=== PATIENT | female | born 1980 | race Hispanic/Latino ===

== ENCOUNTER 2017-02-12 17:12 | Inpatient (IN) | payer MEDICAID ==
[2017-02-12 17:40] LABS: BASO # 0.09 K/mm3 (0.0-2.0); BASO % 2.2 % (0.0-3.0); EOS % 0.5 % (1.5-5.0); GRAN # 2.22 (1.4-6.5); GRAN % 55.4 % (50.0-68.0); HEMATOCRIT 39.6 % (36.0-48.0); LYMPH # 1.2 (1.2-3.4); LYMPH % 30.9 % (22.0-35.0); MEAN CELL VOLUME 105.6 fl (80.0-105.0); MEAN CORPUSCULAR HEMOGLOBIN 36.5 pg (25.0-35.0); MEAN CORPUSCULAR HGB CONC 34.6 g/dl (31.0-37.0); MONO # 0.4 (0.1-0.6); RED CELL DISTRIBUTION WIDTH 15.4 % (11.5-14.5)
[2017-02-12 17:49] LABS: ALB/GLOB RATIO 1.5 (1.1-1.8); ALKALINE PHOSPHATASE 115 U/L (38-126); ALT/SGPT 26 U/L (7-56); AST/SGOT 31 U/L (14-36); BILIRUBIN,TOTAL 0.2 mg/dL (0.2-1.3); BLOOD UREA NITROGEN 4 mg/dL (7-21); CALCIUM 9.9 mg/dL (8.4-10.5); CARBON DIOXIDE 20 mmol/L (21-33); CHLORIDE 103 mmol/L (98-107); GFR AFRICAN-AMERICAN > 60; GLUCOSE,RANDOM 215 mg/dL (70-110); LIPASE 59 U/L (23-300); MAGNESIUM 1.8 mg/dL (1.7-2.2); POTASSIUM 3.7 mmol/L (3.6-5.0); SODIUM 146 mmol/L (132-148); TOTAL PROTEIN 8.4 g/dL (5.8-8.3)
[2017-02-12 17:52] LABS: VALPROIC ACID 68 ug/mL (50.0-100.0)
[2017-02-12 18:02] LABS: TROPONIN I < 0.01 ng/mL
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
[2017-02-12 18:20] LABS: PH,URINE 8.5 (4.7-8.0); URINE BILIRUBIN NEGATIVE (NEGATIVE); URINE BLOOD NEGATIVE (NEGATIVE); URINE GLUCOSE (UA) NEGATIVE (NEGATIVE); URINE KETONE TRACE mg/dL (NEGATIVE); URINE LEUKOCYTE ESTERASE NEGATIVE Leu/uL (NEGATIVE); URINE PROTEIN 30 mg/dL (<30 mg/dL); URINE UROBILINOGEN 0.2 E.U./dL (<1 E.U./dL)
[2017-02-12 18:29] LABS: URINE APPEARANCE SL CLOUDY (CLEAR); URINE COLOR YELLOW (YELLOW)
[2017-02-12] MEDS ORDERED: Sodium Chloride 0.9% 1,000 ML IV STA (18:29)
[2017-02-12 18:30] LABS: URINE RBC NEGATIVE /hpf (0-2); URINE WBC 0 - 2 /hpf (0-6)
[2017-02-12] MEDS ORDERED: Fosphenytoin 1,000 MG in Sodium Chloride 0.9% 50 ML IV STA (18:45)
[2017-02-12] MEDS ORDERED: Thiamine 100 mg/ml Inj IV STA ×2 (20:49→22:53)
--- NOTE | 2017-02-12 20:54 | CT ---
EXAM: CT Head Without Intravenous Contrast CLINICAL HISTORY: 36 years old, female; Signs and symptoms; Altered mental status/memory loss; Additional info: Alt ms TECHNIQUE: Axial computed tomography images of the head/brain without intravenous contrast. All CT scans at this facility use one or more dose reduction techniques, viz.: automated exposure control; ma/kV adjustment per patient size (including targeted exams where dose is matched to indication; i.e. head); or iterative reconstruction technique. COMPARISON: No relevant prior studies available. FINDINGS: Brain: No intracranial hemorrhage. No mass. No definite edema. Ventricles: No hydrocephalus. Bones/joints: No acute fracture. Soft tissues: Mild RIGHT parietal soft tissue swelling. Sinuses: Probable RIGHT maxillary retention cyst, incompletely imaged. Mastoid air cells: No mastoid effusion. Orbits: Unremarkable as visualized. IMPRESSION: 1. No acute intracranial abnormality. 2. Incidental/non-acute findings are described above.
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
[2017-02-12 22:15] LABS: VENOUS BLOOD GAS BASE EXCESS 3.3 mmol/L (0.0-2.0); VENOUS BLOOD PH 7.44 (7.32-7.43)
[2017-02-12] MEDS: Sodium Chloride 0.9% 1,000 ML IV SCH (22:39)
[2017-02-13] MEDS: Sodium Chloride 0.9% 1,000 ML IV SCH ×4 (05:30→21:04)
[2017-02-13 07:02] LABS: ALB/GLOB RATIO 1.4 (1.1-1.8); ALKALINE PHOSPHATASE 81 U/L (38-126); ALT/SGPT 27 U/L (7-56); AST/SGOT 25 U/L (14-36); BILIRUBIN,TOTAL 0.2 mg/dL (0.2-1.3); BLOOD UREA NITROGEN 5 mg/dL (7-21); CALCIUM 9.2 mg/dL (8.4-10.5); CARBON DIOXIDE 25 mmol/L (21-33); CHLORIDE 111 mmol/L (98-107); GFR AFRICAN-AMERICAN > 60; GLUCOSE,RANDOM 74 mg/dL (70-110); MAGNESIUM 1.5 mg/dL (1.7-2.2); PHOSPHOROUS 3.9 mg/dL (2.5-4.5); SODIUM 149 mmol/L (132-148); TOTAL PROTEIN 6.1 g/dL (5.8-8.3)
[2017-02-13 07:21] LABS: BASO # 0.05 K/mm3 (0.0-2.0); BASO % 0.7 % (0.0-3.0); EOS # 0.1 (0.0-0.7); EOS % 1.5 % (1.5-5.0); GRAN # 3.82 (1.4-6.5); GRAN % 55.5 % (50.0-68.0); HEMATOCRIT 36.3 % (36.0-48.0); LYMPH # 2.1 (1.2-3.4); LYMPH % 30.8 % (22.0-35.0); MEAN CELL VOLUME 107.4 fl (80.0-105.0); MEAN CORPUSCULAR HEMOGLOBIN 35.2 pg (25.0-35.0); MEAN CORPUSCULAR HGB CONC 32.8 g/dl (31.0-37.0); MEAN PLATELET VOLUME 9.3 fl (7.0-11.0); MONO # 0.8 (0.1-0.6); MONO % 11.5 % (1.0-6.0); RED CELL DISTRIBUTION WIDTH 15.6 % (11.5-14.5); WHITE BLOOD COUNT 6.9 10^3/ul (4.5-11.0)
[2017-02-13] MEDS ORDERED: Potassium Chloride 20 mEq ER Tab PO STA (07:26)
--- NOTE | 2017-02-13 07:29 | RAD ---
HISTORY: alt ms COMPARISON: No prior. FINDINGS: LUNGS: No active pulmonary disease. PLEURA: No significant pleural effusion identified, no pneumothorax apparent. CARDIOVASCULAR: Normal. OSSEOUS STRUCTURES: No significant abnormalities. VISUALIZED UPPER ABDOMEN: Gas seen distending the region of the gastric viscus incidentally. OTHER FINDINGS: None. IMPRESSION: No acute cardiopulmonary disease appreciated.
[2017-02-13] MEDS: Multi Vitamins 15 mL UD Oral Solution PO SCH (08:04)
--- NOTE | 2017-02-13 08:44 | CARD ---
APPROVED REPORT EKG Measurement Heart [id number] <Conclusion> Sinus tachycardia Possible Left atrial enlargement
[2017-02-13] MEDS: Pantoprazole 40 mg EC Tab PO SCH (09:20)
[2017-02-13] MEDS ORDERED: Divalproex 500 mg ER (ONCE DAILY formulation) PO SCH (10:00)
[2017-02-13] MEDS ORDERED: Phenytoin 100 mg/4 ml Oral Susp UD PO SCH (10:00)
[2017-02-13] MEDS: Divalproex 500 mg DR(BID formulation) PO SCH ×2 (13:09→21:03)
[2017-02-13 13:22] LABS: FOLATE 3.1 ng/mL
--- NOTE | 2017-02-13 13:24 | CP.PCM.PN ---
<TIFFANIE WELSH - Last Filed: 02/13/17 13:20> Subjective - Date & Time of Evaluation Date of Evaluation: 02/13/17 Time of Evaluation: 10:00 - Subjective Subjective: patient was seen and examined bedside. she states that she doesn't recall much of the events from yesterday except waking up and taking a shower like she normally does, and then only remembers waking up in the ICU bed. She states that the night before, she had a glass of wine and two cups of vodka (socially) with her friends but denies being intoxicated or withdrawing. She denies street drugs. States her PMD is Dr. Cooper and he's the one that prescribes her seizure meds. She states that she is only on Dilantin and Depakote for Bipolar dz. She states that her seizures usually present as vigorous shaking, bleeding in ears and foaming at mouth. She states that she lives w/ brother and dad, and states that they admitted she had a seizure last night. Today, she denied any cp , palpitations, sob, fever, n/v, confusion, or weakness. denies falls/head trauma, preceding symptoms/events, recent illness or sick contacts. Objective - Vital Signs/Intake and Output Vital Signs (last 24 hours): Temp Pulse Resp BP Pulse Ox 98.4 F 93 H 17 121/73 100 02/13/17 04:00 02/13/17 12:10 02/13/17 12:10 02/13/17 11:00 02/13/17 12:10 Intake and Output: 02/13/17 02/13/17 06:59 18:59 Intake Total 900 Balance 900 - Medications Medications: Current Medications Chlordiazepoxide (Librium) 10 mg PO Q8 PRN; Protocol PRN Reason: Symptoms of alcohol withdrawl Clonazepam (Klonopin) 0.5 mg PO BID [facility] PRN Reason: Protocol Last Admin: 02/13/17 09:26 Dose: 0.5 mg Divalproex Sodium (Depakote Dr(*Bid*)) 500 mg PO BID [facility] PRN Reason: Protocol Last Admin: 02/13/17 13:09 Dose: 500 mg Escitalopram Oxalate (Lexapro) 10 mg PO DAILY [facility] Last Admin: 02/13/17 09:20 Dose: 10 mg Folic Acid (Folic Acid) 1 mg PO DAILY [facility] Last Admin: 02/13/17 09:20 Dose: 1 mg Heparin Sodium (Porcine) (Heparin) 5,000 units SC Q12 [facility] PRN Reason: Protocol Last Admin: 02/13/17 09:20 Dose: 5,000 units Sodium Chloride (Sodium Chloride 0.9%) 1,000 mls @ 150 mls/hr IV .Q6H40M [facility] Last Admin: 02/13/17 05:30 Dose: 150 mls/hr Lorazepam (Ativan) 2 mg IVP Q4H PRN; Protocol PRN Reason: Seizure activity Magnesium Oxide (Mag-Ox) 400 mg PO BID [facility] Multivitamins/Vitamin C (Multi-Delyn Liquid) 15 ml PO 0800 [facility] Last Admin: 02/13/17 08:04 Dose: 15 ml Pantoprazole Sodium (Protonix Ec Tab) 40 mg PO DAILY [facility] Last Admin: 02/13/17 09:20 Dose: 40 mg Phenytoin (Dilantin) 100 mg PO TID [facility] Last Admin: 02/13/17 09:28 Dose: 100 mg Quetiapine Fumarate (Seroquel) 100 mg PO HS [facility] PRN Reason: Protocol Thiamine HCl (Vitamin B1 Tab) 100 mg PO DAILY [facility] Last Admin: 02/13/17 09:20 Dose: 100 mg - Labs Labs: 02/13/17 06:15 02/13/17 06:15 - Constitutional Appears: Well, No Acute Distress - Head Exam Head Exam: ATRAUMATIC, NORMAL INSPECTION, NORMOCEPHALIC - Eye Exam Eye Exam: EOMI, Normal appearance, PERRL Pupil Exam: NORMAL ACCOMODATION - ENT Exam ENT Exam: Mucous Membranes Moist, Normal Exam, Normal External Ear Exam - Neck Exam Neck Exam: Full ROM, Normal Inspection. absent: Meningismus - Respiratory Exam Respiratory Exam: Clear to Ausculation Bilateral, NORMAL BREATHING PATTERN. absent: Accessory Muscle Use, Rales, Rhonchi, Wheezes, Respiratory Distress - Cardiovascular Exam Cardiovascular Exam: RRR, +S1, +S2. absent: Gallop, JVD, Rubs - GI/Abdominal Exam GI & Abdominal Exam: Soft, Normal Bowel Sounds. absent: Distended, Tenderness - Extremities Exam Extremities Exam: Normal Inspection. absent: Calf Tenderness, Pedal Edema - Back Exam Back Exam: NORMAL INSPECTION - Neurological Exam Neurological Exam: Alert, Awake, CN II-XII Intact, Oriented x3. absent: Motor Sensory Deficit Neuro motor strength exam: Left Upper Extremity: 5, Right Upper Extremity: 5, Left Lower Extremity: 5, Right Lower Extremity: 5 Additional comments: pt oriented but cannot recall events of yesterday not confused, and carries coherent conversation well no facial asymmetry, focal weakness, facial droop, tremors - Psychiatric Exam Psychiatric exam: Normal Affect, Normal Mood - Skin Skin Exam: Normal Color, Warm Assessment and Plan - Assessment and Plan (Free Text) Assessment: 36 yo F PMH seizure disorder, bipolar dz, recent medical overdose (klonopin), ETOH abuse, asthma and uterine and breast CA 9in remission) presented to ED w/ AMS. Now alert and responsive on HD2; pt downgraded to remote tele. AMS likely 2 /2 seizure vs CVA vs infectious vs alcohol/substance/med overdose vs psych causes. Plan: 1. AMS, of un-identified etiology, likely psychosis - CT head showed no acute intracranial abnormality, but +mild R parietal soft tissue swelling - CXR unremarkable - Troponin I negative x1 - EKG done and was sinus tachy w/ possible LA enlargement - Thyroid panel ordered to r/o endocrine causes - EEG ordered to r/o seizure activity w/ postictal state - CT findings may suggest some head trauma, r/o TBI? - Neurology consulted, recs appreciated - B12 level normal - afebrile, clean UA and no leukocytosis, unlikely infectious cause - UDS+ benzos - ETOH level 35 - psych consulted for possible psychosis - cont thiamine, MV, folic acid 2. Hx seizures - Phenytoin level trended - cont Dilantin - Ativan and Librium PRN for seizure activity/ETOH withdrawal 3. Hypokalemia - repleted - f/u BMP 4. Hyperglycemia, no prior hx - resolved w/ no intervention 5. Hypomagnesemia - repleting - f/u level 6. Increased lactate - improving on IVF - Lactate initially 7.1, then 2.8 7. Hx Bipolar dz - cont Seroquel, Lexapro, Klonopin Regular diet Heparin/PTX NS 150 Patient was seen, evaluated and discussed w/ attending, Dr. Haroon Welsh PGY1 <Sade Patiño - Last Filed: 02/14/17 15:14> Objective - Vital Signs/Intake and Output Vital Signs (last 24 hours): Temp Pulse Resp BP Pulse Ox 98.4 F 80 16 116/65 99 02/14/17 12:00 02/14/17 13:00 02/14/17 13:00 02/14/17 13:00 02/14/17 13:00 Intake and Output: 02/14/17 02/14/17 06:59 18:59 Intake Total 1200 Balance 1200 - Labs Labs: 02/14/17 06:30 02/14/17 06:30 Attending/Attestation - Attestation I have personally seen and examined this patient.: Yes I have fully participated in the care of the patient.: Yes I have reviewed all pertinent clinical information, including history, physical exam and plan: Yes Notes (Text): I have seen and examined the patient at bedside. Agree with the above note with the following additions/ exceptions: Briefly this is 36 year old female with history of seizure disorder, bipolar disorder, recent klonopin overdose, alcohol abuse, asthma, uterine and breast cancer in remission who was admitted for AMS. She was pacing into the shower with her clothes on. As per patient, her family noticed a tonic clonic seizure followed by post ictal episode when she became unresponsive. Patient cannot recall these events. Neuro and psych consult pending. Patient denies use of street drugs. EEG pending. Follow up phenytoin and depakote level. Start MVI, thiamine and folic acid given history of alcohol abuse. Potassium was repleted. Mag level pending. She has increase lactate level upon admission which can be due to seizure and its trending down. Continue IVF. There is no indication to start antibiotics at this time. Upon discharge patient will follow up with Dr Cooper. Dr Sade Patiño
[2017-02-13 14:05] LABS: FREE T4 0.93 ng/dL (0.78-2.19)
[2017-02-13 14:19] LABS: THYROID STIMULATING HORMONE 1.92 mIU/mL (0.46-4.68)
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
--- NOTE | 2017-02-13 16:08 | EEG ---
DATE: 02/13/2017 CONDITION OF THE RECORDING: Drowsy. DIAGNOSIS: Seizure. MEDICATIONS: Reviewed by nurse per reconciliation sheet. INTERPRETATION: This is a 16-channel international recording. Background activity was composed of 7 to 8 cycles per second. There was a small amount of beta activity of 16 to 20 cycles per second seen in this recording. There was increased amount of theta activity of 5 to 7 cycles per second seen in this tracing. Drowsiness was characterized by mixed theta and beta activities. Sleep was characterized by vertex transient waves, sleep spindles, and bilateral slowing. Photic stimulation showed no change in the tracing. No paroxysmal activity noted in this recording. There was some mild intermittent episodes of slowing throughout the EEG. CONCLUSION: This is an abnormal EEG due to presence of mild diffuse slowing consistent with mild bilateral cerebral dysfunction. No evidence of any epileptiform activity. Please clinically correlate. Brody Massey MD
[2017-02-13 17:20] VITALS: O2SAT 99
[2017-02-13] MEDS: Magnesium Oxide 400 mg Tab UD PO SCH (17:30)
--- NOTE | 2017-02-13 22:02 | CON ---
HISTORY OF PRESENT ILLNESS: The patient is a 36-year-old female with a reported history of bipolar disorder. The patient has history of alcohol use disorder, seizure disorder and multiple psychiatric admissions in the past, most recent was about 5 days ago, on 07 of February. The patient was admitted on the CCU unit for erratic behavior and disorganized behavior and possible seizures. The patient was seen and examined today. Medications reviewed. Previous discharge notes reviewed. Most recently, the patient was discharged from the [facility] on 07 of February. Discharge medications were Depakote 500 mg twice a day, Lexapro 10 mg daily, ReVia 50 mg daily and Seroquel 100 mg at the nighttime. The patient reports that after she was discharged from the hospital she was doing well. The patient denied being depressed; denied thoughts of harming herself or others, denied intents or plan. The patient reports that the main reason why she came to the hospital, it was the seizures and the patient said that she does not remember episode what happened prior to coming to the hospital, but the patient adamantly denied that she wanted to end up her life and that she wanted to overdose on medication. The patient said that at present moment she feels fine. The patient reported that she is not depressed. Denied hearing voices. Denied seeing things. The patient reported to feel irritable. Denied mind racing. The patient reported as being compliant with the medication and as per lab report, the patient's Depakote level was 68 and phenytoin level was 5. Besides that, the patient denied history of suicidal attempts in the past. The patient denied family history of suicidal attempt. PHYSICAL EXAMINATION: This food writer reviewed vital signs, vital signs seem to be stable; pulse is 88, respirations 22, oxygen saturation is 99%. MEDICATIONS: Reviewed. The patient is on Librium 10 mg q. 8 hours as needed, Klonopin 0.5 mg twice a day, Depakote 500 mg twice a day, Lexapro 10 mg daily, folic acid 1 mg daily, heparin and she also is on Keppra 500 mg twice a day, Ativan 2 mg IV push every 4 hours for seizure activities as needed, magnesium oxide, Protonix, Seroquel 100 mg at the nighttime, sodium chloride, vitamin B1. LABORATORY DATA: Reviewed. MENTAL STATUS EXAMINATION: The patient appears to be alert, oriented, pleasant, cooperative, mildly irritable. Intermittent eye contact. Speech was normal rate on quality and quantity. Mood described "I'm feeling fine, I'm not depressed." Affect was constricted, but reactive. Mood congruent. Thought process was coherent and goal directed. Thought content: The patient denied visual, auditory or tactile hallucinations. Denied paranoid ideation. The patient denied thoughts of harming herself or others, denied intents or plan. Insight and judgement are fair. Impulses are well controlled. IMPRESSION: As per history, a history of bipolar disorder, seizure disorder and alcohol use disorder. The patient's alcohol level at the time of admission was 35 and phenytoin level was 5. PLAN: The patient denied being depressed, denied thoughts of harming herself or others, denied prior episode of overdosing on medication. The patient's medications resumed. This food writer will follow up on this patient to just to make sure that this food writer is not missing anything, but the patient adamantly denied that she wanted to end up her life prior to coming to the hospital. Her bizarre and disorganized behavior could be related to the fact that she has seizure disorder. Should you have any questions give me a call back. Thank you very much. Esperanza Weaver MD
[2017-02-14 07:35] LABS: BASO # 0.06 K/mm3 (0.0-2.0); BASO % 1.2 % (0.0-3.0); EOS # 0.1 (0.0-0.7); EOS % 2.5 % (1.5-5.0); GRAN # 1.59 (1.4-6.5); GRAN % 32.8 % (50.0-68.0); HEMATOCRIT 34.5 % (36.0-48.0); LYMPH # 2.6 (1.2-3.4); LYMPH % 53.4 % (22.0-35.0); MEAN CELL VOLUME 106.8 fl (80.0-105.0); MEAN CORPUSCULAR HEMOGLOBIN 35.3 pg (25.0-35.0); MEAN PLATELET VOLUME 9.4 fl (7.0-11.0); MONO # 0.5 (0.1-0.6); MONO % 10.1 % (1.0-6.0); RED CELL DISTRIBUTION WIDTH 15.3 % (11.5-14.5); WHITE BLOOD COUNT 4.9 10^3/ul (4.5-11.0)
[2017-02-14 07:58] LABS: ALB/GLOB RATIO 1.1 (1.1-1.8); ALKALINE PHOSPHATASE 77 U/L (38-126); ALT/SGPT 19 U/L (7-56); AST/SGOT 20 U/L (14-36); BILIRUBIN,TOTAL 0.4 mg/dL (0.2-1.3); BLOOD UREA NITROGEN 4 mg/dL (7-21); CALCIUM 8.8 mg/dL (8.4-10.5); CARBON DIOXIDE 25 mmol/L (21-33); CHLORIDE 106 mmol/L (95-110); GFR AFRICAN-AMERICAN > 60; GLUCOSE,RANDOM 76 mg/dL (70-110); POTASSIUM 3.5 mmol/L (3.6-5.0); SODIUM 140 mmol/L (132-148); TOTAL PROTEIN 5.9 g/dL (5.8-8.3)
[2017-02-14] MEDS: Multi Vitamins 15 mL UD Oral Solution PO SCH (08:45)
[2017-02-14] MEDS: Pantoprazole 40 mg EC Tab PO SCH ×2 (08:46→09:04)
[2017-02-14] MEDS: Magnesium Oxide 400 mg Tab UD PO SCH ×2 (08:47→09:04)
[2017-02-14] MEDS: Divalproex 500 mg DR(BID formulation) PO SCH (08:48)
[2017-02-14] MEDS ORDERED: Potassium Chloride 20 mEq ER Tab PO ONE (09:33)
[2017-02-14] MEDS: Sodium Chloride 0.9% 1,000 ML IV SCH (12:09)
[2017-02-14 14:17] VITALS: TEMP 98.4
[2017-02-14 14:18] VITALS: BP 116/65; PULSE 80; RESP 16
--- NOTE | 2017-02-14 16:18 | PN ---
SUBJECTIVE: The patient was followed up. This medical underwriter asked the patient about presentation prior to coming to the hospital because based on emergency room documentation the patient was confused, disorganized and was taking shower with the clothes on. The patient thought that whenever she has seizure she would act bizarre and irrational and the patient said that she does not remember doing that. The patient also said that she is not depressed. She denied any thoughts of harming herself or others. She denied any thoughts of harming others or self prior to coming to the hospital. The patient reported that she feels better, expressed no concerns. The patient still wants to follow up with outpatient psychiatrist. The patient has appointment. Please see previous notes. PHYSICAL EXAMINATION: VITAL SIGNS: Stable. MEDICATIONS: Reviewed. LABORATORY DATA: Reviewed. Discussed with Dr. Tunde Patiño. MENTAL STATUS EXAMINATION: The patient presented to be alert and oriented, pleasant, cooperative, intermittent eye contact. Speech was normal rate on quality and quantity. Mood described "I feel fine, I feel okay." Affect was reactive. Mood congruent. Thought process was coherent and goal directed. Thought content, the patient denied visual, auditory, or tactile hallucinations. Denied paranoid ideation. The patient denied thoughts of harming herself or others, denied intents or plan. Insight and judgment are fair. Impulses are well controlled. IMPRESSION: As per history, the patient has bipolar disorder and alcohol addiction. The patient also admitted on the medical site for confusion and seizure episode. PLAN: Continue current management. The patient was advised to take medication as it was prescribed. The patient also was advised to stay away from the alcohol and was educated about naltrexone as well as Vivitrol. Meanwhile, the patient poses no imminent danger to self or others. This medical underwriter will sign off. Should you have any questions, give me a call back. Esperanza Weaver MD
--- NOTE | 2017-02-14 18:15 | CP.PCM.DIS ---
<TIFFANIE MCDERMOTT - Last Filed: 02/14/17 18:34> Provider - Provider Date of Admission: 02/12/17 20:34 Attending physician: Sade Patiño MD Time Spent in preparation of Discharge (in minutes): 50 Hospital Course - Lab Results Lab Results: Most Recent Lab Values WBC 4.9 10^3/ul (4.5-11.0) D 02/14/17 06:30 RBC 3.23 10^6/uL (3.5-6.1) L 02/14/17 06:30 Hgb 11.4 g/dL (12.0-16.0) L 02/14/17 06:30 Hct 34.5 % (36.0-48.0) L 02/14/17 06:30 MCV 106.8 fl (80.0-105.0) H 02/14/17 06:30 MCH 35.3 pg (25.0-35.0) H 02/14/17 06:30 MCHC 33.0 g/dl (31.0-37.0) 02/14/17 06:30 RDW 15.3 % (11.5-14.5) H 02/14/17 06:30 Plt Count 271 10^3/uL (120.0-450.0) 02/14/17 06:30 MPV 9.4 fl (7.0-11.0) 02/14/17 06:30 Gran % 32.8 % (50.0-68.0) L 02/14/17 06:30 Lymph % (Auto) 53.4 % (22.0-35.0) H 02/14/17 06:30 [place] % (Auto) 10.1 % (1.0-6.0) H 02/14/17 06:30 Eos % (Auto) 2.5 % (1.5-5.0) 02/14/17 06:30 Baso % (Auto) 1.2 % (0.0-3.0) 02/14/17 06:30 Gran # 1.59 (1.4-6.5) 02/14/17 06:30 Lymph # 2.6 (1.2-3.4) 02/14/17 06:30 Motley # 0.5 (0.1-0.6) 02/14/17 06:30 Eos # 0.1 (0.0-0.7) 02/14/17 06:30 Baso # 0.06 K/mm3 (0.0-2.0) 02/14/17 06:30 pO2 37 mm/Hg (30-55) 02/12/17 22:10 VBG pH 7.44 (7.32-7.43) H 02/12/17 22:10 VBG pCO2 41.0 (40-60) 02/12/17 22:10 VBG HCO3 27.8 mmol/l (21-28) 02/12/17 22:10 VBG Total CO2 29.1 mmol.L (22-28) H 02/12/17 22:10 VBG O2 Sat (Calc) 75.7 % (40-65) H 02/12/17 22:10 VBG Base Excess 3.3 mmol/L (0.0-2.0) H 02/12/17 22:10 VBG Potassium 3.7 mmol/L (3.6-5.2) 02/12/17 22:10 Sodium 143.0 mmol/L (132-148) 02/12/17 22:10 Chloride 109.0 mmol/L (98-107) H 02/12/17 22:10 Glucose 97 mg/dl (65-105) 02/12/17 22:10 Lactate 2.8 mmol/L (0.7-2.1) H 02/12/17 22:10 FiO2 21.0 % 02/12/17 22:10 Sodium 140 mmol/L (132-148) 02/14/17 06:30 Potassium 3.5 mmol/L (3.6-5.0) L 02/14/17 06:30 Chloride 106 mmol/L (95-110) 02/14/17 06:30 Carbon Dioxide 25 mmol/L (21-33) 02/14/17 06:30 Anion Gap 13 (10-20) 02/14/17 06:30 BUN 4 mg/dL (7-21) L 02/14/17 06:30 Creatinine 0.4 mg/dL (0.5-1.4) L 02/14/17 06:30 Est GFR ( Amer) > 60 02/14/17 06:30 Est GFR (Non-Af Amer) > 60 02/14/17 06:30 POC Glucose (mg/dL) 87 mg/dL (65-110) 02/14/17 11:15 Random Glucose 76 mg/dL (70-110) 02/14/17 06:30 Lactic Acid 1.7 mmol/L (0.7-2.1) 02/13/17 06:15 Calcium 8.8 mg/dL (8.4-10.5) 02/14/17 06:30 Phosphorus 3.9 mg/dL (2.5-4.5) 02/13/17 06:15 Magnesium 1.5 mg/dL (1.7-2.2) L 02/13/17 06:15 Total Bilirubin 0.4 mg/dL (0.2-1.3) 02/14/17 06:30 AST 20 U/L (14-36) 02/14/17 06:30 ALT 19 U/L (7-56) 02/14/17 06:30 Alkaline Phosphatase 77 U/L (38-126) 02/14/17 06:30 Lactate Dehydrogenase 477 U/L (333-699) 02/12/17 17:17 Total Creatine Kinase 55 U/L (35-230) 02/12/17 17:17 Troponin I < 0.01 ng/mL 02/12/17 17:17 Total Protein 5.9 g/dL (5.8-8.3) 02/14/17 06:30 Albumin 3.1 g/dL (3.0-4.8) 02/14/17 06:30 Globulin 2.8 gm/dL 02/14/17 06:30 Albumin/Globulin Ratio 1.1 (1.1-1.8) 02/14/17 06:30 Lipase 59 U/L (23-300) 02/12/17 17:17 Vitamin B12 248 pg/mL (239-931) 02/13/17 06:15 25-OH Vitamin D Total 28.0 NG/ML (30.0-100.0) L 02/13/17 06:15 Folate 3.1 ng/mL 02/13/17 06:15 Free T4 0.93 ng/dL (0.78-2.19) 02/13/17 13:20 TSH 3rd Generation 1.92 mIU/mL (0.46-4.68) 02/13/17 13:20 Beta HCG, Quant < 2.39 mIU/mL (0-6.15) 02/12/17 17:49 Venous Blood Potassium 3.7 mmol/L (3.6-5.2) 02/12/17 22:10 Urine Color Yellow (YELLOW) 02/12/17 17:49 Urine Appearance Sl cloudy (CLEAR) 02/12/17 17:49 Urine pH 8.5 (4.7-8.0) 02/12/17 17:49 Ur Specific [place] 1.015 (1.005-1.035) 02/12/17 17:49 Urine Protein 30 mg/dL (<30 mg/dL) H 02/12/17 17:49 Urine Glucose (UA) Negative mg/dL (NEGATIVE) 02/12/17 17:49 Urine Ketones Trace mg/dL (NEGATIVE) H 02/12/17 17:49 Urine Blood Negative (NEGATIVE) 02/12/17 17:49 Urine Nitrate Negative (NEGATIVE) 02/12/17 17:49 Urine Bilirubin Negative (NEGATIVE) 02/12/17 17:49 Urine Urobilinogen 0.2 E.U./dL (<1 E.U./dL) 02/12/17 17:49 Ur Leukocyte Esterase Negative An/uL (NEGATIVE) 02/12/17 17:49 Urine RBC Negative /hpf (0-2) 02/12/17 17:49 Urine WBC 0 - 2 /hpf (0-6) 02/12/17 17:49 Salicylates < 1 mg/dL (2.0-20.0) L 02/12/17 17:17 Urine Opiates Screen Negative (NEGATIVE) 02/12/17 17:49 Urine Methadone Screen Negative (NEGATIVE) 02/12/17 17:49 Acetaminophen < 10.0 ug/ml (10.0-20.0) L 02/12/17 17:17 Ur Barbiturates Screen Negative (NEGATIVE) 02/12/17 17:49 Phenytoin 11 ug/mL (10-20) 02/13/17 06:15 Valproic Acid 68 ug/mL (50.0-100.0) 02/12/17 17:17 Ur Phencyclidine Scrn Negative (NEGATIVE) 02/12/17 17:49 Ur Amphetamines Screen Negative (NEGATIVE) 02/12/17 17:49 U Benzodiazepines Scrn Positive (NEGATIVE) H 02/12/17 17:49 U Oth Cocaine Metabols Negative (NEGATIVE) 02/12/17 17:49 U Cannabinoids Screen Negative (NEGATIVE) 02/12/17 17:49 Alcohol, Quantitative 35 mg/dL (0-10) H 02/12/17 17:17 - Hospital Course Hospital Course: Ms Marrero is a 36 year old female PMHx Bipolar disorder, overdose, EtOH abuse, seizure disorder, hypokalemia, seizure, asthma, breast and uterine cancer ( remission 7+ years) BIBA for AMS. Patient was recently discharged from psychiatry at [facility] 5 days ago where she was admitted for bipolar disorder, alc withdrawal, and severe alc use disorder. Prior to psych admission , patient was admitted in the ICU at [facility] in late November for overdosing on 10 pills of 0.5mg klonopin. patient was found by family pacing back and forth in the shower with her clothes on. Upon EMS arrival, patient closed her eyes and starting shouting random words and sounds. She refused to answer any questions for ER attending. No seizures were witnessed by family, EMS , and ED staff. pt initially unresponsive. CT head shwoed no acute intracranial abnormality, +mild R parietal lobe soft tissue swelling. Troponin negative. EKG was sinus tachy. UDS +benzos and ETOH level 35; lactate level initially 7.1 but after fluids came back down. pt was transferred to ICU for closer monitoring. Next morning, pt was awake and couldn't remember how she got there, and denied any ETOH oor substance abuse. Pt was downgraded to tele. Neurology was consulted. EEG was done and neurology suggested AMS due to psychosis due to negative EEG; psychosis likely due to med non-compliance or substance abuse. Pt switched from dilantin to Keppra. Psych was also consulted and recommended no inpatient intervention. On morning of d/c, pt was alert and oriented, with no complaints of fever, chills, n/v, cp, palpitations or dizziness. Pt was walked around the unit w/ resident monitoring; pt was stable and balanced. Pt being discharged on Keppra 500mg BID and told to continue meds. pt will f/u Dr. Cooper next week. - Date & Time of H&P Date of H&P: 02/12/17 Time of H&P: 22:00 Discharge Exam - Additional Findings Additional findings: - Constitutional Appears: Well, No Acute Distress - Head Exam Head Exam: ATRAUMATIC, NORMAL INSPECTION, NORMOCEPHALIC - Eye Exam Eye Exam: EOMI, Normal appearance, PERRL Pupil Exam: NORMAL ACCOMODATION - ENT Exam ENT Exam: Mucous Membranes Moist, Normal Exam, Normal External Ear Exam - Neck Exam Neck Exam: Full ROM, Normal Inspection. absent: Meningismus - Respiratory Exam Respiratory Exam: Clear to Ausculation Bilateral, NORMAL BREATHING PATTERN. absent: Accessory Muscle Use, Rales, Rhonchi, Wheezes, Respiratory Distress - Cardiovascular Exam Cardiovascular Exam: RRR, +S1, +S2. absent: Gallop, JVD, Rubs - GI/Abdominal Exam GI & Abdominal Exam: Soft, Normal Bowel Sounds. absent: Distended, Tenderness - Extremities Exam Extremities Exam: Normal Inspection. absent: Calf Tenderness, Pedal Edema - Back Exam Back Exam: NORMAL INSPECTION - Neurological Exam Neurological Exam: Alert, Awake, CN II-XII Intact, Oriented x3. absent: Motor Sensory Deficit Neuro motor strength exam: Left Upper Extremity: 5, Right Upper Extremity: 5, Left Lower Extremity: 5, Right Lower Extremity: 5 Additional comments: no facial asymmetry, focal weakness, facial droop, tremors - Psychiatric Exam Psychiatric exam: Normal Affect, Normal Mood - Skin Skin Exam: Normal Color, Warm Discharge Plan - Discharge Medications Prescriptions: RX: levETIRAcetam [Keppra] 500 mg PO BID #30 tab - Follow Up Plan Condition: CRITICAL Disposition: HOME/ ROUTINE Instructions: Abuse of Alcohol (DC), Women and Epilepsy (DC) Additional Instructions: d/c after pt able to walk - Keppra as prescribed, sent to preferred pharm - cont home meds - f/u Dr. Cooper <Sade Patiño - Last Filed: 02/14/17 18:50> Provider - Provider Date of Admission: 02/12/17 20:34 Attending physician: Sade Patiño MD Hospital Course - Lab Results Lab Results: Most Recent Lab Values WBC 4.9 10^3/ul (4.5-11.0) D 02/14/17 06:30 RBC 3.23 10^6/uL (3.5-6.1) L 02/14/17 06:30 Hgb 11.4 g/dL (12.0-16.0) L 02/14/17 06:30 Hct 34.5 % (36.0-48.0) L 02/14/17 06:30 MCV 106.8 fl (80.0-105.0) H 02/14/17 06:30 MCH 35.3 pg (25.0-35.0) H 02/14/17 06:30 MCHC 33.0 g/dl (31.0-37.0) 02/14/17 06:30 RDW 15.3 % (11.5-14.5) H 02/14/17 06:30 Plt Count 271 10^3/uL (120.0-450.0) 02/14/17 06:30 MPV 9.4 fl (7.0-11.0) 02/14/17 06:30 Gran % 32.8 % (50.0-68.0) L 02/14/17 06:30 Lymph % (Auto) 53.4 % (22.0-35.0) H 02/14/17 06:30 [place]ley % (Auto) 10.1 % (1.0-6.0) H 02/14/17 06:30 Eos % (Auto) 2.5 % (1.5-5.0) 02/14/17 06:30 Baso % (Auto) 1.2 % (0.0-3.0) 02/14/17 06:30 Gran # 1.59 (1.4-6.5) 02/14/17 06:30 Lymph # 2.6 (1.2-3.4) 02/14/17 06:30 Motley # 0.5 (0.1-0.6) 02/14/17 06:30 Eos # 0.1 (0.0-0.7) 02/14/17 06:30 Baso # 0.06 K/mm3 (0.0-2.0) 02/14/17 06:30 pO2 37 mm/Hg (30-55) 02/12/17 22:10 VBG pH 7.44 (7.32-7.43) H 02/12/17 22:10 VBG pCO2 41.0 (40-60) 02/12/17 22:10 VBG HCO3 27.8 mmol/l (21-28) 02/12/17 22:10 VBG Total CO2 29.1 mmol.L (22-28) H 02/12/17 22:10 VBG O2 Sat (Calc) 75.7 % (40-65) H 02/12/17 22:10 VBG Base Excess 3.3 mmol/L (0.0-2.0) H 02/12/17 22:10 VBG Potassium 3.7 mmol/L (3.6-5.2) 02/12/17 22:10 Sodium 143.0 mmol/L (132-148) 02/12/17 22:10 Chloride 109.0 mmol/L (98-107) H 02/12/17 22:10 Glucose 97 mg/dl (65-105) 02/12/17 22:10 Lactate 2.8 mmol/L (0.7-2.1) H 02/12/17 22:10 FiO2 21.0 % 02/12/17 22:10 Sodium 140 mmol/L (132-148) 02/14/17 06:30 Potassium 3.5 mmol/L (3.6-5.0) L 02/14/17 06:30 Chloride 106 mmol/L (95-110) 02/14/17 06:30 Carbon Dioxide 25 mmol/L (21-33) 02/14/17 06:30 Anion Gap 13 (10-20) 02/14/17 06:30 BUN 4 mg/dL (7-21) L 02/14/17 06:30 Creatinine 0.4 mg/dL (0.5-1.4) L 02/14/17 06:30 Est GFR ( Amer) > 60 02/14/17 06:30 Est GFR (Non-Af Amer) > 60 02/14/17 06:30 POC Glucose (mg/dL) 87 mg/dL (65-110) 02/14/17 11:15 Random Glucose 76 mg/dL (70-110) 02/14/17 06:30 Lactic Acid 1.7 mmol/L (0.7-2.1) 02/13/17 06:15 Calcium 8.8 mg/dL (8.4-10.5) 02/14/17 06:30 Phosphorus 3.9 mg/dL (2.5-4.5) 02/13/17 06:15 Magnesium 1.5 mg/dL (1.7-2.2) L 02/13/17 06:15 Total Bilirubin 0.4 mg/dL (0.2-1.3) 02/14/17 06:30 AST 20 U/L (14-36) 02/14/17 06:30 ALT 19 U/L (7-56) 02/14/17 06:30 Alkaline Phosphatase 77 U/L (38-126) 02/14/17 06:30 Lactate Dehydrogenase 477 U/L (333-699) 02/12/17 17:17 Total Creatine Kinase 55 U/L (35-230) 02/12/17 17:17 Troponin I < 0.01 ng/mL 02/12/17 17:17 Total Protein 5.9 g/dL (5.8-8.3) 02/14/17 06:30 Albumin 3.1 g/dL (3.0-4.8) 02/14/17 06:30 Globulin 2.8 gm/dL 02/14/17 06:30 Albumin/Globulin Ratio 1.1 (1.1-1.8) 02/14/17 06:30 Lipase 59 U/L (23-300) 02/12/17 17:17 Vitamin B12 248 pg/mL (239-931) 02/13/17 06:15 25-OH Vitamin D Total 28.0 NG/ML (30.0-100.0) L 02/13/17 06:15 Folate 3.1 ng/mL 02/13/17 06:15 Free T4 0.93 ng/dL (0.78-2.19) 02/13/17 13:20 TSH 3rd Generation 1.92 mIU/mL (0.46-4.68) 02/13/17 13:20 Beta HCG, Quant < 2.39 mIU/mL (0-6.15) 02/12/17 17:49 Venous Blood Potassium 3.7 mmol/L (3.6-5.2) 02/12/17 22:10 Urine Color Yellow (YELLOW) 02/12/17 17:49 Urine Appearance Sl cloudy (CLEAR) 02/12/17 17:49 Urine pH 8.5 (4.7-8.0) 02/12/17 17:49 Ur Specific [place] 1.015 (1.005-1.035) 02/12/17 17:49 Urine Protein 30 mg/dL (<30 mg/dL) H 02/12/17 17:49 Urine Glucose (UA) Negative mg/dL (NEGATIVE) 02/12/17 17:49 Urine Ketones Trace mg/dL (NEGATIVE) H 02/12/17 17:49 Urine Blood Negative (NEGATIVE) 02/12/17 17:49 Urine Nitrate Negative (NEGATIVE) 02/12/17 17:49 Urine Bilirubin Negative (NEGATIVE) 02/12/17 17:49 Urine Urobilinogen 0.2 E.U./dL (<1 E.U./dL) 02/12/17 17:49 Ur Leukocyte Esterase Negative An/uL (NEGATIVE) 02/12/17 17:49 Urine RBC Negative /hpf (0-2) 02/12/17 17:49 Urine WBC 0 - 2 /hpf (0-6) 02/12/17 17:49 Salicylates < 1 mg/dL (2.0-20.0) L 02/12/17 17:17 Urine Opiates Screen Negative (NEGATIVE) 02/12/17 17:49 Urine Methadone Screen Negative (NEGATIVE) 02/12/17 17:49 Acetaminophen < 10.0 ug/ml (10.0-20.0) L 02/12/17 17:17 Ur Barbiturates Screen Negative (NEGATIVE) 02/12/17 17:49 Phenytoin 11 ug/mL (10-20) 02/13/17 06:15 Valproic Acid 68 ug/mL (50.0-100.0) 02/12/17 17:17 Ur Phencyclidine Scrn Negative (NEGATIVE) 02/12/17 17:49 Ur Amphetamines Screen Negative (NEGATIVE) 02/12/17 17:49 U Benzodiazepines Scrn Positive (NEGATIVE) H 02/12/17 17:49 U Oth Cocaine Metabols Negative (NEGATIVE) 02/12/17 17:49 U Cannabinoids Screen Negative (NEGATIVE) 02/12/17 17:49 Alcohol, Quantitative 35 mg/dL (0-10) H 02/12/17 17:17 Attending/Attestation - Attestation I have personally seen and examined this patient.: Yes I have fully participated in the care of the patient.: Yes I have reviewed all pertinent clinical information, including history, physical exam and plan: Yes Notes (Text): I have seen and examined the patient at bedside. Agree with the above note with the following additions/ exceptions: Briefly this is 36 year old female with history of seizure disorder, bipolar disorder, recent klonopin overdose, alcohol abuse, asthma, uterine and breast cancer in remission who was admitted for AMS. She was pacing into the shower with her clothes on. As per patient, her family noticed a tonic clonic seizure followed by post ictal episode when she became unresponsive. Patient cannot recall these events. Neuro and psych consult appreciated. Patient denies use of street drugs. EEG showed generalized slowing. Dilantin was stopped and keppra was added by neuro. Continue depakote. Continue MVI, thiamine and folic acid given history of alcohol abuse. Psych has cleared the patient as well. Alcohol cessation counselling was provided. Upon discharge patient will follow up with Dr Cooper. Dr Sade Patiño
== END 2017-02-14 14:29 | disposition home or self-care (01) | DRG 889 ==
LOC: ED 17:12 → ERH 20:34 → CCU 21:08
PROVIDERS: ADMIT Internal Medicine; ATTEND Hospitalist
DX: G40.909 Epilepsy, unspecified, not intractable, without status epilepticus (principal); E87.2 Acidosis; E87.6 Hypokalemia; F31.9 Bipolar disorder, unspecified; F10.20 Alcohol dependence, uncomplicated; F17.210 Nicotine dependence, cigarettes, uncomplicated; J45.909 Unspecified asthma, uncomplicated; Y90.1 Blood alcohol level of 20-39 mg/100 ml; E83.42 Hypomagnesemia; R73.9 Hyperglycemia, unspecified; Z85.42 Personal history of malignant neoplasm of other parts of uterus; Z85.3 Personal history of malignant neoplasm of breast; Z98.82 Breast implant status

== ENCOUNTER 2017-02-15 03:22 | Emergency (ER) | payer MEDICAID ==
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
[2017-02-15 03:44] VITALS: BMI 26.6
[2017-02-15 04:58] LABS: VENOUS BLOOD GAS BASE EXCESS 1.1 mmol/L (0.0-2.0); VENOUS BLOOD PH 7.44 (7.32-7.43)
[2017-02-15 05:08] VITALS: TEMP 99.5
[2017-02-15 05:11] LABS: HEMATOCRIT 38.6 % (36.0-48.0); MEAN CELL VOLUME 105.5 fl (80.0-105.0); MEAN CORPUSCULAR HEMOGLOBIN 35.8 pg (25.0-35.0); MEAN CORPUSCULAR HGB CONC 33.9 g/dl (31.0-37.0); MEAN PLATELET VOLUME 9.7 fl (7.0-11.0); RED CELL DISTRIBUTION WIDTH 15.4 % (11.5-14.5); WHITE BLOOD COUNT 14.5 10^3/ul (4.5-11.0)
[2017-02-15 05:12] LABS: ALB/GLOB RATIO 1.4 (1.1-1.8); ALKALINE PHOSPHATASE 104 U/L (38-126); ALT/SGPT 20 U/L (7-56); AST/SGOT 26 U/L (14-36); BILIRUBIN,TOTAL 0.2 mg/dL (0.2-1.3); BLOOD UREA NITROGEN 5 mg/dL (7-21); CALCIUM 9.9 mg/dL (8.4-10.5); CARBON DIOXIDE 23 mmol/L (21-33); CHLORIDE 104 mmol/L (98-107); GFR AFRICAN-AMERICAN > 60; GLUCOSE,RANDOM 86 mg/dL (70-110); POTASSIUM 4.6 mmol/L (3.6-5.0); SODIUM 145 mmol/L (132-148); TOTAL PROTEIN 7.8 g/dL (5.8-8.3)
[2017-02-15] MEDS ORDERED: Sodium Chloride 0.9% 1,000 ML IV STA (05:28)
[2017-02-15 05:33] LABS: INR 0.98 (0.93-1.08); PARTIAL THROMBOPLASTIN TIME 26.5 Seconds (23.7-30.8)
--- NOTE | 2017-02-15 07:11 | ED PDOC ---
Physical Exam Vital Signs Temp Pulse Resp BP Pulse Ox 02/15/17 16:58 70 18 148/94 H 98 02/15/17 15:01 88 18 128/87 100 02/15/17 13:12 77 12 133/90 98 02/15/17 11:03 63 12 125/83 99 02/15/17 09:51 73 12 123/80 97 02/15/17 08:04 85 18 137/82 98 02/15/17 07:00 88 17 98 02/15/17 05:10 129 H 22 136/85 97 02/15/17 05:07 99.5 F 02/15/17 03:41 99 H 18 145/99 H 98 Finger Stick Blood Glucose: 77 Medical Decision Making ED Course and Treatment: 02/15/17 07:00 Patient signed out to me by Dr. Hairston. 02/15/17 10:04 CT HEAD WITHOUT CONTRAST: Dictator : Sterling Carrera MD FINDINGS: HEMORRHAGE: No intracranial hemorrhage. BRAIN: No evidence of large acute infarct. No obvious parenchymal mass or collection. There appears to be some prominence of the frontal cortical sulci at the vertex. VENTRICLES: Unremarkable. No hydrocephalus. CALVARIUM: No acute calvarial fracture seen. Previously noted mild right posterior superior parietal scalp swelling improved slightly. PARANASAL SINUSES: Mucous retention cyst right maxillary antrum again noted. Bilateral arlette bullosa. MASTOID AIR CELLS: Unremarkable as visualized. No inflammatory changes. OTHER FINDINGS:None. IMPRESSION: No acute intracranial hemorrhage. Slightly improved previously noted right posterior superior parietal scalp swelling 02/15/17 14:26 On reassessment, patient is now awake, alert, and eating. Patient is in no respiratory distress and denies any pain or discomfort. A lactate was repeated and has improved at 0.8 No signs of sepsis are currently noted. There has been no seizure activity noted or reported. Plan to consult PES. 02/15/17 15:32 Patient on re-evaluation is smiling, pleasant, conversive. She states that she does not remember how she got here although she also states that she was told that she had a seizure prior to arrival. No family members or friends have been available to interview since 7 am. She denies suicidal or homicidal ideation. Denies overdose or ingestion. States that she was recently admitted to the hospital 2 days ago and was started on new antiseizure medication Keppra, which she states she "just started to take". Initial labs from previous shift reviewed. I feel elevated WBC and lactate from initial evaluation possibly secondary to postictal period, as she is without any complaints, no fever, no cough, no shortness of breath, no rash, no abodminal pain, no urinary symptoms. No trauma reported or noted. Repeat lactate is unremarkable. Will have PES evaluated as patient reportedly with severe agitation during previous shift, although at this time she is pleasant and cooperative. No hallucinations noted. I discussed case with her neurologist, Dr. Lamin Massey, will give IV keppra loading dose. As she has prior history of known seizure, currently stable after 12 hour period of monitoring in ED, plan to discharge with instructions to continue seizure medication, follow-up with neurologist. Normal speech, steady gait. No headache, no fever, no facial droop noted. 02/15/17 17:37 Ambulatory, calm, and cooperative. Evaluated by PES and cleared from mental health standpoint. IV keppra administered. Patient with follow-up with neurologist. Stressed need for medication compliance, risks of noncompliance discussed. Patient alert and oriented. Risks of alcohol use with medication reviewed. 02/15/17 17:43 Patient denies dysuria or frequency or hematuria or any lower abdominal discomfort. Afebrile. - Lab Interpretations Lab Results: 02/15/17 04:25 02/15/17 04:25 Lab Results 02/15/17 17:11: Urine Color Yellow, Urine Appearance Clear, Urine pH 7.5, Ur Specific [place] 1.015, Urine Protein Negative, Urine Glucose (UA) Negative, Urine Ketones Negative, Urine Blood Negative, Urine Nitrate Negative, Urine Bilirubin Negative, Urine Urobilinogen 0.2, Ur Leukocyte Esterase Trace H, Urine RBC Pending, Urine WBC Pending 02/15/17 14:29: Valproic Acid 35 L 02/15/17 09:27: pO2 139 H, VBG pH 7.42, VBG pCO2 44.0, VBG HCO3 28.5 H, VBG Total CO2 29.9 H, VBG O2 Sat (Calc) 99.1 H, VBG Base Excess 3.4 H, VBG Potassium 3.9, Sodium 138.0, Chloride 106.0, Glucose 94, Lactate 0.8, FiO2 21.0 , Venous Blood Potassium 3.9 02/15/17 07:13: Urine Opiates Screen Negative, Urine Methadone Screen Negative, Ur Barbiturates Screen Negative, Ur Phencyclidine Scrn Negative, Ur Amphetamines Screen Negative, U Benzodiazepines Scrn Positive H, U Oth Cocaine Metabols Negative, U Cannabinoids Screen Negative 02/15/17 04:25: pO2 134 H, VBG pH 7.44 H, VBG pCO2 37.0 L, VBG HCO3 25.1, VBG Total CO2 26.2, VBG O2 Sat (Calc) 99.7 H, VBG Base Excess 1.1, VBG Potassium 4.7 , Sodium 141.0, Chloride 106.0, Glucose 88, Lactate 4.6 H*, FiO2 21.0, Venous Blood Potassium 4.7 02/15/17 04:25: WBC 14.5 H D, RBC 3.66, Hgb 13.1, Hct 38.6, MCV 105.5 H, MCH 35.8 H, MCHC 33.9, RDW 15.4 H, Plt Count 364, MPV 9.7 02/15/17 04:25: Alcohol, Quantitative 14 H 02/15/17 04:25: Sodium 145, Chloride 104, Potassium 4.6, Carbon Dioxide 23, Anion Gap 23 H, BUN 5 L, Creatinine 0.5, Est GFR ( Amer) > 60, Est GFR ( Non-Af Amer) > 60, Random Glucose 86, Calcium 9.9, Total Bilirubin 0.2, AST 26, ALT 20, Alkaline Phosphatase 104, Total Protein 7.8, Albumin 4.5, Globulin 3.3, Albumin/Globulin Ratio 1.4 02/15/17 04:25: PT 10.6, INR 0.98, APTT 26.5 - RAD Interpretation Radiology Orders: 02/15/17 03:47 CHEST PORTABLE [RAD] Stat 02/15/17 06:47 HEAD W/O CONTRAST [CT] Stat - Medication Orders Current Medication Orders: Discontinued Medications Sodium Chloride (Sodium Chloride 0.9%) 1,000 mls @ 999 mls/hr IV .Q1H1M STA Stop: 02/15/17 06:28 Last Admin: 02/15/17 05:30 Dose: 999 mls/hr Levetiracetam 1,000 mg/ Sodium (Chloride) 110 mls @ 440 mls/hr IV ONCE ONE Stop: 02/15/17 15:45 Last Admin: 02/15/17 17:06 Dose: 440 mls/hr Lorazepam (Ativan) Confirm Administered Dose 2 mg .ROUTE .STK-MED ONE Stop: 02/15/17 04:14 Last Admin: 02/15/17 04:39 Dose: Lorazepam (Ativan) 2 mg IM ONCE ONE Stop: 02/15/17 04:30 Last Admin: 02/15/17 04:30 Dose: 2 mg Lorazepam (Ativan) 2 mg IV ONCE ONE Stop: 02/15/17 06:51 Last Admin: 02/15/17 06:50 Dose: 2 mg - Scribe Statement The provider has reviewed the documentation as recorded by the Mac Perez Provider Scribe Attestation: All medical record entries made by the Scribe were at my direction and personally dictated by me. I have reviewed the chart and agree that the record accurately reflects my personal performance of the history, physical exam, medical decision making, and the department course for this patient. I have also personally directed, reviewed, and agree with the discharge instructions and disposition. Disposition/Present on Arrival - Present on Arrival Any Indicators Present on Arrival: No History of DVT/PE: No History of Uncontrolled Diabetes: No Urinary Catheter: No History of Decub. Ulcer: No History Surgical Site Infection Following: None - Disposition Have Diagnosis and Disposition been Completed?: Yes Diagnosis: Bipolar disorder, Seizure disorder Disposition: HOME/ ROUTINE Disposition Time: 17:40 Patient Plan: Discharge Patient Problems: Current Active Problems Problem Status Onset Altered mental status Acute Bipolar disorder Chronic Seizure disorder Chronic Condition: GOOD Discharge Instructions (ExitCare): Epilepsy (ED) Additional Instructions: Please take your seizure medication as directed. You were given dose of seizure medication while in the ED. You may not drive or operate heavy machinery unless cleared by a neurologist. Do not drink alcohol with your medications. For any headaches, any chest pain or shortness of breath, any abdominal pain, any nausea or vomiting, any unsteadiness, any shaking, any return of ANY symptoms, get re-evaluated immediately. Your case was discussed with your neurologist, Dr. Massey, please call for follow-up appointment within 1-2 days. Referrals: James Yoo MD [Primary Care Provider] - Follow up with primary Brody Massey MD [Staff Provider] - Follow up with primary
[2017-02-15 09:31] LABS: VENOUS BLOOD GAS BASE EXCESS 3.4 mmol/L (0.0-2.0); VENOUS BLOOD PH 7.42 (7.32-7.43)
--- NOTE | 2017-02-15 10:00 | CT ---
PROCEDURE: CT HEAD WITHOUT CONTRAST. HISTORY: ams COMPARISON: Comparison made with CT scan of the brain 02/12/2017. TECHNIQUE: Axial computed tomography images were obtained through the head/brain without intravenous contrast. Radiation dose: Total exam DLP = 725.84 mGy-cm. This CT exam was performed using one or more of the following dose reduction techniques: Automated exposure control, adjustment of the mA and/or kV according to patient size, and/or use of iterative reconstruction technique. FINDINGS: HEMORRHAGE: No intracranial hemorrhage. BRAIN: No evidence of large acute infarct. No obvious parenchymal mass or collection. There appears to be some prominence of the frontal cortical sulci at the vertex. VENTRICLES: Unremarkable. No hydrocephalus. CALVARIUM: No acute calvarial fracture seen. Previously noted mild right posterior superior parietal scalp swelling improved slightly. PARANASAL SINUSES: Mucous retention cyst right maxillary antrum again noted. Bilateral arlette bullosa. MASTOID AIR CELLS: Unremarkable as visualized. No inflammatory changes. OTHER FINDINGS: None. IMPRESSION: No acute intracranial hemorrhage. Slightly improved previously noted right posterior superior parietal scalp swelling
--- NOTE | 2017-02-15 12:39 | RAD ---
HISTORY: ams COMPARISON: Comparison made with prior chest radiograph 02/12/2017 Study is limited by motion artifact. FINDINGS: LUNGS: No active pulmonary disease. PLEURA: No significant pleural effusion identified, no pneumothorax apparent. CARDIOVASCULAR: Normal. OSSEOUS STRUCTURES: No significant abnormalities. VISUALIZED UPPER ABDOMEN: Normal. OTHER FINDINGS: None. IMPRESSION: No focal consolidation so far as can be seen within limitation of the study as above.
--- NOTE | 2017-02-15 13:18 | CARD ---
APPROVED REPORT EKG Measurement Heart [id number] <Conclusion> Normal sinus rhythm Possible Left atrial enlargement Cannot rule out Anterior infarct, age undetermined Abnormal ECG
[2017-02-15] MEDS ORDERED: levETIRAcetam 1,000 MG in Sodium Chloride 0.9% 100 ML IV ONE (15:31)
[2017-02-15 16:59] VITALS: O2SAT 98
[2017-02-15 17:32] LABS: PH,URINE 7.5 (4.7-8.0); URINE BILIRUBIN NEGATIVE (NEGATIVE); URINE BLOOD NEGATIVE (NEGATIVE); URINE GLUCOSE (UA) NEGATIVE (NEGATIVE); URINE KETONE NEGATIVE (NEGATIVE); URINE LEUKOCYTE ESTERASE TRACE Leu/uL (NEGATIVE); URINE PROTEIN NEGATIVE mg/dL (<30 mg/dL); URINE UROBILINOGEN 0.2 E.U./dL (<1 E.U./dL)
[2017-02-15 17:33] LABS: URINE APPEARANCE CLEAR (CLEAR); URINE COLOR YELLOW (YELLOW)
[2017-02-15 17:52] LABS: URINE BACTERIA MANY (NEG); URINE RBC NEGATIVE /hpf (0-2)
[2017-02-15 18:10] VITALS: BP 138/84; PULSE 88; RESP 12
== END 2017-02-15 18:24 | disposition home or self-care (01) ==
LOC: ED 03:22
DX: G40.909 Epilepsy, unspecified, not intractable, without status epilepticus (principal); F31.9 Bipolar disorder, unspecified
CPT/HCPCS: 70450; 71010; 80053; 80164; 80320; 80324; 80345; 80346; 80349; 80353; 80358; 80361; 81001; 82803; 83992; 85027; 85610; 85730; 87086; 90791; 93005; 96360; 96372; 99285; J1953; J2060; J7040

== ENCOUNTER 2017-02-17 11:34 | Emergency (ER) | payer MEDICAID ==
[2017-02-17 11:45] VITALS: BMI 19.9
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
[2017-02-17] MEDS ORDERED: Sodium Chloride 0.9% 1,000 ML IV SCH (12:00)
[2017-02-17 12:19] LABS: BASO # 0.04 K/mm3 (0.0-2.0); EOS # 0.1 (0.0-0.7); EOS % 3.1 % (1.5-5.0); GRAN # 1.98 (1.4-6.5); GRAN % 47.5 % (50.0-68.0); HEMATOCRIT 37.9 % (36.0-48.0); LYMPH # 1.5 (1.2-3.4); LYMPH % 34.9 % (22.0-35.0); MEAN CELL VOLUME 105.6 fl (80.0-105.0); MEAN CORPUSCULAR HEMOGLOBIN 35.4 pg (25.0-35.0); MEAN CORPUSCULAR HGB CONC 33.5 g/dl (31.0-37.0); MEAN PLATELET VOLUME 9.2 fl (7.0-11.0); MONO # 0.6 (0.1-0.6); MONO % 13.5 % (1.0-6.0); RED CELL DISTRIBUTION WIDTH 15.6 % (11.5-14.5); WHITE BLOOD COUNT 4.2 10^3/ul (4.5-11.0)
[2017-02-17 12:20] LABS: PH,URINE 7.5 (4.7-8.0); URINE BILIRUBIN NEGATIVE (NEGATIVE); URINE BLOOD NEGATIVE (NEGATIVE); URINE GLUCOSE (UA) NEGATIVE (NEGATIVE); URINE KETONE NEGATIVE (NEGATIVE); URINE LEUKOCYTE ESTERASE NEGATIVE Leu/uL (NEGATIVE); URINE PROTEIN TRACE mg/dL (<30 mg/dL); URINE UROBILINOGEN 0.2 E.U./dL (<1 E.U./dL)
[2017-02-17 12:24] LABS: ALB/GLOB RATIO 1.4 (1.1-1.8); ALKALINE PHOSPHATASE 85 U/L (38-126); ALT/SGPT 24 U/L (7-56); AST/SGOT 26 U/L (14-36); BILIRUBIN,TOTAL 0.2 mg/dL (0.2-1.3); BLOOD UREA NITROGEN 5 mg/dL (7-21); CALCIUM 9.1 mg/dL (8.4-10.5); CARBON DIOXIDE 24 mmol/L (21-33); CHLORIDE 106 mmol/L (98-107); GFR AFRICAN-AMERICAN > 60; GLUCOSE,RANDOM 93 mg/dL (70-110); POTASSIUM 3.9 mmol/L (3.6-5.0); SODIUM 144 mmol/L (132-148); TOTAL PROTEIN 6.9 g/dL (5.8-8.3)
[2017-02-17 12:28] LABS: URINE APPEARANCE CLEAR (CLEAR); URINE COLOR YELLOW (YELLOW)
[2017-02-17 12:47] LABS: URINE BACTERIA FEW (NEG); URINE EPITHELIAL CELLS 0 - 2 /hpf (0-5); URINE RBC NEGATIVE /hpf (0-2); URINE WBC 0 - 2 /hpf (0-6)
[2017-02-17 13:05] VITALS: TEMP 97.8; O2SAT 100
--- NOTE | 2017-02-17 14:01 | CT ---
PROCEDURE: CT HEAD WITHOUT CONTRAST. HISTORY: seizure COMPARISON: 02/15/2017. TECHNIQUE: Axial computed tomography images were obtained through the head/brain without intravenous contrast. Radiation dose: Total exam DLP = 757.42 mGy-cm. This CT exam was performed using one or more of the following dose reduction techniques: Automated exposure control, adjustment of the mA and/or kV according to patient size, and/or use of iterative reconstruction technique. FINDINGS: HEMORRHAGE: No intracranial hemorrhage. BRAIN: Santos-white matter differentiation is preserved. There is no mass, mass effect or abnormal extra-axial fluid collection. There is no territorial infarction. VENTRICLES: The ventricles are normal in size, shape and configuration. There is a prominent cisterna magna. CALVARIUM: The skull base and calvarium are normal. There is a small right parietal scalp hematoma. PARANASAL SINUSES: There is a retention cyst/ polyp in the right maxillary sinus. The remaining included paranasal sinuses are clear. MASTOID AIR CELLS: Predominantly clear. OTHER FINDINGS: None. IMPRESSION: No acute intracranial abnormality. There is a persistent clinical concern, an MRI of the brain without and with intravenous contrast is recommended for further evaluation.
[2017-02-17 19:44] VITALS: PULSE 85
--- NOTE | 2017-02-17 20:51 | CARD ---
APPROVED REPORT EKG Measurement Heart [id number] <Conclusion> Sinus tachycardia Possible Left atrial enlargement Borderline ECG
--- NOTE | 2017-02-17 20:52 | ED PDOC ---
Physical Exam Vital Signs Temp Pulse Resp BP Pulse Ox 02/17/17 19:38 85 20 122/86 100 02/17/17 16:29 77 16 137/88 100 02/17/17 15:29 79 21 128/86 100 02/17/17 13:03 97.8 F 110 H 20 128/84 100 02/17/17 12:04 117 H 154/102 H Finger Stick Blood Glucose: 91 Medical Decision Making Re-evaluation Time: 20:51 Reassessment Condition: Re-examined, Improved - Lab Interpretations Lab Results: 02/17/17 12:00 02/17/17 12:00 Lab Results 02/17/17 13:09: POC Glucose (mg/dL) 91 02/17/17 12:00: Salicylates < 1 L, Acetaminophen < 10.0 L 02/17/17 12:00: Beta HCG, Quant < 2.39 02/17/17 12:00: Alcohol, Quantitative 14 H 02/17/17 12:00: Urine Color Yellow, Urine Appearance Clear, Urine pH 7.5, Ur Specific [place] 1.010, Urine Protein Trace H, Urine Glucose (UA) Negative, Urine Ketones Negative, Urine Blood Negative, Urine Nitrate Negative, Urine Bilirubin Negative, Urine Urobilinogen 0.2, Ur Leukocyte Esterase Negative, Urine RBC Negative, Urine WBC 0 - 2, Ur Epithelial Cells 0 - 2, Urine Bacteria Few 02/17/17 12:00: Urine Opiates Screen Negative, Urine Methadone Screen Negative, Ur Barbiturates Screen Negative, Ur Phencyclidine Scrn Negative, Ur Amphetamines Screen Negative, U Benzodiazepines Scrn Positive H, U Oth Cocaine Metabols Negative, U Cannabinoids Screen Negative 02/17/17 12:00: Sodium 144, Potassium 3.9, Chloride 106, Carbon Dioxide 24, Anion Gap 18, BUN 5 L, Creatinine 0.5, Est GFR ( Amer) > 60, Est GFR (Non -Af Amer) > 60, Random Glucose 93, Calcium 9.1, Total Bilirubin 0.2, AST 26, ALT 24, Alkaline Phosphatase 85, Total Protein 6.9, Albumin 4.0, Globulin 2.9, Albumin/Globulin Ratio 1.4 02/17/17 12:00: WBC 4.2 L D, RBC 3.59, Hgb 12.7, Hct 37.9, MCV 105.6 H, MCH 35.4 H, MCHC 33.5, RDW 15.6 H, Plt Count 306, MPV 9.2, Gran % 47.5 L, Lymph % ( Auto) 34.9, [place] % (Auto) 13.5 H, Eos % (Auto) 3.1, Baso % (Auto) 1.0, Gran # 1.98, Lymph # 1.5, [place] # 0.6, Eos # 0.1, Baso # 0.04 - RAD Interpretation Radiology Orders: 02/17/17 11:45 HEAD W/O CONTRAST [CT] Stat - Medication Orders Current Medication Orders: Sodium Chloride (Sodium Chloride 0.9%) 1,000 mls @ 100 mls/hr IV .Q10H LISA Last Admin: 02/17/17 12:04 Dose: 100 mls/hr Discontinued Medications Lorazepam (Ativan) Confirm Administered Dose 2 mg .ROUTE .STK-MED ONE Stop: 02/17/17 11:47 Last Admin: 02/17/17 12:04 Dose: Lorazepam (Ativan) 2 mg IVP STAT STA Stop: 02/17/17 11:46 Last Admin: 02/17/17 12:04 Dose: 2 mg Disposition/Present on Arrival - Present on Arrival Any Indicators Present on Arrival: No History of DVT/PE: No History of Uncontrolled Diabetes: No Urinary Catheter: No History of Decub. Ulcer: No History Surgical Site Infection Following: None - Disposition Have Diagnosis and Disposition been Completed?: Yes Diagnosis: Seizure Disposition: HOME/ ROUTINE Disposition Time: 20:51 Patient Problems: Current Active Problems Problem Status Onset Seizure Acute Condition: FAIR Discharge Instructions (ExitCare): Recurrent Seizures in Adults (ED) Forms: [employer] (Yi)
[2017-02-17 21:41] VITALS: BP 143/90; RESP 18
== END 2017-02-17 21:30 | disposition home or self-care (01) ==
LOC: ED 11:34
DX: R56.9 Unspecified convulsions (principal)
CPT/HCPCS: 70450; 80053; 80320; 80324; 80329; 80345; 80346; 80349; 80353; 80358; 80361; 81001; 82948; 83992; 84702; 85025; 93005; 96374; 99291; J2060; J7040

== ENCOUNTER 2017-02-20 15:06 | Inpatient (IN) | payer MEDICAID ==
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
[2017-02-20 15:20] VITALS: BMI 22.6
[2017-02-20] MEDS ORDERED: levETIRAcetam 1,000 MG in Sodium Chloride 0.9% 100 ML IV ONE (15:23)
[2017-02-20 15:46] LABS: BASO # 0.04 K/mm3 (0.0-2.0); BASO % 0.2 % (0.0-3.0); EOS % 0.1 % (1.5-5.0); GRAN # 15.83 (1.4-6.5); GRAN % 90.2 % (50.0-68.0); HEMATOCRIT 39.5 % (36.0-48.0); LYMPH # 0.8 (1.2-3.4); LYMPH % 4.4 % (22.0-35.0); MEAN CELL VOLUME 105.9 fl (80.0-105.0); MEAN CORPUSCULAR HEMOGLOBIN 36.2 pg (25.0-35.0); MEAN CORPUSCULAR HGB CONC 34.2 g/dl (31.0-37.0); MEAN PLATELET VOLUME 9.5 fl (7.0-11.0); MONO # 0.9 (0.1-0.6); MONO % 5.1 % (1.0-6.0); PLATELET COUNT 373 10^3/uL (120.0-450.0); RED CELL DISTRIBUTION WIDTH 15.7 % (11.5-14.5); WHITE BLOOD COUNT 17.6 10^3/ul (4.5-11.0)
[2017-02-20 15:56] LABS: ALCOHOL SERUM < 10 mg/dL (0-10)
[2017-02-20 16:01] LABS: BAND 3 % (0-2); NEUTROPHIL 89 % (50.0-70.0); PLATELET ESTIMATE NORMAL (NORMAL)
[2017-02-20 16:09] LABS: VENOUS BLOOD GAS BASE EXCESS -0.4 mmol/L (0.0-2.0); VENOUS BLOOD PH 7.31 (7.32-7.43)
[2017-02-20 17:11] LABS: ALB/GLOB RATIO 1.6 (1.1-1.8); ALKALINE PHOSPHATASE 88 U/L (38-126); ALT/SGPT 22 U/L (7-56); AST/SGOT 20 U/L (14-36); BILIRUBIN,TOTAL 0.3 mg/dL (0.2-1.3); BLOOD UREA NITROGEN 9 mg/dL (7-21); CALCIUM 9.3 mg/dL (8.4-10.5); CARBON DIOXIDE 24 mmol/L (21-33); CHLORIDE 106 mmol/L (98-107); GFR AFRICAN-AMERICAN > 60; GLUCOSE,RANDOM 92 mg/dL (70-110); POTASSIUM 3.8 mmol/L (3.6-5.0); SODIUM 142 mmol/L (132-148); TOTAL PROTEIN 6.9 g/dL (5.8-8.3)
[2017-02-20] MEDS ORDERED: Vancomycin 1gm in NS 250ml 1 GM/250 ML BAG IVPB STA (17:20)
--- NOTE | 2017-02-20 17:36 | CT ---
PROCEDURE: CT HEAD WITHOUT CONTRAST. HISTORY: seizure COMPARISON: Contrast head CT performed 02/17/17 TECHNIQUE: Axial computed tomography images were obtained through the head/brain without intravenous contrast. Radiation dose: Total exam DLP = 774.23 MGy-cm. This CT exam was performed using one or more of the following dose reduction techniques: Automated exposure control, adjustment of the mA and/or kV according to patient size, and/or use of iterative reconstruction technique. FINDINGS: HEMORRHAGE: No intracranial hemorrhage. BRAIN: No mass effect or edema. The hook-white matter differentiation appears intact.Please note that MRI with diffusion imaging is more sensitive in the detection of acute ischemic event. VENTRICLES: No hydrocephalus. Prominent cisterna magna. CALVARIUM: Unremarkable. PARANASAL SINUSES: 2.1 x 1.6 cm mucosal polyp/ cyst within the right maxillary sinus. MASTOID AIR CELLS: Unremarkable as visualized. No inflammatory changes. OTHER FINDINGS: Small right posterior scalp hematoma. IMPRESSION: Small right posterior scalp hematoma. No acute intracranial pathology identified. 2.1 x 1.6 cm mucosal polyp/ cyst within the right maxillary sinus.
[2017-02-20 18:29] LABS: PH,URINE 7.5 (4.7-8.0); URINE BILIRUBIN NEGATIVE (NEGATIVE); URINE BLOOD NEGATIVE (NEGATIVE); URINE GLUCOSE (UA) NEGATIVE (NEGATIVE); URINE KETONE NEGATIVE (NEGATIVE); URINE LEUKOCYTE ESTERASE NEGATIVE Leu/uL (NEGATIVE); URINE PROTEIN NEGATIVE mg/dL (<30 mg/dL); URINE UROBILINOGEN 0.2 E.U./dL (<1 E.U./dL)
--- NOTE | 2017-02-20 18:32 | RAD ---
HISTORY: r/o PNA COMPARISON: Chest x-ray performed 02/15/17 TECHNIQUE: Chest, one view. FINDINGS: Examination limited by patient obliquity. LUNGS: Mild left basilar atelectasis. No focal consolidation. Please note that chest x-ray has limited sensitivity for the detection of pulmonary masses. PLEURA: No significant pleural effusion identified. No definite pneumothorax . CARDIOVASCULAR: Heart size appears within normal limits. OSSEOUS STRUCTURES: No acute osseous abnormality identified. VISUALIZED UPPER ABDOMEN: Unremarkable. OTHER FINDINGS: None. IMPRESSION: Mild left basilar atelectasis.
--- NOTE | 2017-02-20 18:33 | CARD ---
APPROVED REPORT EKG Measurement Heart [id number] <Conclusion> Sinus tachycardia Possible Left atrial enlargement Cannot rule out Anterior infarct, age undetermined Abnormal ECG
[2017-02-20 18:43] LABS: URINE APPEARANCE CLEAR (CLEAR); URINE COLOR YELLOW (YELLOW)
--- NOTE | 2017-02-20 18:53 | CP.PCM.PCO ---
<TIMOTHY ARANGO - Last Filed: 02/20/17 18:43> Physician Communication Note - Physician Communication Note Physician Communication Note: Patient evaluation in ED by ICU team Addendum Addendum: 02/20/17 18:44 This patient was seen and assessed at bedside in ED bed #2. Patient was unarousable on exam and unresponsive to verbal, tactile and noxious stimuli and hemodynamically stable. The freight inspector will monitor and reevaluate the patient to determine if she requires ICU monitoring in post-ictal state. <Haroon CONRAD,Josey Trinidad - Last Filed: 02/21/17 14:34> Attending/Attestation - Attestation I have personally seen and examined this patient.: Yes I have fully participated in the care of the patient.: Yes I have reviewed all pertinent clinical information: Yes Notes (Text): 02/21/17 14:31 36 y/o F w/ seizure disorder . On keppra and Depakote. Seizures x 2 yesterday and prolonged post ictal state. Currently aao x 3. cc time 35 min
--- NOTE | 2017-02-20 20:44 | ED PDOC ---
Physical Exam - Physical Exam Narrative Physical Exam (Text): 02/20/17 20:38 Patient with noted history as documented by Dr. Scott, endorsed to me, awaiting ICU re-evaluation for admission to the ICU. Patient with alt ms, possible seizure prior to arrival and witnessed seizure here in the ED; patient has received a total of 4mg of ativan and loaded with keppra; she is still altered at this time. Patient with tachycardia but hemodynamically stable. Awaiting ICU re-evaluation. Vital Signs Temp Pulse Resp BP Pulse Ox 02/20/17 18:54 105 H 18 137/89 98 02/20/17 18:07 97.5 F L 110 H 18 150/89 98 02/20/17 17:02 114 H 18 135/73 97 02/20/17 16:18 116 H 18 150/101 H 100 02/20/17 15:15 97.4 F L 80 20 123/98 H 100 Temperature: Afebrile Blood Pressure: Normal Pulse: Tachycardic Respiratory Rate: Normal Appearance: Positive for: Well-Appearing, Non-Toxic, Comfortable Pain Distress: None Mental Status: Positive for: Lethargic (but arousable to voice ) Finger Stick Blood Glucose: 108 - Systems Exam Head: Present: Atraumatic, Normocephalic Pupils: Present: PERRL Mouth: Present: Dry Respiratory/Chest: Present: Clear to Auscultation, Good Air Exchange. No: Respiratory Distress, Accessory Muscle Use Cardiovascular: Present: Regular Rate and Rhythm Abdomen: Present: Normal Bowel Sounds. No: Tenderness, Distention, Peritoneal Signs Neurological: Present: Other (lethargic but arousable to voice; no focalities) Medical Decision Making ED Course and Treatment: 02/20/17 20:47 Patient seen by ICU attending, Dr. Patiño - will be admitted to the ICU. She received vancomycin earlier, given WBC of 17K with recent positive urine culture. - Lab Interpretations Lab Results: 02/20/17 15:20 02/20/17 16:50 Lab Results 02/20/17 18:15: Urine Opiates Screen Negative, Urine Methadone Screen Negative, Ur Barbiturates Screen Negative, Ur Phencyclidine Scrn Negative, Ur Amphetamines Screen Negative, U Benzodiazepines Scrn Negative, U Oth Cocaine Metabols Negative, U Cannabinoids Screen Negative 02/20/17 18:15: Urine Color Yellow, Urine Appearance Clear, Urine pH 7.5, Ur Specific [place] 1.015, Urine Protein Negative, Urine Glucose (UA) Negative, Urine Ketones Negative, Urine Blood Negative, Urine Nitrate Negative, Urine Bilirubin Negative, Urine Urobilinogen 0.2, Ur Leukocyte Esterase Negative 02/20/17 16:50: Sodium 142, Chloride 106, Potassium 3.8, Carbon Dioxide 24, Anion Gap 16, BUN 9, Creatinine 0.4 L, Est GFR ( Amer) > 60, Est GFR (Non -Af Amer) > 60, Random Glucose 92, Calcium 9.3, Total Bilirubin 0.3, AST 20, ALT 22, Alkaline Phosphatase 88, Total Creatine Kinase 127, Total Protein 6.9, Albumin 4.2, Globulin 2.7, Albumin/Globulin Ratio 1.6 02/20/17 16:05: pO2 71 H, VBG pH 7.31 L, VBG pCO2 53.0, VBG HCO3 26.7, VBG Total CO2 28.3 H, VBG O2 Sat (Calc) 94.7 H, VBG Base Excess -0.4 L, VBG Potassium 8.4 H*, Sodium 134.0, Chloride 106.0, Glucose 100, Lactate 1.7, FiO2 21.0, Venous Blood Potassium 8.4 H* 02/20/17 15:20: Salicylates < 1 L, Acetaminophen < 10.0 L 02/20/17 15:20: Beta HCG, Quant < 2.39, Alcohol, Quantitative < 10 02/20/17 15:20: WBC 17.6 H D, RBC 3.73, Hgb 13.5, Hct 39.5, MCV 105.9 H, MCH 36.2 H, MCHC 34.2, RDW 15.7 H, Plt Count 373, MPV 9.5, Gran % 90.2 H, Lymph % ( Auto) 4.4 L, Mathews % (Auto) 5.1, Eos % (Auto) 0.1 L, Baso % (Auto) 0.2, Gran # 15.83 H, Lymph # 0.8 L, Mathews # 0.9 H, Eos # 0.0, Baso # 0.04, Neutrophils % ( Manual) 89 H, Band Neutrophils % 3 H, Lymphocytes % (Manual) 5 L, Monocytes % ( Manual) 3, Platelet Evaluation Normal 02/20/17 15:14: POC Glucose (mg/dL) 108 - RAD Interpretation Radiology Orders: 02/20/17 15:12 HEAD W/O CONTRAST [CT] Stat 02/20/17 16:08 CHEST PORTABLE [RAD] Stat - Medication Orders Current Medication Orders: Discontinued Medications Levetiracetam 1,000 mg/ Sodium (Chloride) 110 mls @ 440 mls/hr IV ONCE ONE Stop: 02/20/17 15:37 Last Admin: 02/20/17 16:04 Dose: 440 mls/hr eMAR Start Stop Document 02/20/17 16:04 IT (Rec: 02/20/17 16:04 IT [id number]) Intravenous Solution Start Date 02/20/17 Start Time 16:04 End Date 02/20/17 End time 16:20 Total Infusion Time 16 Vancomycin HCl (Vancomycin 1gm) 1 gm in 250 mls @ 167 mls/hr IVPB STAT STA PRN Reason: Protocol Stop: 02/20/17 18:49 Last Admin: 02/20/17 17:59 Dose: 167 mls/hr eMAR Start Stop Document 02/20/17 17:59 IT (Rec: 02/20/17 18:00 IT [id number]) Intravenous Solution Start Date 02/20/17 Start Time 17:59 End Date 02/20/17 End time 19:30 Total Infusion Time 91 Lorazepam (Ativan) Confirm Administered Dose 2 mg .ROUTE .STK-MED ONE Stop: 02/20/17 15:11 Lorazepam (Ativan) 2 mg IVP STAT STA Stop: 02/20/17 15:13 Lorazepam (Ativan) 2 mg IVP ONCE ONE PRN Reason: Protocol Stop: 02/20/17 15:34 Last Admin: 02/20/17 15:40 Dose: 2 mg IVP Administration Document 02/20/17 15:40 IT (Rec: 02/20/17 15:40 IT [id number]) Charges for Administration # of IVP Administrations 1 - 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 / has examined the patient and agrees with the treatment plan. Disposition/Present on Arrival - Present on Arrival Any Indicators Present on Arrival: No History of DVT/PE: No History of Uncontrolled Diabetes: No Urinary Catheter: No History of Decub. Ulcer: No History Surgical Site Infection Following: None - Disposition Have Diagnosis and Disposition been Completed?: Yes Diagnosis: Seizure Disposition: HOSPITALIZED Disposition Time: 19:40 Patient Plan: Admission, ICU Patient Problems: Current Active Problems Problem Status Onset Seizure Acute Condition: CRITICAL
[2017-02-20] MEDS ORDERED: Multivitamin (MVI) 10 ML, Thiamine 100 MG, Folic Acid 1 MG in Sodium Chloride 0.9% 1,00... IV ONE (20:52)
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
[2017-02-21] MEDS ORDERED: cefTRIAXone 1 gm 1 GM/100 ML BAG IVPB STA (01:38)
[2017-02-21] MEDS: Folic Acid 1 MG, Thiamine 100 MG, Multivitamin (MVI) 10 ML in Dextrose 5% In Water 1,00... IV SCH ×3 (01:52→23:00)
--- NOTE | 2017-02-21 07:46 | CP.CCUPN ---
CCU Subjective - Physician Review Events Since Last Encounter (Free Text): 02/21/17 07:46 Pt admitted to unit due to prolonged postical Subjective (Free Text): 02/21/17 07:53 Critical care progress note for Dr. Delroy Hale, PGY-1 Pt S & E at bedside. Pt is AOx3, no complaints, last thing pt remembers is someone placing SCDs on her leg, does not remember how she got to the hospital. States she is compliant with medications at home, denies current EToH use. Denies N/V/F/C, SOB , CP, ab pain, other complaints. Critical Care Time Spent (in minutes): 35 CCU Objective - Vital Signs / Intake & Output Vital Signs (Last 4 hours): Vital Signs Temp Pulse Resp BP Pulse Ox 02/21/17 04:20 105 H 48 H 95 02/21/17 04:10 105 H 14 95 02/21/17 04:00 98.9 F 102 H 16 134/78 95 02/21/17 03:50 107 H 21 95 Intake and Output (Last 8hrs): Intake & Output 02/20/17 02/21/17 02/21/17 22:59 06:59 14:59 Intake Total 1160 Balance 1160 Weight 63.503 kg Intake: IV 1160 Bilateral Antecubital 1160 Other: Voiding Method Toilet - Physical Exam Head: Positive for: Atraumatic, Normocephalic Extroacular Muscles: Positive for: EOMI Conjunctiva: Positive for: Normal Ears: Positive for: Normal Mouth: Positive for: Moist Mucous Membranes Nose (External): Positive for: Atraumatic Neck: Positive for: Normal Range of Motion Respiratory/Chest: Positive for: Clear to Auscultation, Good Air Exchange. Negative for: Respiratory Distress, Accessory Muscle Use Cardiovascular: Positive for: Regular Rate and Rhythm, Normal S1, S2. Negative for: Murmurs Abdomen: Positive for: Normal Bowel Sounds. Negative for: Tenderness, Distention, Peritoneal Signs Back: Positive for: Normal Inspection Upper Extremity: Positive for: Normal Inspection. Negative for: Cyanosis, Edema Lower Extremity: Positive for: Normal Inspection. Negative for: Edema Neurological: Positive for: GCS=15, CN II-XII Intact, Speech Normal Skin: Positive for: Warm, Dry, Normal Color. Negative for: Rashes Psychiatric: Positive for: Alert, Oriented x 3, Normal Insight, Normal Concentration - Medications Active Medications: Active Medications Generic Name Dose Route Start Last Admin Trade Name Freq PRN Reason Stop Dose Admin Divalproex Sodium 500 mg 02/21/17 10:00 Ines Wharton(*Bid*) PO BID LISA Protocol Folic Acid 1 mg/ Thiamine HCl 1,011.2 mls @ 100 mls/hr 02/21/17 01:15 01:52 100 mg/ Multivitamins/Vitamin IV 100 mls/hr C 10 ml/ Dextrose .Q10H7M LISA Administration Levetiracetam 500 mg 02/21/17 10:00 Keppra PO BID LISA Lorazepam 2 mg 02/21/17 06:48 Ativan IVP Q4 PRN Seizure activity Protocol - Patient Studies Lab Studies: Lab Studies 02/20/17 Range/Units 20:36 Phenytoin < 3 L (10-20) ug/mL Laboratory Results - last 24 hr 02/20/17 20:36 Phenytoin < 3 L Fingerstick Blood Sugar Results: 108 Review of Systems - Review of Systems All systems: reviewed and no additional remarkable complaints except - Constitutional Constitutional: absent: Fever, Chills - EENT Eyes: UNREMARKABLE - Cardiovascular Cardiovascular: UNREMARKABLE - Respiratory Respiratory: UNREMARKABLE - Gastrointestinal Gastrointestinal: UNREMARKABLE - Genitourinary Genitourinary: UNREMARKABLE - Integumentary Integumentary: UNREMARKABLE - Neurological Neurological: UNREMARKABLE - Psychiatric Psychiatric: UNREMARKABLE Critical Care Progress Note - Extremities/Vascular Does the Patient have a Central Venous Catheter?: No Does the Patient need a Central Venous Catheter?: No Does the Patient have a Reilly Catheter?: No Does the Patient need a Reilly Catheter?: No - Prophylaxis GI Prophylaxis GI: PPI - Prophylaxis DVT Prophylaxis DVT: SCDs - Nutrition Nutrition: Nutrition Category Date Time Status Heart Healthy Diet [DIET] Diets 02/21/17 Breakfast Ordered Assessment/Plan - Assessment and Plan (Free Text) Assessment: 36F w/PMH sig for bipolar d/o, seizure d/o, hx ETOH abuse, hx OD, hx Breast & uterine CA admitted to ICU s/p seizures x 3 with prolonged post-ictal state- resolved, AOx3, doing well. Plan: Neuro Seizure d/o AOx3 Depakote Keppra Ativan PRN FU Keppra level FU B1 level Neuro checks Q1H Seizure precautions Neuro following CVS Tachycardia Normotensive Monitor Pulm Stable on RA Nephro D5W@100 Hypokalemia 3.1 Replaced Monitor Other electrolytes WNL Monitor GI HHD Stable Voids freely MSk OOBTC ID Afebrile Leukocytosis of 12.3 from 17.6 FU Blood cx FU Urine Cx FU procalcitonin level U/A neg UDS neg Monitor Psych Hx Bipolar d/o consider re-starting Seroquel GI/DVT ppx SCDs Pepcid Dispo Stable Transfer to remote tele DW attending Alexia, PGY-1 - Date & Time Date: 02/21/17 Time: 06:45
[2017-02-21 07:48] LABS: BASO # 0.03 K/mm3 (0.0-2.0); BASO % 0.2 % (0.0-3.0); EOS # 0.1 (0.0-0.7); EOS % 1.1 % (1.5-5.0); GRAN # 9.41 (1.4-6.5); GRAN % 76.7 % (50.0-68.0); HEMATOCRIT 37.9 % (36.0-48.0); LYMPH # 1.7 (1.2-3.4); LYMPH % 13.5 % (22.0-35.0); MEAN CELL VOLUME 104.7 fl (80.0-105.0); MEAN CORPUSCULAR HEMOGLOBIN 35.1 pg (25.0-35.0); MEAN CORPUSCULAR HGB CONC 33.5 g/dl (31.0-37.0); MEAN PLATELET VOLUME 9.2 fl (7.0-11.0); MONO % 8.5 % (1.0-6.0); RED CELL DISTRIBUTION WIDTH 15.6 % (11.5-14.5); WHITE BLOOD COUNT 12.3 10^3/ul (4.5-11.0)
[2017-02-21 08:25] LABS: BLOOD UREA NITROGEN 10 mg/dL (7-21); CALCIUM 9.4 mg/dL (8.4-10.5); CARBON DIOXIDE 24 mmol/L (21-33); CHLORIDE 105 mmol/L (98-107); GFR AFRICAN-AMERICAN > 60; GLUCOSE,RANDOM 88 mg/dL (70-110); MAGNESIUM 1.7 mg/dL (1.7-2.2); PHOSPHOROUS 4.5 mg/dL (2.5-4.5); POTASSIUM 3.1 mmol/L (3.6-5.0); SODIUM 141 mmol/L (132-148)
[2017-02-21] MEDS: Divalproex 500 mg DR(BID formulation) PO SCH ×2 (09:18→17:07)
--- NOTE | 2017-02-21 09:37 | CP.PCM.PN ---
<TIFFANIE WELSH - Last Filed: 02/21/17 16:06> Subjective - Date & Time of Evaluation Date of Evaluation: 02/21/17 Time of Evaluation: 07:30 - Subjective Subjective: patient was seen and examined at bedside in the ICU. pt states that after her last d/c, the pt went home, felt fine the next day and then the next day had a seizure at night. 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 The patient cannot clearly state what her seizures are like since she doesn't remember them clearly. she denies having any auras pre-seizures and is usually very confused afterward and doesn't recall details. she only remembers being in the ICU this morning at 7am. she denies any ETOH or substance use within this time period and states that she is compliant with her meds. Objective - Vital Signs/Intake and Output Vital Signs (last 24 hours): Temp Pulse Resp BP Pulse Ox 98.9 F 111 H 48 H 134/78 95 02/21/17 04:00 02/21/17 08:27 02/21/17 04:20 02/21/17 04:00 02/21/17 04:20 Intake and Output: 02/21/17 02/21/17 06:59 18:59 Intake Total 1160 Balance 1160 - Medications Medications: Current Medications Divalproex Sodium (Depakote Dr(*Bid*)) 500 mg PO BID LISA PRN Reason: Protocol Last Admin: 02/21/17 09:18 Dose: 500 mg Folic Acid 1 mg/ Thiamine HCl 100 mg/ Multivitamins/Vitamin C 10 ml/ Dextrose 1 ,011.2 mls @ 100 mls/hr IV .Q10H7M [facility] Last Admin: 02/21/17 01:52 Dose: 100 mls/hr Levetiracetam (Keppra) 500 mg PO BID [facility] Last Admin: 02/21/17 09:18 Dose: 500 mg Lorazepam (Ativan) 2 mg IVP Q4 PRN; Protocol PRN Reason: Seizure activity - Labs Labs: 02/21/17 07:30 02/21/17 07:30 - Additional Findings Additional findings: - Constitutional Appears: Well, No Acute Distress - Head Exam Head Exam: ATRAUMATIC, NORMAL INSPECTION, NORMOCEPHALIC Additional comments: no tongue bites or signs of head trauma (bleeding/injury) - Eye Exam Eye Exam: EOMI, Normal appearance, PERRL Pupil Exam: NORMAL ACCOMODATION - ENT Exam ENT Exam: Mucous Membranes Moist, Normal Exam, Normal External Ear Exam - Neck Exam Neck Exam: Full ROM, Normal Inspection. absent: Meningismus - Respiratory Exam Respiratory Exam: Clear to Ausculation Bilateral, NORMAL BREATHING PATTERN. absent: Accessory Muscle Use, Rales, Rhonchi, Wheezes, Respiratory Distress - Cardiovascular Exam Cardiovascular Exam: RRR, +S1, +S2. absent: Gallop, JVD, Rubs - GI/Abdominal Exam GI & Abdominal Exam: Soft, Normal Bowel Sounds. absent: Distended, Tenderness - Extremities Exam Extremities Exam: Normal Inspection. absent: Calf Tenderness, Pedal Edema - Back Exam Back Exam: NORMAL INSPECTION - Neurological Exam Neurological Exam: Alert, Awake, CN II-XII Intact, Oriented x3. absent: Motor Sensory Deficit Neuro motor strength exam: Left Upper Extremity: 5, Right Upper Extremity: 5, Left Lower Extremity: 5, Right Lower Extremity: 5 Additional comments: no facial asymmetry, focal weakness, facial droop, tremors no slurring of speech - Psychiatric Exam Psychiatric exam: Normal Affect, Normal Mood - Skin Skin Exam: Normal Color, Warm Assessment and Plan - Assessment and Plan (Free Text) Assessment: 36 yo F PMH seizure disorder, bipolar dz, recent medical overdose (klonopin), ETOH abuse, asthma and uterine and breast CA (in remission) presented to ED w/ AMS likely 2/2 seizure vs CVA vs infectious vs alcohol/substance/med overdose vs psych causes. Pt is admitted to the ICU for closer monitoring. Plan: 1. AMS, likely 2/2 seizure vs psychosis - CT head showed small right posterior scalp hematoma, no acute intracranial pathology, 2.1x1.6 cm mucosal polyp w/i R maxillary sinus - CXR showed mild L basilar atelectasis - EKG NSR - EEG done last admission and showed no epileptic activity - Neurology consulted, recs appreciated - urine and blood cultures ordered, f/u results - UDS negative - ETOH level <10 - psych consulted for possible psychosis/anxiety - banana bag - seizure precautions 2. Hx seizures - on Keppra - Ativan PRN for seizure activity 3. Hypokalemia - repleted - f/u BMP 4. Hx Bipolar dz - cont Depakote, Seroquel, Lexapro, Klonopin and Seroquel HHD PTX/SCDs Patient was seen, evaluated and discussed with attending, Dr. Buffy Welsh PGY1 <Gabrielle Baer - Last Filed: 02/21/17 18:06> Objective - Vital Signs/Intake and Output Vital Signs (last 24 hours): Temp Pulse Resp BP Pulse Ox 98.6 F 96 H 18 132/85 98 02/21/17 08:00 02/21/17 15:50 02/21/17 15:40 02/21/17 15:00 02/21/17 15:50 Intake and Output: 02/21/17 02/21/17 06:59 18:59 Intake Total 1160 Balance 1160 - Medications Medications: Current Medications Clonazepam (Klonopin) 0.5 mg PO BID LISA PRN Reason: Protocol Last Admin: 02/21/17 15:08 Dose: 0.5 mg Divalproex Sodium (Ines Dr(*Bid*)) 500 mg PO BID LISA PRN Reason: Protocol Last Admin: 02/21/17 17:07 Dose: 500 mg Escitalopram Oxalate (Lexapro) 10 mg PO DAILY [facility] Last Admin: 02/21/17 17:07 Dose: 10 mg Famotidine (Pepcid) 20 mg PO 1000,2200 [facility] Folic Acid 1 mg/ Thiamine HCl 100 mg/ Multivitamins/Vitamin C 10 ml/ Dextrose 1 ,011.2 mls @ 100 mls/hr IV .Q10H7M [facility] Last Admin: 02/21/17 12:51 Dose: 100 mls/hr Ceftriaxone Sodium (Rocephin 1 Gram Ivpb) 1 gm in 100 mls @ 100 mls/hr IVPB DAILY LISA PRN Reason: Protocol Last Admin: 02/21/17 12:23 Dose: Not Given Levetiracetam (Keppra) 500 mg PO BID [facility] Last Admin: 02/21/17 17:07 Dose: 500 mg Lorazepam (Ativan) 2 mg IVP Q4 PRN; Protocol PRN Reason: Seizure activity Quetiapine Fumarate (Seroquel) 50 mg PO HS LISA PRN Reason: Protocol - Labs Labs: 02/21/17 07:30 02/21/17 07:30 Attending/Attestation - Attestation I have personally seen and examined this patient.: Yes I have fully participated in the care of the patient.: Yes I have reviewed all pertinent clinical information, including history, physical exam and plan: Yes Notes (Text): 02/21/17 18:04 attending note; Patient seen and examined with the resident. Patient is a 36-year-old female with a history of seizure disorder,alcohol abuse , bipolar disorder, noncompliance with medication is admitted with generalized tonic-clonic seizure. Patient is currently alert, awake and oriented. No tongue bite/no urinary or bowel incontinence. Continue Keppra and Depakote. Neurology evaluation requested. patient denies alcohol use. continue Ativan when necessary, multivitamin, thiamine, folic acid. Depression; continue Seroquel and Lexapro. Psychiatric evaluation requested. Upon discharge the patient will follow-up with PMD .
[2017-02-21] MEDS ORDERED: Potassium Chloride 40 mEq/30 ml LIQ UD PO ONE (09:46)
[2017-02-21] MEDS ORDERED: Potassium Chloride 20 mEq ER Tab PO STA (12:08)
[2017-02-21] MEDS ORDERED: Magnesium Sulfate 1 gm in D5W 1 GM/100 ML BAG IVPB ONE (12:12)
[2017-02-21] MEDS: cefTRIAXone 1 gm 1 GM/100 ML BAG IVPB SCH (12:23)
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
--- NOTE | 2017-02-22 00:08 | CARD ---
APPROVED REPORT EKG Measurement Heart [id number] <Conclusion> Normal sinus rhythm Normal ECG
[2017-02-22 04:08] VITALS: TEMP 98.1
[2017-02-22 06:06] LABS: BASO # 0.03 K/mm3 (0.0-2.0); BASO % 0.4 % (0.0-3.0); EOS # 0.3 (0.0-0.7); EOS % 3.3 % (1.5-5.0); GRAN # 5.74 (1.4-6.5); GRAN % 69.2 % (50.0-68.0); HEMATOCRIT 36.8 % (36.0-48.0); LYMPH # 1.5 (1.2-3.4); LYMPH % 17.6 % (22.0-35.0); MEAN CELL VOLUME 105.4 fl (80.0-105.0); MEAN CORPUSCULAR HEMOGLOBIN 35.5 pg (25.0-35.0); MEAN CORPUSCULAR HGB CONC 33.7 g/dl (31.0-37.0); MONO # 0.8 (0.1-0.6); MONO % 9.5 % (1.0-6.0); RED CELL DISTRIBUTION WIDTH 15.3 % (11.5-14.5); WHITE BLOOD COUNT 8.3 10^3/ul (4.5-11.0)
[2017-02-22 06:21] LABS: ALB/GLOB RATIO 1.3 (1.1-1.8); ALKALINE PHOSPHATASE 75 U/L (38-126); ALT/SGPT 19 U/L (7-56); AST/SGOT 28 U/L (14-36); BILIRUBIN,TOTAL 0.2 mg/dL (0.2-1.3); BLOOD UREA NITROGEN 6 mg/dL (7-21); CALCIUM 9.4 mg/dL (8.4-10.5); CARBON DIOXIDE 28 mmol/L (21-33); CHLORIDE 102 mmol/L (98-107); GFR AFRICAN-AMERICAN > 60; GLUCOSE,RANDOM 102 mg/dL (70-110); MAGNESIUM 1.8 mg/dL (1.7-2.2); POTASSIUM 4.5 mmol/L (3.6-5.0); SODIUM 138 mmol/L (132-148); TOTAL PROTEIN 6.8 g/dL (5.8-8.3)
[2017-02-22] MEDS: cefTRIAXone 1 gm 1 GM/100 ML BAG IVPB SCH (09:39)
[2017-02-22] MEDS: Divalproex 500 mg DR(BID formulation) PO SCH (09:39)
[2017-02-22 10:22] VITALS: BP 124/73; PULSE 94; RESP 19; O2SAT 99
--- NOTE | 2017-02-22 18:52 | CP.PCM.DIS ---
<Barbara Edwards - Last Filed: 02/22/17 19:47> Provider - Provider Date of Admission: 02/20/17 19:41 Attending physician: Gabrielle Baer MD Primary care physician: James Yoo MD Consults: Dr. Brody larson Time Spent in preparation of Discharge (in minutes): 33 Hospital Course - Lab Results Lab Results: Micro Results 02/21/17 04:00 Naris MRSA Culture (Admit) - Final MRSA NOT DETECTED 02/21/17 01:35 Blood Blood Culture - Preliminary NO GROWTH AFTER 24 HOURS 02/21/17 01:15 Blood Blood Culture - Preliminary NO GROWTH AFTER 24 HOURS Most Recent Lab Values WBC 8.3 10^3/ul (4.5-11.0) D 02/22/17 05:00 RBC 3.49 10^6/uL (3.5-6.1) L 02/22/17 05:00 Hgb 12.4 g/dL (12.0-16.0) 02/22/17 05:00 Hct 36.8 % (36.0-48.0) 02/22/17 05:00 MCV 105.4 fl (80.0-105.0) H 02/22/17 05:00 MCH 35.5 pg (25.0-35.0) H 02/22/17 05:00 MCHC 33.7 g/dl (31.0-37.0) 02/22/17 05:00 RDW 15.3 % (11.5-14.5) H 02/22/17 05:00 Plt Count 343 10^3/uL (120.0-450.0) 02/22/17 05:00 MPV 9.0 fl (7.0-11.0) 02/22/17 05:00 Gran % 69.2 % (50.0-68.0) H 02/22/17 05:00 Lymph % (Auto) 17.6 % (22.0-35.0) L 02/22/17 05:00 [place] % (Auto) 9.5 % (1.0-6.0) H 02/22/17 05:00 Eos % (Auto) 3.3 % (1.5-5.0) 02/22/17 05:00 Baso % (Auto) 0.4 % (0.0-3.0) 02/22/17 05:00 Gran # 5.74 (1.4-6.5) 02/22/17 05:00 Lymph # 1.5 (1.2-3.4) 02/22/17 05:00 [place] # 0.8 (0.1-0.6) H 02/22/17 05:00 Eos # 0.3 (0.0-0.7) 02/22/17 05:00 Baso # 0.03 K/mm3 (0.0-2.0) 02/22/17 05:00 Neutrophils % (Manual) 89 % (50.0-70.0) H 02/20/17 15:20 Band Neutrophils % 3 % (0-2) H 02/20/17 15:20 Lymphocytes % (Manual) 5 % (22.0-35.0) L 02/20/17 15:20 Monocytes % (Manual) 3 % (1.0-6.0) 02/20/17 15:20 Platelet Evaluation Normal (NORMAL) 02/20/17 15:20 pO2 71 mm/Hg (30-55) H 02/20/17 16:05 VBG pH 7.31 (7.32-7.43) L 02/20/17 16:05 VBG pCO2 53.0 (40-60) 02/20/17 16:05 VBG HCO3 26.7 mmol/l (21-28) 02/20/17 16:05 VBG Total CO2 28.3 mmol.L (22-28) H 02/20/17 16:05 VBG O2 Sat (Calc) 94.7 % (40-65) H 02/20/17 16:05 VBG Base Excess -0.4 mmol/L (0.0-2.0) L 02/20/17 16:05 VBG Potassium 8.4 mmol/L (3.6-5.2) H* 02/20/17 16:05 Sodium 134.0 mmol/L (132-148) 02/20/17 16:05 Chloride 106.0 mmol/L (98-107) 02/20/17 16:05 Glucose 100 mg/dl (65-105) 02/20/17 16:05 Lactate 1.7 mmol/L (0.7-2.1) 02/20/17 16:05 FiO2 21.0 % 02/20/17 16:05 Sodium 138 mmol/L (132-148) 02/22/17 05:00 Potassium 4.5 mmol/L (3.6-5.0) 02/22/17 05:00 Chloride 102 mmol/L (98-107) 02/22/17 05:00 Carbon Dioxide 28 mmol/L (21-33) 02/22/17 05:00 Anion Gap 13 (10-20) 02/22/17 05:00 BUN 6 mg/dL (7-21) L 02/22/17 05:00 Creatinine 0.4 mg/dL (0.5-1.4) L 02/22/17 05:00 Est GFR ( Amer) > 60 02/22/17 05:00 Est GFR (Non-Af Amer) > 60 02/22/17 05:00 POC Glucose (mg/dL) 108 mg/dL (65-110) 02/20/17 15:14 Random Glucose 102 mg/dL (70-110) 02/22/17 05:00 Calcium 9.4 mg/dL (8.4-10.5) 02/22/17 05:00 Phosphorus 4.0 mg/dL (2.5-4.5) 02/22/17 05:00 Magnesium 1.8 mg/dL (1.7-2.2) 02/22/17 05:00 Total Bilirubin 0.2 mg/dL (0.2-1.3) 02/22/17 05:00 AST 28 U/L (14-36) 02/22/17 05:00 ALT 19 U/L (7-56) 02/22/17 05:00 Alkaline Phosphatase 75 U/L (38-126) 02/22/17 05:00 Total Creatine Kinase 127 U/L (35-230) 02/20/17 16:50 Total Protein 6.8 g/dL (5.8-8.3) 02/22/17 05:00 Albumin 3.8 g/dL (3.0-4.8) 02/22/17 05:00 Globulin 3.0 gm/dL 02/22/17 05:00 Albumin/Globulin Ratio 1.3 (1.1-1.8) 02/22/17 05:00 Vitamin B12 273 pg/mL (239-931) 02/20/17 16:50 Procalcitonin 0.12 NG/ML (0.19-0.49) L 02/21/17 01:35 Beta HCG, Quant < 2.39 mIU/mL (0-6.15) 02/20/17 15:20 Venous Blood Potassium 8.4 mmol/L (3.6-5.2) H* 02/20/17 16:05 Urine Color Yellow (YELLOW) 02/20/17 18:15 Urine Appearance Clear (CLEAR) 02/20/17 18:15 Urine pH 7.5 (4.7-8.0) 02/20/17 18:15 Ur Specific [place] 1.015 (1.005-1.035) 02/20/17 18:15 Urine Protein Negative mg/dL (<30 mg/dL) 02/20/17 18:15 Urine Glucose (UA) Negative mg/dL (NEGATIVE) 02/20/17 18:15 Urine Ketones Negative mg/dL (NEGATIVE) 02/20/17 18:15 Urine Blood Negative (NEGATIVE) 02/20/17 18:15 Urine Nitrate Negative (NEGATIVE) 02/20/17 18:15 Urine Bilirubin Negative (NEGATIVE) 02/20/17 18:15 Urine Urobilinogen 0.2 E.U./dL (<1 E.U./dL) 02/20/17 18:15 Ur Leukocyte Esterase Negative An/uL (NEGATIVE) 02/20/17 18:15 Salicylates < 1 mg/dL (2.0-20.0) L 02/20/17 15:20 Urine Opiates Screen Negative (NEGATIVE) 02/20/17 18:15 Urine Methadone Screen Negative (NEGATIVE) 02/20/17 18:15 Acetaminophen < 10.0 ug/ml (10.0-20.0) L 02/20/17 15:20 Ur Barbiturates Screen Negative (NEGATIVE) 02/20/17 18:15 Phenytoin < 3 ug/mL (10-20) L 02/20/17 20:36 Ur Phencyclidine Scrn Negative (NEGATIVE) 02/20/17 18:15 Ur Amphetamines Screen Negative (NEGATIVE) 02/20/17 18:15 U Benzodiazepines Scrn Negative (NEGATIVE) 02/20/17 18:15 U Oth Cocaine Metabols Negative (NEGATIVE) 02/20/17 18:15 U Cannabinoids Screen Negative (NEGATIVE) 02/20/17 18:15 Alcohol, Quantitative < 10 mg/dL (0-10) 02/20/17 15:20 - Hospital Course Hospital Course: Patient is a 36-year-old female with a history of seizure disorder,alcohol abuse , bipolar disorder, noncompliance withmedication is admitted with generalized tonic-clonic seizure. Patient is currently alert, awake and oriented. No tongue bite/no urinary or bowel incontinence. Neurology evaluation requested. EEG negative for epileptiform pattern. CT head showed a posterior scalp hematoma, otherwise no acute findings. Psychiatric evaluation requested. Patient was discharged with the below written instructions and prescriptions - Date & Time of H&P Date of H&P: 02/22/17 Time of H&P: 13:00 Discharge Exam - Head Exam Head Exam: ATRAUMATIC, NORMAL INSPECTION, NORMOCEPHALIC - Eye Exam Eye Exam: EOMI, Normal appearance - ENT Exam ENT Exam: Mucous Membranes Moist, Normal Oropharynx - Neck Exam Neck exam: Normal Inspection - Respiratory Exam Respiratory Exam: Clear to PA & Lateral, NORMAL BREATHING PATTERN - Cardiovascular Exam Cardiovascular Exam: RRR, +S1, +S2 - Back Exam Back exam: NORMAL INSPECTION. absent: CVA tenderness (L), CVA tenderness (R) - Neurological Exam Neurological exam: Alert, CN II-XII Intact, Oriented x3 - Psychiatric Exam Psychiatric exam: Normal Affect, Normal Mood - Skin Skin Exam: Dry, Intact, Normal Color, Warm Discharge Plan - Discharge Medications Prescriptions: Escitalopram [Lexapro] 10 mg PO DAILY #10 tab Folic Acid 1 mg PO DAILY #10 tab Multimineral/Multivitamin [Therapeutic-M Tab] 1 tab PO 0800 #10 tab QUEtiapine [Seroquel] 50 mg PO HS #10 tab Thiamine [Vitamin B1 Tab] 100 mg PO DAILY #10 tab - Follow Up Plan Condition: CRITICAL Disposition: HOME/ ROUTINE Instructions: Generalized Anxiety Disorder (GEN), Epilepsy (GEN) Additional Instructions: 1. Follow up with PMD Dr. Cooper in 3 days. 2. Follow up with Dr. Lei murguia in 1 week. 3. Stop alcohol abuse. 4. Follow up with Psychiatrist closely. Referrals: Oliver Cooper MD [Staff Provider] - James Yoo MD [Primary Care Provider] - Brody Murguia MD [Staff Provider] - <Gabrielle Baer - Last Filed: 02/23/17 10:29> Provider - Provider Date of Admission: 02/20/17 19:41 Attending physician: Gabrielle Baer MD Primary care physician: James Yoo MD Hospital Course - Lab Results Lab Results: Micro Results 02/21/17 01:35 Blood Blood Culture - Preliminary NO GROWTH AFTER 48 HOURS 02/21/17 01:15 Blood Blood Culture - Preliminary NO GROWTH AFTER 48 HOURS 02/21/17 04:00 Naris MRSA Culture (Admit) - Final MRSA NOT DETECTED Most Recent Lab Values WBC 8.3 10^3/ul (4.5-11.0) D 02/22/17 05:00 RBC 3.49 10^6/uL (3.5-6.1) L 02/22/17 05:00 Hgb 12.4 g/dL (12.0-16.0) 02/22/17 05:00 Hct 36.8 % (36.0-48.0) 02/22/17 05:00 MCV 105.4 fl (80.0-105.0) H 02/22/17 05:00 MCH 35.5 pg (25.0-35.0) H 02/22/17 05:00 MCHC 33.7 g/dl (31.0-37.0) 02/22/17 05:00 RDW 15.3 % (11.5-14.5) H 02/22/17 05:00 Plt Count 343 10^3/uL (120.0-450.0) 02/22/17 05:00 MPV 9.0 fl (7.0-11.0) 02/22/17 05:00 Gran % 69.2 % (50.0-68.0) H 02/22/17 05:00 Lymph % (Auto) 17.6 % (22.0-35.0) L 02/22/17 05:00 [place] % (Auto) 9.5 % (1.0-6.0) H 02/22/17 05:00 Eos % (Auto) 3.3 % (1.5-5.0) 02/22/17 05:00 Baso % (Auto) 0.4 % (0.0-3.0) 02/22/17 05:00 Gran # 5.74 (1.4-6.5) 02/22/17 05:00 Lymph # 1.5 (1.2-3.4) 02/22/17 05:00 [place] # 0.8 (0.1-0.6) H 02/22/17 05:00 Eos # 0.3 (0.0-0.7) 02/22/17 05:00 Baso # 0.03 K/mm3 (0.0-2.0) 02/22/17 05:00 Neutrophils % (Manual) 89 % (50.0-70.0) H 02/20/17 15:20 Band Neutrophils % 3 % (0-2) H 02/20/17 15:20 Lymphocytes % (Manual) 5 % (22.0-35.0) L 02/20/17 15:20 Monocytes % (Manual) 3 % (1.0-6.0) 02/20/17 15:20 Platelet Evaluation Normal (NORMAL) 02/20/17 15:20 pO2 71 mm/Hg (30-55) H 02/20/17 16:05 VBG pH 7.31 (7.32-7.43) L 02/20/17 16:05 VBG pCO2 53.0 (40-60) 02/20/17 16:05 VBG HCO3 26.7 mmol/l (21-28) 02/20/17 16:05 VBG Total CO2 28.3 mmol.L (22-28) H 02/20/17 16:05 VBG O2 Sat (Calc) 94.7 % (40-65) H 02/20/17 16:05 VBG Base Excess -0.4 mmol/L (0.0-2.0) L 02/20/17 16:05 VBG Potassium 8.4 mmol/L (3.6-5.2) H* 02/20/17 16:05 Sodium 134.0 mmol/L (132-148) 02/20/17 16:05 Chloride 106.0 mmol/L (98-107) 02/20/17 16:05 Glucose 100 mg/dl (65-105) 02/20/17 16:05 Lactate 1.7 mmol/L (0.7-2.1) 02/20/17 16:05 FiO2 21.0 % 02/20/17 16:05 Sodium 138 mmol/L (132-148) 02/22/17 05:00 Potassium 4.5 mmol/L (3.6-5.0) 02/22/17 05:00 Chloride 102 mmol/L (98-107) 02/22/17 05:00 Carbon Dioxide 28 mmol/L (21-33) 02/22/17 05:00 Anion Gap 13 (10-20) 02/22/17 05:00 BUN 6 mg/dL (7-21) L 02/22/17 05:00 Creatinine 0.4 mg/dL (0.5-1.4) L 02/22/17 05:00 Est GFR ( Amer) > 60 02/22/17 05:00 Est GFR (Non-Af Amer) > 60 02/22/17 05:00 POC Glucose (mg/dL) 108 mg/dL (65-110) 02/20/17 15:14 Random Glucose 102 mg/dL (70-110) 02/22/17 05:00 Calcium 9.4 mg/dL (8.4-10.5) 02/22/17 05:00 Phosphorus 4.0 mg/dL (2.5-4.5) 02/22/17 05:00 Magnesium 1.8 mg/dL (1.7-2.2) 02/22/17 05:00 Total Bilirubin 0.2 mg/dL (0.2-1.3) 02/22/17 05:00 AST 28 U/L (14-36) 02/22/17 05:00 ALT 19 U/L (7-56) 02/22/17 05:00 Alkaline Phosphatase 75 U/L (38-126) 02/22/17 05:00 Total Creatine Kinase 127 U/L (35-230) 02/20/17 16:50 Total Protein 6.8 g/dL (5.8-8.3) 02/22/17 05:00 Albumin 3.8 g/dL (3.0-4.8) 02/22/17 05:00 Globulin 3.0 gm/dL 02/22/17 05:00 Albumin/Globulin Ratio 1.3 (1.1-1.8) 02/22/17 05:00 Vitamin B12 273 pg/mL (239-931) 02/20/17 16:50 Procalcitonin 0.12 NG/ML (0.19-0.49) L 02/21/17 01:35 Beta HCG, Quant < 2.39 mIU/mL (0-6.15) 02/20/17 15:20 Venous Blood Potassium 8.4 mmol/L (3.6-5.2) H* 02/20/17 16:05 Urine Color Yellow (YELLOW) 02/20/17 18:15 Urine Appearance Clear (CLEAR) 02/20/17 18:15 Urine pH 7.5 (4.7-8.0) 02/20/17 18:15 Ur Specific [place] 1.015 (1.005-1.035) 02/20/17 18:15 Urine Protein Negative mg/dL (<30 mg/dL) 02/20/17 18:15 Urine Glucose (UA) Negative mg/dL (NEGATIVE) 02/20/17 18:15 Urine Ketones Negative mg/dL (NEGATIVE) 02/20/17 18:15 Urine Blood Negative (NEGATIVE) 02/20/17 18:15 Urine Nitrate Negative (NEGATIVE) 02/20/17 18:15 Urine Bilirubin Negative (NEGATIVE) 02/20/17 18:15 Urine Urobilinogen 0.2 E.U./dL (<1 E.U./dL) 02/20/17 18:15 Ur Leukocyte Esterase Negative An/uL (NEGATIVE) 02/20/17 18:15 Salicylates < 1 mg/dL (2.0-20.0) L 02/20/17 15:20 Urine Opiates Screen Negative (NEGATIVE) 02/20/17 18:15 Urine Methadone Screen Negative (NEGATIVE) 02/20/17 18:15 Acetaminophen < 10.0 ug/ml (10.0-20.0) L 02/20/17 15:20 Ur Barbiturates Screen Negative (NEGATIVE) 02/20/17 18:15 Phenytoin < 3 ug/mL (10-20) L 02/20/17 20:36 Ur Phencyclidine Scrn Negative (NEGATIVE) 02/20/17 18:15 Ur Amphetamines Screen Negative (NEGATIVE) 02/20/17 18:15 U Benzodiazepines Scrn Negative (NEGATIVE) 02/20/17 18:15 U Oth Cocaine Metabols Negative (NEGATIVE) 02/20/17 18:15 U Cannabinoids Screen Negative (NEGATIVE) 02/20/17 18:15 Alcohol, Quantitative < 10 mg/dL (0-10) 02/20/17 15:20 Attending/Attestation - Attestation I have personally seen and examined this patient.: Yes I have fully participated in the care of the patient.: Yes I have reviewed all pertinent clinical information, including history, physical exam and plan: Yes Notes (Text): 02/23/17 10:27 attending note; Patient seen and examined with the resident. Patient is a 36-year-old female with a history of seizure disorder,alcohol abuse , bipolar disorder, noncompliance with medication is admitted with generalized tonic-clonic seizure. Patient is currently alert, awake and oriented. No tongue bite/no urinary or bowel incontinence. Continue Keppra and Depakote. Neurology evaluation appreciated. Case discussed with neurologist in detail. Patient can be discharged home by mouth Keppra and Depakote. Needs outpatient follow-up in 1 week. The patient does not drive. complete alcohol cessation is strongly advised. continue multivitamin, thiamine , folic acid. Depression; continue Seroquel and Lexapro. patient follows up with . Upon discharge the patient will follow-up with PMD . diagnosis; Seizure disorder Alcohol abuse Bipolar disorder Medication noncompliance
[2017-02-23] MEDS ORDERED: Multivitamin With Minerals Tab PO SCH (08:00)
--- NOTE | 2017-02-24 08:14 | EEG ---
DATE: 02/21/2017 CONDITION OF THE RECORDING: Drowsy EEG. DIAGNOSIS: Seizure. MEDICATIONS: Keppra and Depakote. INTERPRETATION: This is a 16-channel international recording. Background activity was composed of 6 to 7 cycles per second. There was a small amount of beta activity of 16 to 20 cycles per second seen in this recording. There was increased amount of theta activity of 5 to 7 cycles per second seen in this tracing. Drowsiness was characterized by mixed beta and theta activities. Sleep was characterized by vertex transient waves, sleep spindles, and bilateral slowing. Photic stimulation showed no change in the tracing. Paroxysmal activity was noted in the bilateral frontal and temporal regions, mostly in the frontal area with diffuse frontal slowing. CONCLUSION: Abnormal EEG due to presence of isolated sharp waves followed by slowing waves in the bilateral frontal areas consistent with possibly underlying seizure history. At this time, there is also evidence of mild bilateral cerebral dysfunction. Please clinically correlate. Brody Massey MD
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
== END 2017-02-22 16:50 | disposition home or self-care (01) | DRG 889 ==
LOC: ED 15:06 → ERH 19:41 → CCU 23:51
PROVIDERS: ADMIT Internal Medicine; ATTEND Internal Medicine
DX: G40.409 Other generalized epilepsy and epileptic syndromes, not intractable, without status epilepticus (principal); J98.11 Atelectasis; F22 Delusional disorders; E87.6 Hypokalemia; E03.9 Hypothyroidism, unspecified; F10.10 Alcohol abuse, uncomplicated; S00.03XA Contusion of scalp, initial encounter; F17.200 Nicotine dependence, unspecified, uncomplicated; F31.9 Bipolar disorder, unspecified; F41.9 Anxiety disorder, unspecified; F60.3 Borderline personality disorder; J45.909 Unspecified asthma, uncomplicated; Z85.3 Personal history of malignant neoplasm of breast; Z85.42 Personal history of malignant neoplasm of other parts of uterus; Z90.49 Acquired absence of other specified parts of digestive tract; Z91.14 Patient's other noncompliance with medication regimen; Z79.899 Other long term (current) drug therapy; Z80.9 Family history of malignant neoplasm, unspecified; R00.0 Tachycardia, unspecified; R40.2412 Glasgow coma scale score 13-15, at arrival to emergency department

== ENCOUNTER 2017-02-25 20:51 | Emergency (ER) | payer MEDICAID ==
[2017-02-25 20:52] VITALS: BMI 19.9
[2017-02-25 21:23] VITALS: TEMP 99; O2SAT 100
[2017-02-25 23:23] LABS: ALB/GLOB RATIO 1.4 (1.1-1.8); ALKALINE PHOSPHATASE 99 U/L (38-126); ALT/SGPT 20 U/L (7-56); AST/SGOT 34 U/L (14-36); BILIRUBIN,TOTAL 0.3 mg/dL (0.2-1.3); BLOOD UREA NITROGEN 21 mg/dL (7-21); CALCIUM 9.4 mg/dL (8.4-10.5); CARBON DIOXIDE 27 mmol/L (21-33); CHLORIDE 95 mmol/L (98-107); GFR AFRICAN-AMERICAN > 60; GLUCOSE,RANDOM 93 mg/dL (70-110); SODIUM 136 mmol/L (132-148); TOTAL PROTEIN 7.6 g/dL (5.8-8.3)
[2017-02-25 23:37] LABS: BASO # 0.09 K/mm3 (0.0-2.0); BASO % 0.9 % (0.0-3.0); EOS # 0.2 (0.0-0.7); EOS % 1.6 % (1.5-5.0); GRAN # 6.66 (1.4-6.5); GRAN % 64.2 % (50.0-68.0); HEMATOCRIT 35.8 % (36.0-48.0); LYMPH # 2.5 (1.2-3.4); LYMPH % 23.8 % (22.0-35.0); MEAN CELL VOLUME 104.1 fl (80.0-105.0); MEAN CORPUSCULAR HGB CONC 34.6 g/dl (31.0-37.0); MEAN PLATELET VOLUME 9.2 fl (7.0-11.0); MONO % 9.5 % (1.0-6.0); RED CELL DISTRIBUTION WIDTH 15.6 % (11.5-14.5); WHITE BLOOD COUNT 10.4 10^3/ul (4.5-11.0)
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
[2017-02-25 23:38] LABS: INR 1.03 (0.93-1.08); PARTIAL THROMBOPLASTIN TIME 30.8 Seconds (23.7-30.8)
[2017-02-25] MEDS ORDERED: Potassium Chloride 20 mEq/15 ml LIQ UD PO STA (23:43)
[2017-02-25 23:56] LABS: URINE BILIRUBIN NEGATIVE (NEGATIVE); URINE BLOOD NEGATIVE (NEGATIVE); URINE GLUCOSE (UA) NEGATIVE (NEGATIVE); URINE KETONE NEGATIVE (NEGATIVE); URINE LEUKOCYTE ESTERASE NEGATIVE Leu/uL (NEGATIVE); URINE PROTEIN NEGATIVE mg/dL (<30 mg/dL); URINE UROBILINOGEN 0.2 E.U./dL (<1 E.U./dL)
[2017-02-25 23:57] VITALS: RESP 18
[2017-02-25 23:58] LABS: URINE APPEARANCE CLEAR (CLEAR); URINE COLOR STRAW (YELLOW)
[2017-02-26 01:20] VITALS: BP 124/78; PULSE 87
== END 2017-02-26 01:28 | disposition home or self-care (01) ==
LOC: ED 20:51
DX: R23.3 Spontaneous ecchymoses (principal)

== ENCOUNTER 2017-11-14 18:55 | Inpatient (IN) | payer MEDICAID ==
[2017-11-14 18:55] VITALS: BMI 18.3
[2017-11-14] MEDS ORDERED: Sodium Chloride 0.9% 1,000 ML IV STA ×3 (20:02→22:49)
--- NOTE | 2017-11-14 20:10 | ED PDOC ---
Arrival/HPI - General Chief Complaint: GI Problem Time Seen by Provider: 11/14/17 19:56 - History of Present Illness Narrative History of Present Illness (Text): Patient is a 36 year old female with a past medical history of seizure disorders, major depression, schizophrenia, alcohol abuse, cervical, uterine, breast cancer s/p surgery, gallstones, gallstone induced pancreatitis who presents to the emergency room for evaluation and treatment of abdominal pain, nausea, vomiting which began 1 week ago with no specific provoking event. States the pain originates in the RUQ and radiates to the RLQ. It is characterized as being sharp in nature and is rated a 10/10. No association with PO intake. Also states she experience 20-30 bouts of nonbloody, nonbilious emesis daily. Denies fever, chills, chest pain, SOB, diarrhea, constipation, and urinary symptoms. Past Medical History - Provider Review Nursing Documentation Reviewed: Yes - Infectious Disease Hx of Infectious Diseases: None - Tetanus Immunization Tetanus Immunization: Unknown - Cardiac Hx Cardiac Disorders: No Hx Hypertension: No - Pulmonary Hx Asthma: Yes - Neurological Hx Seizures: Yes (last seizure was 2013-jun) Other/Comment: pt stated she had last seizure 01/2017 was in [facility] - HEENT Hx HEENT Disorder: No - Renal Hx Renal Disorder: No - Endocrine/Metabolic Hx Systemic Lupus Erythematosus: Yes - Hematological/Oncological Hx Blood Transfusions: No Hx Blood Transfusion Reaction: No - Integumentary Hx Dermatological Disorder: No - Musculoskeletal/Rheumatological Hx Musculoskeletal Disorders: Yes Hx Falls: Yes (seizure) - Gastrointestinal Hx Gastritis: Yes - Genitourinary/Gynecological Hx Genitourinary Disorders: Yes Hx Cervical Cancer: Yes Hx Uterine Cancer: Yes Other/Comment: double mastecomy - Psychiatric Hx Psychophysiologic Disorder: Yes Hx Bipolar Disorder: Yes Hx Depression: Yes (major depression recurrent) Hx Substance Use: Yes - Surgical History Other/Comment: double mastectomy. tumor from uterus & ovaries - Anesthesia Hx Anesthesia: Yes Hx Anesthesia Reactions: No Hx Malignant Hyperthermia: No Family/Social History - Physician Review Nursing Documentation Reviewed: Yes Family/Social History: Other (cancer) Smoking Status: Light Smoker < 10 Cigarettes Daily Hx Alcohol Use: Yes Hx Substance Use: Yes Allergies/Home Meds Allergies/Adverse Reactions: Allergies No Known Allergies Allergy (Verified 04/05/17 19:06) Review of Systems - Physician Review All systems were reviewed & negative as marked: Yes - Review of Systems Constitutional: Normal Eyes: Normal ENT: Normal Respiratory: Normal Cardiovascular: Normal Gastrointestinal: Abdominal Pain, Nausea, Vomiting Musculoskeletal: Normal Skin: Normal Neurological: Normal, Dizziness Endocrine: Normal Hemo/Lymphatic: Normal Psychiatric: Normal Physical Exam Vital Signs Temp Pulse Resp BP Pulse Ox 11/14/17 19:35 97.9 F 123 H 18 110/85 96 Temperature: Afebrile Blood Pressure: Normal Pulse: Tachycardic Respiratory Rate: Normal Appearance: Positive for: Well-Appearing, Non-Toxic, Comfortable Pain Distress: None Mental Status: Positive for: Alert and Oriented X 3 - Systems Exam Head: Present: Atraumatic, Normocephalic Pupils: Present: PERRL Extroacular Muscles: Present: EOMI Conjunctiva: Present: Normal Mouth: Present: Dry Nose (External): Present: Atraumatic Respiratory/Chest: Present: Clear to Auscultation, Good Air Exchange. No: Respiratory Distress, Accessory Muscle Use Cardiovascular: Present: Normal S1, S2, Tachycardic Abdomen: Present: Tenderness, Guarding, Other. No: McBurney's Point Tender ( positive felix's sign) Upper Extremity: Present: Normal Inspection Lower Extremity: Present: Normal Inspection Neurological: Present: GCS=15, CN II-XII Intact, Speech Normal Skin: Present: Warm, Dry Psychiatric: Present: Alert, Oriented x 3, Normal Insight, Normal Concentration Medical Decision Making ED Course and Treatment: Assessment and Plan: Patient is a 36 year old female with a past medical history of seizure disorders, major depression, schizophrenia, alcohol abuse, cervical, uterine, breast cancer s/p surgery, gallstones, gallstone induced pancreatitis who presents to the emergency room for evaluation and treatment of abdominal pain, nausea, vomiting. Abdominal Pain Nausea, Vomiting 11/14/17 20:31 - CBC, CMP, Mag, Phos - IVF NS 1 liter bolus - zofran - toradol - gallbladder us - CT of abdomen pelvis with IV contrast 11/14/17 22:55 - informed potassium is 1.8 - KCl 40 PO - KCl 20 IV x 2 riders - EKG reviewed- ST T waves changes appreciated- calcium gluconate ordered - spoke with ICU attending regarding patient case- informed to give 2 additional 1 liter boluses of normal saline- will come to evaluate patient - patient case endorsed to medicine resident 11/14/17 23:16 - ICU attending accepted patient- dispo to telemetry 11/14/17 23:25 - admit order placed - Lab Interpretations Lab Results: 11/14/17 21:18 11/14/17 21:18 Lab Results 11/14/17 22:11: Lactate Dehydrogenase 603, Total Creatine Kinase 48, Troponin I 0.03 D 11/14/17 21:50: Lipase 171 11/14/17 21:18: Sodium 130 L, Potassium 1.8 L* D, Chloride 81 L D, Carbon Dioxide 36 H, Anion Gap 15, BUN 10, Creatinine 0.5 L, Est GFR ( Amer) > 60, Est GFR (Non-Af Amer) > 60, Random Glucose 112 H, Calcium 9.3, Phosphorus 2.9, Magnesium 1.6 L, Total Bilirubin 1.1, AST 68 H D, ALT 42, Alkaline Phosphatase 137 H D, Total Protein 7.4, Albumin 4.1, Globulin 3.3, Albumin/ Globulin Ratio 1.2 11/14/17 21:18: WBC 11.4 H D, RBC 4.54, Hgb 16.4 H D, Hct 44.3, MCV 97.6 D, MCH 36.1 H, MCHC 37.0, RDW 14.8 H, Plt Count 378, MPV 9.3, Gran % 81.2 H, Lymph % (Auto) 8.7 L, White % (Auto) 9.6 H, Eos % (Auto) 0.2 L, Baso % (Auto) 0.3, Gran # 9.29 H, Lymph # (Auto) 1.0 L, White # (Auto) 1.1 H, Eos # (Auto) 0.0, Baso # (Auto) 0.03 I have reviewed the lab results: Yes - RAD Interpretation Narrative RAD Interpretations (Text): 11/14/17 22:19 US Abdomen Limited, Right Upper Quadrant CLINICAL HISTORY: 36 years old, female; Pain; Abdominal pain; Other: Right upper quadrant; Additional info: Right upper quadrant abdominal pain TECHNIQUE: Real-time ultrasound of the right upper quadrant with image documentation. COMPARISON: US - ABDOMEN COMPLETE 2017-04-07 08:46 FINDINGS: Liver: Hepatomegaly the liver span is 17 cm. Diffuse increased echogenicity is seen consistent with steatosis. No mass. No intrahepatic bile duct dilation. Gallbladder: A large collection of sludge is seen within the gallbladder. Common bile duct: Unremarkable as visualized. No stones. 4.8 mm Pancreas: Unremarkable as visualized. Right kidney: Unremarkable. No stones. No solid mass. No hydronephrosis. RIGHT kidney measures some flow 12.5 cm x 4.7 cm x 6.2 cm. Other findings: IMPRESSION: 1. Hepatomegaly and hepatic steatosis. 2. A large collection of sludge in the gallbladder. 3. Otherwise negative examination Radiology Orders: 11/14/17 20:07 GALLBLADDER & COMMON DUCT [US] Stat 11/14/17 20:11 ABD & PELVIS IV CONTRAST ONLY [CT] Stat - EKG Interpretation EKG Interpretation (Text): NSR HR 84bpm Qtc 465 ST T wave abnormalities in II, V4-V6, u waves present 11/14/17 22:53 11/14/17 22:59 Interpreted by ED Physician: Yes Type: 12 lead EKG Comparison: Different from prev. EKG - Medication Orders Current Medication Orders: Potassium Chloride (Potassium Chloride 20 Meq/100 Ml) 20 meq in 100 mls @ 50 mls/hr IVPB Q2H LISA Stop: 11/15/17 02:14 Last Admin: 11/14/17 22:25 Dose: 50 mls/hr eMAR Start Stop Document 11/14/17 22:25 MS (Rec: 11/14/17 22:25 [place] [email or web address] Intravenous Solution Start Date 11/14/17 Start Time 22:25 End Date 11/15/17 End time 00:25 Total Infusion Time 120 Sodium Chloride (Sodium Chloride 0.9%) 1,000 mls @ 999 mls/hr IV .Q1H1M STA Stop: 11/14/17 23:48 Sodium Chloride (Sodium Chloride 0.9%) 1,000 mls @ 999 mls/hr IV .Q1H1M STA Stop: 11/14/17 23:49 Levetiracetam 500 mg/ Sodium (Chloride) 105 mls @ 460 mls/hr IV STAT STA Stop: 11/14/17 23:27 Discontinued Medications Calcium Gluconate (Calcium Gluconate Iv) 1,000 mg IVP ONCE ONE Stop: 11/14/17 22:33 Sodium Chloride (Sodium Chloride 0.9%) 1,000 mls @ 999 mls/hr IV .Q1H1M STA Stop: 11/14/17 21:02 Last Admin: 11/14/17 21:26 Dose: 999 mls/hr eMAR Start Stop Document 11/14/17 21:26 MS (Rec: 11/14/17 21:[address] [email or web address] Intravenous Solution Start Date 11/14/17 Start Time 21:27 End Date 11/14/17 End time 22:27 Total Infusion Time 60 Magnesium Sulfate (Magnesium Sulfate 2 Gm/50 Ml Water) 2 gm in 50 mls @ 102 mls /hr IVPB ONCE ONE Stop: 11/14/17 23:11 Ketorolac Tromethamine (Toradol) 15 mg IVP STAT STA Stop: 11/14/17 20:19 Last Admin: 11/14/17 21:26 Dose: 15 mg MAR Pain Assessment Document 11/14/17 21:26 MS (Rec: 11/14/17 21:[address] [email or web address] Pain Reassessment Is this a pain reassessment? No Sleep Is patient sleeping during reassessment? No Presence of Pain Presence of Pain Yes Pain Scale Used Pain Scale Used Numeric Location Pain Location Body Site Abdomen Description Description Constant Intensity of Pain at present 9 Pain Behavior Irritability IVP Administration Document 11/14/17 21:26 MS (Rec: 11/14/17 21:[address] [email or web address] Charges for Administration # of IVP Administrations 1 Ondansetron HCl (Zofran Inj) 4 mg IVP ONCE ONE Stop: 11/14/17 20:03 Last Admin: 11/14/17 21:26 Dose: 4 mg IVP Administration Document 11/14/17 21:26 MS (Rec: 11/14/17 21:[address] [email or web address] Charges for Administration # of IVP Administrations 1 Potassium Chloride (Potassium Chloride Oral Soln) 40 meq PO ONCE ONE Stop: 11/14/17 22:11 Last Admin: 11/14/17 22:25 Dose: 40 meq Disposition/Present on Arrival - Present on Arrival Any Indicators Present on Arrival: No History of DVT/PE: No History of Uncontrolled Diabetes: No Urinary Catheter: No History of Decub. Ulcer: No History Surgical Site Infection Following: None - Disposition Have Diagnosis and Disposition been Completed?: Yes Diagnosis: Hypokalemia Disposition: HOSPITALIZED Disposition Time: 23:26 Condition: FAIR Referrals: Oliver Cooper MD [Primary Care Provider] - Follow up with primary Forms: [employer] (Turkish)
[2017-11-14 21:47] LABS: BASO # 0.03 K/mm3 (0.0-2.0); BASO % 0.3 % (0.0-3.0); EOS % 0.2 % (1.5-5.0); GRAN # 9.29 (1.4-6.5); GRAN % 81.2 % (50.0-68.0); HEMOGLOBIN 16.4 g/dL (12.0-16.0); LYMPH % 8.7 % (22.0-35.0); MEAN CELL VOLUME 97.6 fl (80.0-105.0); MEAN CORPUSCULAR HEMOGLOBIN 36.1 pg (25.0-35.0); MEAN PLATELET VOLUME 9.3 fl (7.0-11.0); MONO # 1.1 (0.1-0.6); MONO % 9.6 % (1.0-6.0); RBC 4.54 10^6/uL (3.5-6.1); RED CELL DISTRIBUTION WIDTH 14.8 % (11.5-14.5); WHITE BLOOD COUNT 11.4 10^3/ul (4.5-11.0)
[2017-11-14 22:06] LABS: ALB/GLOB RATIO 1.2 (1.1-1.8); ALBUMIN 4.1 g/dL (3.0-4.8); ALT/SGPT 42 U/L (7-56); AST/SGOT 68 U/L (14-36); BLOOD UREA NITROGEN 10 mg/dL (7-21); CALCIUM 9.3 mg/dL (8.4-10.5); GFR AFRICAN-AMERICAN > 60; GFR NON-AFRICAN AMERICAN > 60
[2017-11-14] MEDS ORDERED: Potassium Chloride 40 mEq/30 ml LIQ UD PO ONE (22:10)
[2017-11-14] MEDS ORDERED: Iohexol 350 MG/100 ML VIAL ONE (22:16)
[2017-11-14] MEDS ORDERED: Magnesium Sulfate 2 gm/50 ml 2 GM/50 ML BAG IVPB ONE (22:42)
[2017-11-14 23:00] LABS: TROPONIN I 0.03 ng/mL
[2017-11-14] MEDS ORDERED: levETIRAcetam 500mg IVPB 500 MG/100 ML BAG IV STA (23:14)
--- NOTE | 2017-11-14 23:35 | CP.PCM.HP ---
<Kalia Burks - Last Filed: 11/15/17 00:50> History of Present Illness - History of Present Illness History of Present Illness: PGY-1 H&P for Dr. Moncada This is a 36 year old female with PMHx gallstone pancreatitis, seizure disorder , breast cancer s/p mastectomy, ovarian cancer s/p tumor resection x2, uterine cancer who presents complaining of intractable nausea and vomiting as well as abdominal pain. Patient states that the nausea/vomiting began 6 days ago, and she is unable to keep down food or medication. She is able to hold down water if she takes very small sips. The vomitus is green-yellow in color without any blood. Patient states that the abdominal pain started about 2 days ago. It is a sharp 10/10 pain that begins in the periumbilical region and radiates to the right upper quadrant. Pain is intermittent without any exacerbating or relieving factors. Patient states that her last BM was 8 days ago as she has not eaten for about a week. PMHx: gallstone pancreatitis, seizure disorder, breast cancer s/p mastectomy, ovarian cancer s/p tumor resection x2, uterine cancer PSHx: Bilateral mastectomy, ovarian tumor resection x2 Allergies: NKDA Social: Current smoker half ppd since age 17 but has cut down to 1 cigarette per day after her nausea/vomiting started. Former social drinker per patient. Denies drug use. Not currently working Family Hx: Mother at age 63 and had lupus, CREST syndrome, and breast cancer PMD: Dr. Cooper Home meds: Takes Keppra 500 BID and Depakote 750 BID but does not remember the rest. Her primary pharmacy [facility] in [place], and she also goes to the [facility] pharmacy. Present on Admission - Present on Admission Any Indicators Present on Admission: No Review of Systems - Constitutional Constitutional: absent: Chills, Fever - EENT Eyes: absent: Change in Vision Ears: absent: Decreased Hearing Nose/Mouth/Throat: absent: Nasal Congestion - Cardiovascular Cardiovascular: absent: Chest Pain - Respiratory Respiratory: absent: Dyspnea - Gastrointestinal Gastrointestinal: Abdominal Pain, Nausea, Vomiting. absent: Diarrhea, Hematemesis - Genitourinary Genitourinary: absent: Dysuria - Musculoskeletal Musculoskeletal: absent: Back Pain - Integumentary Integumentary: absent: Rash - Psychiatric Psychiatric: Change in Appetite (decreased) - Endocrine Endocrine: absent: Palpitations Past Patient History - Infectious Disease Hx of Infectious Diseases: None - Tetanus Immunizations Tetanus Immunization: Unknown - Past Medical History & Family History Past Medical History?: Yes - Past Social History Smoking Status: Light Smoker < 10 Cigarettes Daily - CARDIAC Hx Cardiac Disorders: No Hx Hypertension: No - PULMONARY Hx Asthma: Yes - NEUROLOGICAL Hx Seizures: Yes (last seizure was 2013-jun) Other/Comment: pt stated she had last seizure 01/2017 was in [facility] - HEENT Hx HEENT Problems: No - RENAL Hx Chronic Kidney Disease: No - ENDOCRINE/METABOLIC Hx Systemic Lupus Erythematosus: Yes - HEMATOLOGICAL/ONCOLOGICAL Hx Blood Transfusions: No Hx Blood Transfusion Reaction: No - INTEGUMENTARY Hx Dermatological Problems: No - MUSCULOSKELETAL/RHEUMATOLOGICAL Hx Musculoskeletal Disorders: Yes Hx Falls: Yes (seizure) - GASTROINTESTINAL Hx Gastritis: Yes - GENITOURINARY/GYNECOLOGICAL Hx Genitourinary Disorders: Yes Hx Cervical Cancer: Yes Hx Uterine Cancer: Yes Other/Comment: double mastecomy - PSYCHIATRIC Hx Psychophysiologic Disorder: Yes Hx Bipolar Disorder: Yes Hx Depression: Yes (major depression recurrent) Hx Substance Use: Yes - SURGICAL HISTORY Other/Comment: double mastectomy. tumor from uterus & ovaries - ANESTHESIA Hx Anesthesia: Yes Hx Anesthesia Reactions: No Hx Malignant Hyperthermia: No Meds Allergies/Adverse Reactions: Allergies Allergy/AdvReac Type Severity Reaction Status Date / Time No Known Allergies Allergy Verified 04/05/17 19:06 Physical Exam - Constitutional Appears: No Acute Distress - Head Exam Head Exam: ATRAUMATIC, NORMOCEPHALIC - Eye Exam Eye Exam: EOMI, PERRL - ENT Exam ENT Exam: Mucous Membranes Dry - Respiratory Exam Respiratory Exam: Clear to Auscultation Bilateral, NORMAL BREATHING PATTERN. absent: Rales, Rhonchi, Wheezes - Cardiovascular Exam Cardiovascular Exam: REGULAR RHYTHM, +S1, +S2 - GI/Abdominal Exam GI & Abdominal Exam: Guarding, Hypoactive Bowel Sounds, Soft, Tenderness. absent: Distended - Extremities Exam Extremities exam: Negative for: pedal edema - Neurological Exam Neurological exam: Alert, CN II-XII Intact, Oriented x3 - Psychiatric Exam Psychiatric exam: Normal Affect, Normal Mood - Skin Skin Exam: Dry, Warm Results - Vital Signs Recent Vital Signs: Last Vital Signs Temp 97.9 F 11/14/17 19:35 Pulse 123 H 11/14/17 19:35 Resp 18 11/14/17 19:35 BP 110/85 11/14/17 19:35 Pulse Ox 96 11/14/17 19:35 - Labs Result Diagrams: 11/14/17 21:18 11/14/17 21:18 Labs: Laboratory Results - last 24 hr 11/14/17 11/14/17 11/14/17 21:18 21:18 21:50 WBC 11.4 H D RBC 4.54 Hgb 16.4 H D Hct 44.3 MCV 97.6 D MCH 36.1 H MCHC 37.0 RDW 14.8 H Plt Count 378 MPV 9.3 Gran % 81.2 H Lymph % (Auto) 8.7 L [place] % (Auto) 9.6 H Eos % (Auto) 0.2 L Baso % (Auto) 0.3 Gran # 9.29 H Lymph # (Auto) 1.0 L [place] # (Auto) 1.1 H Eos # (Auto) 0.0 Baso # (Auto) 0.03 Sodium 130 L Potassium 1.8 L* D Chloride 81 L D Carbon Dioxide 36 H Anion Gap 15 BUN 10 Creatinine 0.5 L Est GFR ( Amer) > 60 Est GFR (Non-Af Amer) > 60 Random Glucose 112 H Calcium 9.3 Phosphorus 2.9 Magnesium 1.6 L Total Bilirubin 1.1 AST 68 H D ALT 42 Alkaline Phosphatase 137 H D Lactate Dehydrogenase Total Creatine Kinase Troponin I Total Protein 7.4 Albumin 4.1 Globulin 3.3 Albumin/Globulin Ratio 1.2 Lipase 171 11/14/17 22:11 WBC RBC Hgb Hct MCV MCH MCHC RDW Plt Count MPV Gran % Lymph % (Auto) [place] % (Auto) Eos % (Auto) Baso % (Auto) Gran # Lymph # (Auto) [place] # (Auto) Eos # (Auto) Baso # (Auto) Sodium Potassium Chloride Carbon Dioxide Anion Gap BUN Creatinine Est GFR ( Amer) Est GFR (Non-Af Amer) Random Glucose Calcium Phosphorus Magnesium Total Bilirubin AST ALT Alkaline Phosphatase Lactate Dehydrogenase 603 Total Creatine Kinase 48 Troponin I 0.03 D Total Protein Albumin Globulin Albumin/Globulin Ratio Lipase Assessment & Plan - Assessment and Plan (Free Text) Assessment: This is a 36 year old female with PMHx gallstone pancreatitis, seizure disorder , breast cancer s/p mastectomy, ovarian cancer s/p tumor resection x2, uterine cancer s/p hysterectomy who presents complaining of intractable nausea and vomiting as well as abdominal pain. Patient found to have hypokalemia with evidence of EKG changes. Plan: 1. Hypokalemia -Given 1000 mg Calcium Gluconate in the ED -Given Kdurr 40 mEq PO and K-riders 20 mEq IV x2 in the ED along with magnesium sulfate -Given 3 L boluses of Normal saline -Ordered for 1 more 20 mEq K-rider -Ordered for NS 150 cc/hr after the boluses finish -Ordered a follow up EKG in the AM 2. Abdominal pain -Strict NPO -CT abdomen/pelvis with IV contrast demonstrates gallbladder distension with gallstone -f/u final read of gallbladder ultrasound -Gallbladder ultrasound -ordered HIDA scan -surgery consult 3. Seizure Disorder -Keppra 500 mg IV Q12 -Depakote 750 mg IV Q12 4. Tobacco Use Disorder -counselled on smoking cessation 5. Prophylaxis -SCDs -Protonix IV Discussed with Dr. Coral Burks PGY-1 <Coral CONRAD,Ramon - Last Filed: 11/15/17 01:31> Results - Vital Signs Recent Vital Signs: Last Vital Signs Temp 97.9 F 11/14/17 19:35 Pulse 85 11/15/17 00:40 Resp 16 11/15/17 00:40 BP 120/79 11/15/17 00:40 Pulse Ox 100 11/15/17 00:40 - Labs Result Diagrams: 11/14/17 21:18 11/14/17 21:18 Attending/Attestation - Attestation I have personally seen and examined this patient.: Yes I have fully participated in the care of the patient.: Yes I have reviewed all pertinent clinical information: Yes Notes (Text): -I agree with the above H&P completed by the resident physician with the following additions and/or changes: -The patient is a 36 year old woman with a history of gallstone pancreatitis ( 2016), seizure disorder, breast and uterine cancers (s/p mastectomy and hysterectomy, respectively)(7+ years in remission), depression and bipolar disorder, who presents with severe hypokalemia and dehydration due to 1 week of intractable N/V (non-bloody, non-bilious) and 2 days of waxing and waning RUQ abdominal pain. She denies fevers, chills, cough, jaundice, recent alcohol or drug use or dysuria. On ED labs, serum potassium was 1.8. Of note, in 2017, the [place] was [place] [facility] [place] for which an outpatient cholecystectomy was recommended but patient was reportedly lost to follow-up. Her lipase on current ED labs is normal and abdominal U/S and CT-A/P shows only a small gallstone and sludge. However, on exam, she is very tender to palpation in the RUQ region. As a result, given her history, she will be treated empirically with IV antibiotics and a HIDA scan has been ordered to better evaluate. Aggressive IV KCL and IVFs will be administered. General surgery has also been consulted to due to the patients history and equivocal presentation..
--- NOTE | 2017-11-15 00:32 | CT ---
EXAM: CT Abdomen and Pelvis With Intravenous Contrast EXAM DATE/TIME: 11/14/2017 8:11 PM CLINICAL HISTORY: 36 years old, female; Pain; Abdominal pain; Localized; Right; Prior surgery; Surgery date: 6+ months; Surgery type: HX appendectomy, HX bilateral masttectomy; Patient HX: HX cervical ca, HX uterine ca, HX ovarian ca TECHNIQUE: Axial computed tomography images of the abdomen and pelvis with intravenous contrast. All CT scans at this facility use one or more dose reduction techniques, viz.: automated exposure control; ma/kV adjustment per patient size (including targeted exams where dose is matched to indication; i.e. head); or iterative reconstruction technique. Coronal and sagittal reformatted images were created and reviewed. CONTRAST: 100 mL of omnipaque 350 administered intravenously. COMPARISON: CT abdomen and pelvis 04/06/17 FINDINGS: Lung bases: See below. Heart: Heart size is normal. Lung bases are clear ABDOMEN: Liver: There is fatty infiltration of the liver. Liver is mildly enlarged Gallbladder and bile ducts: Gallbladder is distended. There is a small gallstone.There is prominence of the common duct. Pancreas: Pancreas is mildly atrophic. Spleen: unremarkable Adrenals: unremarkable Kidneys and ureters: unremarkable Stomach and bowel: Stomach is partially distended. Rotation is normal. There is duodenal and jejunal wall and fold thickening. Fold thickening increases in the mid small bowel. There is distal and terminal ileal wall thickening. Cecum is low in the pelvis. There are surgical clips at the base of the cecum. There is diffuse colonic wall thickening. PELVIS: Appendix: Surgically absent Bladder: unremarkable Reproductive: Uterus and adnexal structures are unremarkable. ABDOMEN and PELVIS: Intraperitoneal space: There is no significant fluid.There is no free air. Bones/joints: unremarkable Soft tissues: There are bilateral breast implants. Vasculature: Vascular structures are unremarkable. Lymph nodes: There is no pathologic adenopathy. IMPRESSION: Mildly enlarged fatty liver; distended gallbladder with gallstone and mild common duct prominence; enterocolitis; bilateral breast implants Additional nonemergent findings as described above.
[2017-11-15] MEDS ORDERED: Valproate 500 MG in Sodium Chloride 0.9% 100 ML IVPB ONE (01:00)
[2017-11-15] MEDS: Morphine 2 mg/ml ISec IVP PRN ×3 (01:13→21:00)
[2017-11-15] MEDS: Valproate 750 MG in Sodium Chloride 0.9% 100 ML IVPB SCH ×2 (01:54→15:20)
[2017-11-15] MEDS ORDERED: Sodium Chloride 0.9% 1,000 ML IV SCH (02:30)
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
[2017-11-15 07:17] LABS: BASO # 0.06 K/mm3 (0.0-2.0); EOS # 0.1 (0.0-0.7); EOS % 1.3 % (1.5-5.0); GRAN # 3.74 (1.4-6.5); GRAN % 62.8 % (50.0-68.0); LYMPH # 1.5 (1.2-3.4); LYMPH % 25.3 % (22.0-35.0); MEAN CELL VOLUME 99.4 fl (80.0-105.0); MEAN CORPUSCULAR HEMOGLOBIN 35.5 pg (25.0-35.0); MEAN CORPUSCULAR HGB CONC 35.7 g/dl (31.0-37.0); MONO # 0.6 (0.1-0.6); MONO % 9.6 % (1.0-6.0); RBC 3.3 10^6/uL (3.5-6.1); RED CELL DISTRIBUTION WIDTH 14.9 % (11.5-14.5)
[2017-11-15 07:30] LABS: HEMOGLOBIN 11.7 g/dL (12.0-16.0)
[2017-11-15 07:31] LABS: INR 1.01 (0.93-1.08); PARTIAL THROMBOPLASTIN TIME 29.5 Seconds (25.1-36.5); PROTHROMBIN TIME 11.6 SECONDS (9.4-12.5)
[2017-11-15 07:42] LABS: ALBUMIN 2.4 g/dL (3.0-4.8); ALT/SGPT 28 U/L (7-56); AMYLASE 90 U/L (35-125); AST/SGOT 43 U/L (14-36); BLOOD UREA NITROGEN 5 mg/dL (7-21); CALCIUM 7.2 mg/dL (8.4-10.5); GFR AFRICAN-AMERICAN > 60; GFR NON-AFRICAN AMERICAN > 60; LIPASE 1067 U/L (23-300)
[2017-11-15] MEDS ORDERED: Magnesium 2 gm/50 ml NS 2 GM/50 ML BAG IVPB ONE (07:53)
[2017-11-15] MEDS: levETIRAcetam 500mg IVPB 500 MG/100 ML BAG IV SCH ×2 (09:20→21:00)
--- NOTE | 2017-11-15 11:00 | CP.PCM.PN ---
<Kaushal Araya - Last Filed: 11/15/17 14:16> Subjective - Date & Time of Evaluation Date of Evaluation: 11/15/17 Time of Evaluation: 06:00 - Subjective Subjective: Patient seen and examined at bedside in no acute distress. She states her left upper quadrant pain is currently 7/10 from previous 15/10 she experienced when she was first admitted. Patient endorses decreased bowel movements due to decreased oral intake, however has been producing urine despite inadequate oral intake. Is currently aware of plan for HIDA then making a further decision based on results. Admits to nausea, non-bilious vomiting, and decreased bowel movements. Denies chest pain, shortness of breath, dizziness, palpitations, headache, cough, diarrhea. Objective - Vital Signs/Intake and Output Vital Signs (last 24 hours): Temp Pulse Resp BP Pulse Ox 98.3 F 85 18 106/70 100 11/15/17 06:00 11/15/17 09:00 11/15/17 09:00 11/15/17 09:00 11/15/17 09:00 Intake and Output: 11/15/17 11/15/17 06:59 18:59 Intake Total 1700 Output Total 350 Balance 1350 - Medications Medications: Current Medications Levetiracetam (Keppra 500mg Ivpb) 500 mg in 100 mls @ 460 mls/hr IV Q12 [facility] Last Admin: 11/15/17 09:20 Dose: 460 mls/hr Ampicillin Sodium/Sulbactam (Sodium 3 gm/ Sodium Chloride) 100 mls @ 200 mls/ hr IVPB Q6H [facility] PRN Reason: Protocol Last Admin: 11/15/17 08:59 Dose: 200 mls/hr Valproate Sodium 750 mg/ (Sodium Chloride) 107.5 mls @ 100 mls/hr IVPB Q12H [facility] Last Admin: 11/15/17 01:54 Dose: 100 mls/hr Potassium Chloride 40 meq/ (Sodium Chloride) 1,020 mls @ 150 mls/hr IV .Q6H48M [facility] Last Admin: 11/15/17 09:22 Dose: 150 mls/hr Potassium Chloride (Potassium Chloride 20 Meq/100 Ml) 20 meq in 100 mls @ 50 mls/hr IVPB Q2H [facility] Stop: 11/15/17 13:59 Last Admin: 11/15/17 09:51 Dose: 50 mls/hr Lorazepam (Ativan) 2 mg IVP Q6H PRN; Protocol PRN Reason: Seizure activity Morphine Sulfate (Morphine) 2 mg IVP Q6H PRN PRN Reason: Pain, severe (8-10) Last Admin: 11/15/17 09:15 Dose: 2 mg Ondansetron HCl (Zofran Inj) 4 mg IVP Q6H PRN PRN Reason: Nausea/Vomiting Pantoprazole Sodium (Protonix Inj) 40 mg IVP DAILY [facility] Last Admin: 11/15/17 09:17 Dose: 40 mg - Labs Labs: 11/15/17 07:00 11/15/17 07:00 PT 11.6 SECONDS (9.4-12.5) 11/15/17 07:00 INR 1.01 (0.93-1.08) 11/15/17 07:00 APTT 29.5 Seconds (25.1-36.5) 11/15/17 07:00 - Head Exam Head Exam: ATRAUMATIC, NORMAL INSPECTION, NORMOCEPHALIC - Eye Exam Eye Exam: EOMI, Normal appearance - ENT Exam ENT Exam: Mucous Membranes Dry - Respiratory Exam Respiratory Exam: Clear to Ausculation Bilateral, NORMAL BREATHING PATTERN. absent: Rhonchi, Wheezes - Cardiovascular Exam Cardiovascular Exam: REGULAR RHYTHM, +S1, +S2 - GI/Abdominal Exam GI & Abdominal Exam: Soft, Tenderness (RUQ), Normal Bowel Sounds. absent: Distended - Extremities Exam Extremities Exam: Normal Inspection. absent: Pedal Edema, Tenderness - Back Exam Back Exam: NORMAL INSPECTION - Neurological Exam Neurological Exam: Alert, Awake, Oriented x3 - Psychiatric Exam Psychiatric exam: Normal Affect, Normal Mood - Skin Skin Exam: Normal Color, Warm Assessment and Plan - Assessment and Plan (Free Text) Assessment: This is a 36 year old female with PMHx gallstone pancreatitis, seizure disorder , breast cancer s/p mastectomy, ovarian cancer s/p tumor resection x2, uterine cancer s/p hysterectomy who presents complaining of intractable nausea and vomiting as well as abdominal pain. Patient found to have hypokalemia with evidence of EKG changes. Since repletion of potassium EKGs were demonstrating normal sinus rhythm overnight into the morning. Patient currently going for HIDA and vitals are stable. Plan: Pancreatitis -NPO -CT abdomen/Pelvis with IV contrast shows distended gallbladder with cholelithiasis -Gallbladder US ordered; results pending -HIDA scan ordered -Continue with IVF@125 -GI consulted: Dr. Conroy; recommendations appreciated -General surgery consulted; recommendations appreciated -Monitor lipase. Initial value upon being admitted 171 currently 1067 -Monitor calcium and replete as needed. Corrected calcium 8.6. -Continue with morphine for pain control Leukocytosis secondary to possible cholecystitis -Continue with Unasyn -WBC count currently downtrending, continue to monitor -Urinalysis ordered; results pending Hypokalemia -Most likely secondary to patient vomiting for a week as well as decreased PO intake -Continue to monitor and replete potassium as needed; initial value 1.8 current 2.9 -Patient currently receiving potassium in IVF and K riders -Continue to replete magnesium as needed -Monitor for EKG changes Seizure Disorder -Continue with Keppra 500 mg IV Q12 -Continue with Depakote 750 mg IV Q12 -Ativan PRN 4. Tobacco Use Disorder -counseled on smoking cessation 5. Prophylaxis -SCDs and Heparin -Protonix IV <Hermann Nina - Last Filed: 11/15/17 21:02> Objective - Vital Signs/Intake and Output Vital Signs (last 24 hours): Temp Pulse Resp BP Pulse Ox 97.6 F 103 H 20 112/75 97 11/15/17 16:57 11/15/17 18:00 11/15/17 16:57 11/15/17 16:57 11/15/17 16:57 Intake and Output: 11/15/17 11/16/17 18:59 06:59 Intake Total 0 Balance 0 - Medications Medications: Current Medications Heparin Sodium (Porcine) (Heparin) 5,000 units SC Q8 [facility] PRN Reason: Protocol Last Admin: 11/15/17 15:20 Dose: 5,000 units Levetiracetam (Keppra 500mg Ivpb) 500 mg in 100 mls @ 460 mls/hr IV Q12 [facility] Last Admin: 11/15/17 09:20 Dose: 460 mls/hr Ampicillin Sodium/Sulbactam (Sodium 3 gm/ Sodium Chloride) 100 mls @ 200 mls/ hr IVPB Q6H [facility] PRN Reason: Protocol Last Admin: 11/15/17 20:03 Dose: 200 mls/hr Valproate Sodium 750 mg/ (Sodium Chloride) 107.5 mls @ 100 mls/hr IVPB Q12H [facility] Last Admin: 11/15/17 15:20 Dose: 100 mls/hr Sodium Chloride (Sodium Chloride 0.9%) 1,000 mls @ 125 mls/hr IV .Q8H [facility] Last Admin: 11/15/17 18:39 Dose: 125 mls/hr Potassium Phosphate 30 mmole/ (Sodium Chloride) 260 mls @ 42.5 mls/hr IVPB ONCE ONE Stop: 11/16/17 02:47 Lorazepam (Ativan) 2 mg IVP Q6H PRN; Protocol PRN Reason: Seizure activity Morphine Sulfate (Morphine) 2 mg IVP Q6H PRN PRN Reason: Pain, severe (8-10) Last Admin: 11/15/17 09:15 Dose: 2 mg Ondansetron HCl (Zofran Inj) 4 mg IVP Q6H PRN PRN Reason: Nausea/Vomiting Pantoprazole Sodium (Protonix Inj) 40 mg IVP DAILY [facility] Last Admin: 11/15/17 09:17 Dose: 40 mg - Labs Labs: 11/15/17 11:00 11/15/17 17:16 PT 11.6 SECONDS (9.4-12.5) 11/15/17 07:00 INR 1.01 (0.93-1.08) 11/15/17 07:00 APTT 29.5 Seconds (25.1-36.5) 11/15/17 07:00 Attending/Attestation - Attestation I have personally seen and examined this patient.: Yes I have fully participated in the care of the patient.: Yes I have reviewed all pertinent clinical information, including history, physical exam and plan: Yes Notes (Text): 11/15/17 21:00 Patient seen and examined at bedside. Overnight events and today's labs, vitals and orders reviewed. She reports some improvement in her pain levels today AM as well as reduced nausea/vomiting. Electrolyte abnormalities noted and repletion regimen ordered. GI and surgery consultation noted, HIDA result reviewed and plan for MRCP and surgical intervention on Friday noted. Continue antibiotics. Agree with the plan as discussed and outlined with the resident.
[2017-11-15 11:08] LABS: BASO # 0.07 K/mm3 (0.0-2.0); BASO % 1.2 % (0.0-3.0); EOS # 0.1 (0.0-0.7); EOS % 1.9 % (1.5-5.0); GRAN # 3.61 (1.4-6.5); GRAN % 62.3 % (50.0-68.0); HEMOGLOBIN 11.4 g/dL (12.0-16.0); LYMPH # 1.4 (1.2-3.4); LYMPH % 24.9 % (22.0-35.0); MEAN CORPUSCULAR HEMOGLOBIN 35.1 pg (25.0-35.0); MEAN CORPUSCULAR HGB CONC 35.1 g/dl (31.0-37.0); MEAN PLATELET VOLUME 8.8 fl (7.0-11.0); MONO # 0.6 (0.1-0.6); MONO % 9.7 % (1.0-6.0); RBC 3.25 10^6/uL (3.5-6.1); RED CELL DISTRIBUTION WIDTH 14.9 % (11.5-14.5); WHITE BLOOD COUNT 5.8 10^3/ul (4.5-11.0)
[2017-11-15 11:42] LABS: ALB/GLOB RATIO 0.9 (1.1-1.8); ALBUMIN 2.3 g/dL (3.0-4.8); ALT/SGPT 28 U/L (7-56); AST/SGOT 43 U/L (14-36); BLOOD UREA NITROGEN 4 mg/dL (7-21); CALCIUM 7.2 mg/dL (8.4-10.5); GFR AFRICAN-AMERICAN > 60; GFR NON-AFRICAN AMERICAN > 60
[2017-11-15] MEDS ORDERED: Potassium Chloride 20 mEq ER Tab PO ONE ×3 (11:54→20:39)
--- NOTE | 2017-11-15 14:04 | CARD ---
APPROVED REPORT EKG Measurement Heart [id number] <Conclusion> Normal sinus rhythm Cannot rule out Anterior infarct, age undetermined Prolonged QT ST & T wave abnormality, consider lateral ischemia Abnormal ECG
--- NOTE | 2017-11-15 14:13 | CARD ---
APPROVED REPORT EKG Measurement Heart [id number] MD [id number] <Conclusion> Normal sinus rhythm Possible Left atrial enlargement RSR' or QR pattern in V1 suggests right ventricular conduction delay Anterior infarct, age undetermined ST & T wave abnormality, consider lateral ischemia Abnormal ECG
--- NOTE | 2017-11-15 17:20 | NM ---
EXAM: NM Hepatobiliary Imaging Incl Gallbladder When Present EXAM DATE/TIME: 11/15/2017 12:07 PM CLINICAL HISTORY: 36 years old, female; Pain; Other: Abd. Pain; Additional info: Check for obstruction, CT abd shows gallstones TECHNIQUE: Nuclear medicine hepatobiliary imaging incl gallbladder when present. Serial images were obtained for 60 minutes following intravenous administration of 5 L 90 9M technetium Choletec. Delayed 3 hour images were also obtained. COMPARISON: CT - ABD PELVIS IV CONTRAST ONLY 2017-11-14 22:49 FINDINGS: Liver: There is prompt extraction of isotope by the liver. Ducts and gallbladder: Ducts and gallbladder aren't visualized by 15 minutes. Imaging was continued for 60 minutes. There is large amount of activity in the gallbladder. There is residual intrahepatic ductal activity. Bowel: There is bowel activity by 45 minutes. Bowel activity increases at 60 minutes. Delayed images 3 hours following isotope administration shows large amount of activity in the distended gallbladder. There is large amount of activity in the bowel. There is minimal activity IMPRESSION: Normal hepatobiliary scan
[2017-11-15 17:37] LABS: BLOOD UREA NITROGEN 3 mg/dL (7-21); CALCIUM 8.3 mg/dL (8.4-10.5); GFR AFRICAN-AMERICAN > 60; GFR NON-AFRICAN AMERICAN > 60
--- NOTE | 2017-11-15 17:52 | US ---
HISTORY: Right upper quadrant abdominal pain COMPARISON: None. TECHNIQUE: Sonographic evaluation of the right upper quadrant of the abdomen. FINDINGS: LIVER: Measures 14.3 cm in length. Smooth contour however increased echotexture suggesting fatty infiltration however other infiltrative hepatic cellular disease process not excluded. Clinical correlation recommended. . No masses seen on images presented No intrahepatic bile duct dilatation. GALLBLADDER: Intraluminal gallbladder sludge with possible intraluminal gravel/ small calculi. . Positive Delgado sign. Rule out acute cholecystitis COMMON BILE DUCT: Measures 4.8 mm. No stones. No dilatation. PANCREAS: Unremarkable as visualized. No mass. No ductal dilatation. RIGHT KIDNEY: Measures 12.5 x 4.7 x 6.3 cm in length. Normal echogenicity. No calculus, mass, or hydronephrosis. AORTA: No aneurysmal dilatation. IVC: Unremarkable. OTHER FINDINGS: None . IMPRESSION: Intraluminal gallbladder sludge with possible intraluminal gravel/ small calculi. Positive sonographic Delgado sign. Findings could represent acute cholecystitis. Clinical correlation recommended
[2017-11-15] MEDS: Sodium Chloride 0.9% 1,000 ML IV SCH (18:39)
[2017-11-15] MEDS ORDERED: Potassium Phosphate 30 MMOLE in Sodium Chloride 0.9% 250 ML IVPB ONE (20:40)
[2017-11-15 21:28] LABS: TROPONIN I 0.02 ng/mL
[2017-11-16] MEDS: Valproate 750 MG in Sodium Chloride 0.9% 100 ML IVPB SCH ×2 (00:39→13:07)
[2017-11-16] MEDS ORDERED: Morphine 2 mg/ml ISec IVP ONE (00:49)
[2017-11-16] MEDS: Sodium Chloride 0.9% 1,000 ML IV SCH (01:52)
--- NOTE | 2017-11-16 02:29 | CON ---
DATE: 11/15/2017 REASON FOR CONSULTATION: Abdominal pain, elevated lipase level, gallstones, rule out pancreatitis, for evaluation of pancreatitis. HISTORY OF PRESENT ILLNESS: This is a 36-year-old patient with a history of breast cancer, status post chemoradiation, status post bilateral mastectomy and breast implant; history of cervical dysplasia, status post LEEP procedure. Patient is being followed by Dr. Desai, [facility]. Last time she saw Dr. Desai was more than a year ago. Admitted with abdominal pain, nausea, vomiting. Unable to keep food down. She had worsening of the symptoms for the past 6 days prior to the admission. Patient was admitted in [facility] again in April. Multiple admissions in the past. Had an endoscopy done in 08/2016, found to have only gastritis and esophagitis. Her main complaint now is discomfort, pain, nausea, and vomiting. Pain is mainly in the right side of the abdomen and right lower quadrant area presently. She did have also some mild epigastric discomfort. She points out the maximum intensity of the symptoms mainly on the right side of the abdomen. No fever. No diarrhea. No bleeding per rectum. No vomiting blood. PAST MEDICAL HISTORY: Her other past medical history is significant as above, history of bipolar disorder. Patient is known to have gallstones, status post appendicectomy. ALLERGIES: NO KNOWN DRUG ALLERGIES. SOCIAL HISTORY: Positive for smoking half a pack per day. History of alcohol use. FAMILY HISTORY: Mother had breast cancer. REVIEW OF SYSTEMS: Positive as above. Other systems reviewed. PHYSICAL EXAMINATION: GENERAL: Patient is lying on the bed, not in acute distress. VITAL SIGNS: Temperature is 97.6, pulse 86, blood pressure is 112/75, respirations 20, O2 saturation 97%. HEENT: Atraumatic, anicteric. NECK: Supple. HEART: S1 and S2 heard. LUNGS: Bilateral air entry present. ABDOMEN: Soft. There is mild tenderness present in the epigastrium, right upper quadrant. Maximum tenderness patient points out to the right lower quadrant area. Also lower abdomen, mainly in the periumbilical area. There is no rebound or guarding. EXTREMITIES: No cyanosis. No clubbing. NEUROLOGIC: Alert, oriented. Moves all the extremities. LABORATORY DATA: Hemoglobin 11.4, hematocrit 32.5, WBC 5.8, platelets 285. Chemistry showed potassium initially was 2.4, it is being supplemented, now it is 3.5. LFTs remain normal except AST of 43. The lipase is elevated to 1067. Patient did have an ultrasound scan of the abdomen, which was reviewed. It showed gallbladder sludge and a small gallstone. Common bile duct appeared normal, measured only 4.8. I did review the CAT scan. The significant finding is the significant thickening of the right colon and also the cecal area. Patient does have a loop of the bowel. It is very low in the pelvic area. Pancreatic contour appears essentially unremarkable. IMPRESSION: Episodes of abdominal pain, vomiting. The patient does have a thickening of the right colon. There is some prominence of the small bowel loops also noticed. There is a significant loop of the bowel in the pelvis seen. The etiology for this significant thickening of the cecal area and ascending colon is unclear, but patient does have tenderness in that area maximum. Patient does have gallstones and layering of the gallstones, but the common bile duct appeared normal, LFTs normal, pancreatic contour and CAT scan appeared normal. Patient does have elevated lipase level. Her other comorbidities include bipolar disorder, history of cervical cancer, status post loop electrosurgical excision procedure. Patient did not have any hysterectomy. Patient does have the uretus in place. Patient does have some loop electrosurgical excision procedure clips in the right lower quadrant that could be from the appendicectomy. RECOMMENDATIONS: I am not very clear that this is a pancreatitis. The clinical finding is more suggestive of enterocolitis. This is a significant finding. The reasonable thing is to do stool culture, and we will start the patient on Flagyl and cephalosporin antibiotics. We will start the patient on clear liquid diet. Request for an MRI of the abdomen with attention to pancreas with an MRCP to further evaluate. Patient also has a history of ETOH use, that also could be a contributory factor for mildly elevated pancreatitis. But, however, with the CBD normal with normal LFTs, it is less likely due to gallstone pancreatitis. We will continue to closely follow up her care and suggest further management based on the clinical course. I have discussed the case in detail with the medical records supervisor. Drew Conroy MD [facility] # [id number] MTDD
[2017-11-16 07:38] LABS: BASO # 0.15 K/mm3 (0.0-2.0); BASO % 2.8 % (0.0-3.0); EOS # 0.1 (0.0-0.7); EOS % 2.2 % (1.5-5.0); GRAN # 2.76 (1.4-6.5); GRAN % 51.5 % (50.0-68.0); HEMOGLOBIN 11.1 g/dL (12.0-16.0); LYMPH # 1.9 (1.2-3.4); LYMPH % 34.9 % (22.0-35.0); MEAN CELL VOLUME 101.9 fl (80.0-105.0); MEAN CORPUSCULAR HEMOGLOBIN 34.9 pg (25.0-35.0); MEAN CORPUSCULAR HGB CONC 34.3 g/dl (31.0-37.0); MEAN PLATELET VOLUME 9.3 fl (7.0-11.0); MONO # 0.5 (0.1-0.6); MONO % 8.6 % (1.0-6.0); RBC 3.18 10^6/uL (3.5-6.1); RED CELL DISTRIBUTION WIDTH 14.9 % (11.5-14.5); WHITE BLOOD COUNT 5.4 10^3/ul (4.5-11.0)
[2017-11-16 07:52] LABS: ALB/GLOB RATIO 0.9 (1.1-1.8); ALBUMIN 2.2 g/dL (3.0-4.8); ALT/SGPT 28 U/L (7-56); AST/SGOT 38 U/L (14-36); BLOOD UREA NITROGEN < 2 mg/dL (7-21); CALCIUM 7.2 mg/dL (8.4-10.5); GFR AFRICAN-AMERICAN > 60; GFR NON-AFRICAN AMERICAN > 60
[2017-11-16] MEDS: Morphine 2 mg/ml ISec IVP PRN ×2 (08:13→14:45)
--- NOTE | 2017-11-16 08:18 | CP.PCM.PN ---
Subjective - Date & Time of Evaluation Date of Evaluation: 11/16/17 Time of Evaluation: 08:00 - Subjective Subjective: General Surgery Pt Seen and examined. No acute events overnight. Pain slightly improved. Tolerated liquids. Possible MRCP today. No nausea or emesis. Objective - Vital Signs/Intake and Output Vital Signs (last 24 hours): Temp Pulse Resp BP Pulse Ox 97.6 F 82 20 103/72 96 11/16/17 06:00 11/16/17 06:00 11/16/17 06:00 11/16/17 06:00 11/16/17 06:00 Intake and Output: 11/16/17 11/16/17 06:59 18:59 Intake Total 2594 Output Total 1400 Balance 1194 - Medications Medications: Current Medications Heparin Sodium (Porcine) (Heparin) 5,000 units SC Q8 [facility] PRN Reason: Protocol Last Admin: 11/16/17 05:58 Dose: 5,000 units Levetiracetam (Keppra 500mg Ivpb) 500 mg in 100 mls @ 460 mls/hr IV Q12 [facility] Last Admin: 11/15/17 21:00 Dose: 460 mls/hr Ampicillin Sodium/Sulbactam (Sodium 3 gm/ Sodium Chloride) 100 mls @ 200 mls/ hr IVPB Q6H [facility] PRN Reason: Protocol Last Admin: 11/16/17 08:08 Dose: 200 mls/hr Valproate Sodium 750 mg/ (Sodium Chloride) 107.5 mls @ 100 mls/hr IVPB Q12H [facility] Last Admin: 11/16/17 00:39 Dose: 100 mls/hr Sodium Chloride (Sodium Chloride 0.9%) 1,000 mls @ 125 mls/hr IV .Q8H [facility] Last Admin: 11/16/17 01:52 Dose: 125 mls/hr Lorazepam (Ativan) 2 mg IVP Q6H PRN; Protocol PRN Reason: Seizure activity Morphine Sulfate (Morphine) 2 mg IVP Q6H PRN PRN Reason: Pain, severe (8-10) Last Admin: 11/15/17 21:00 Dose: 2 mg Ondansetron HCl (Zofran Inj) 4 mg IVP Q6H PRN PRN Reason: Nausea/Vomiting Last Admin: 11/15/17 21:00 Dose: 4 mg Pantoprazole Sodium (Protonix Inj) 40 mg IVP DAILY [facility] Last Admin: 11/15/17 09:17 Dose: 40 mg - Labs Labs: 11/16/17 07:00 11/16/17 07:00 PT 11.6 SECONDS (9.4-12.5) 11/15/17 07:00 INR 1.01 (0.93-1.08) 11/15/17 07:00 APTT 29.5 Seconds (25.1-36.5) 11/15/17 07:00 - Constitutional Appears: Non-toxic, No Acute Distress - Head Exam Head Exam: ATRAUMATIC, NORMOCEPHALIC - Eye Exam Eye Exam: EOMI, Scleral icterus - Respiratory Exam Respiratory Exam: NORMAL BREATHING PATTERN. absent: Respiratory Distress - GI/Abdominal Exam GI & Abdominal Exam: Guarding, Soft, Tenderness (periumbilical and RUQ). absent : Distended, Firm, Rigid - Neurological Exam Neurological Exam: Alert, Awake, Oriented x3 - Skin Skin Exam: Dry, Warm Assessment and Plan - Assessment and Plan (Free Text) Assessment: 36F with Symptomatic Cholelithiasis and hx of pancreatitis Plan: Planning for OR Tomorrow afternoon NPO p MN IVF Correct electrolytes PRN Will D/W Dr. Ludwin Cancino PGY4
[2017-11-16] MEDS ORDERED: Magnesium Sulfate 2 gm/50 ml 2 GM/50 ML BAG IVPB ONE (08:28)
[2017-11-16] MEDS ORDERED: Magnesium Sulfate 1 gm in D5W 1 GM/100 ML BAG IVPB ONE (08:54)
[2017-11-16] MEDS: levETIRAcetam 500mg IVPB 500 MG/100 ML BAG IV SCH ×2 (09:58→22:35)
[2017-11-16] MEDS: Potassium Chloride 20 mEq ER Tab PO STA ×2 (09:59→10:47)
[2017-11-16] MEDS ORDERED: Gadodiamide 287 MG/ML VIAL (15ML) IV ONE (11:43)
[2017-11-16] MEDS ORDERED: Piperacillin/Tazobact 3.375 gm 100 ML IVPB SCH (12:00)
[2017-11-16] MEDS: cefTRIAXone 1 gm 1 GM/100 ML BAG IVPB SCH (12:23)
--- NOTE | 2017-11-16 12:48 | CARD ---
APPROVED REPORT EKG Measurement Heart [id number] <Conclusion> Normal sinus rhythm ST & T wave abnormality, consider lateral ischemia Prolonged QT Abnormal ECG
[2017-11-16 13:05] LABS: BLOOD UREA NITROGEN < 2 mg/dL (7-21); CALCIUM 7.4 mg/dL (8.4-10.5); GFR AFRICAN-AMERICAN > 60; GFR NON-AFRICAN AMERICAN > 60
[2017-11-16] MEDS: Potassium Chloride 20 mEq ER Tab PO SCH ×3 (14:31→17:54)
[2017-11-16] MEDS: metroNIDAZOLE IV 500 mg/100 ml 500 MG/100 ML BAG IVPB SCH ×2 (14:32→21:31)
--- NOTE | 2017-11-16 14:59 | MRI ---
PROCEDURE: MRI Abdomen with and without contrast and MRCP HISTORY: Gallstone pancreatitis COMPARISON: CT abdomen/pelvis 11/14/2017. TECHNIQUE: Multisequence, multiplanar MR images of the abdomen with and without gadolinium contrast enhancement. FINDINGS: LIVER: Normal size, contour and signal intensity. No mass. No intrahepatic biliary ductal dilatation. No abnormal enhancement. GALLBLADDER: No cholelithiasis. No mural thickening. No pericholecystic fluid. Common bile duct measures 7-8 mm in diameter. No filling defect demonstrated. SPLEEN: Unremarkable. PANCREAS: No mass. No pancreatic ductal dilatation. No peripancreatic fluid or edema/inflammatory change. No abnormal enhancement. ADRENALS: Unremarkable. KIDNEYS: Left upper pole renal cortical cyst, 8 mm. No hydronephrosis. AORTA: No aneurysm. ASCITES: None. PERITONEUM: Unremarkable. LYMPH NODES: Unremarkable. OTHER FINDINGS: None. IMPRESSION: No evidence of cholecystitis or pancreatitis. No evidence of choledocholithiasis. No evidence of biliary obstruction.
--- NOTE | 2017-11-16 16:50 | CP.PCM.PN ---
<Kaushal Araya - Last Filed: 11/16/17 16:58> Subjective - Date & Time of Evaluation Date of Evaluation: 11/16/17 Time of Evaluation: 07:30 - Subjective Subjective: Patient seen and examined at bedside in no acute distress. Patient in noticeably less pain than Objective - Vital Signs/Intake and Output Vital Signs (last 24 hours): Temp Pulse Resp BP Pulse Ox 97.7 F 84 18 105/75 96 11/16/17 13:00 11/16/17 13:00 11/16/17 13:00 11/16/17 13:00 11/16/17 06:00 Intake and Output: 11/16/17 11/16/17 06:59 18:59 Intake Total 2594 420 Output Total 1400 3 Balance 1194 417 - Medications Medications: Current Medications Heparin Sodium (Porcine) (Heparin) 5,000 units SC Q8 [facility] PRN Reason: Protocol Last Admin: 11/16/17 14:31 Dose: 5,000 units Levetiracetam (Keppra 500mg Ivpb) 500 mg in 100 mls @ 460 mls/hr IV Q12 [facility] Last Admin: 11/16/17 09:58 Dose: 460 mls/hr Valproate Sodium 750 mg/ (Sodium Chloride) 107.5 mls @ 100 mls/hr IVPB Q12H [facility] Last Admin: 11/16/17 13:07 Dose: 100 mls/hr Potassium Chloride 40 meq/ (Sodium Chloride) 1,020 mls @ 125 mls/hr IV .Q8H10M [facility] Last Admin: 11/16/17 13:07 Dose: 125 mls/hr Metronidazole (Flagyl) 500 mg in 100 mls @ 100 mls/hr IVPB Q8 [facility] PRN Reason: Protocol Last Admin: 11/16/17 14:32 Dose: 100 mls/hr Ceftriaxone Sodium (Rocephin 1 Gram Ivpb) 1 gm in 100 mls @ 100 mls/hr IVPB DAILY [facility] PRN Reason: Protocol Last Admin: 11/16/17 12:23 Dose: 100 mls/hr Potassium Chloride (Potassium Chloride 10 Meq/100 Ml) 10 meq in 100 mls @ 50 mls/hr IVPB Q2H [facility] Stop: 11/16/17 18:14 Last Admin: 11/16/17 16:46 Dose: 50 mls/hr Lorazepam (Ativan) 2 mg IVP Q6H PRN; Protocol PRN Reason: Seizure activity Morphine Sulfate (Morphine) 2 mg IVP Q6H PRN PRN Reason: Pain, severe (8-10) Last Admin: 11/16/17 14:45 Dose: 2 mg Ondansetron HCl (Zofran Inj) 4 mg IVP Q6H PRN PRN Reason: Nausea/Vomiting Last Admin: 11/16/17 14:45 Dose: 4 mg Pantoprazole Sodium (Protonix Inj) 40 mg IVP DAILY [facility] Last Admin: 11/16/17 10:04 Dose: 40 mg - Labs Labs: 11/16/17 07:00 11/16/17 12:45 PT 11.6 SECONDS (9.4-12.5) 11/15/17 07:00 INR 1.01 (0.93-1.08) 11/15/17 07:00 APTT 29.5 Seconds (25.1-36.5) 11/15/17 07:00 - Head Exam Head Exam: ATRAUMATIC, NORMAL INSPECTION, NORMOCEPHALIC - Eye Exam Eye Exam: EOMI, Normal appearance - ENT Exam ENT Exam: Mucous Membranes Moist - Neck Exam Neck Exam: Normal Inspection - Respiratory Exam Respiratory Exam: Clear to Ausculation Bilateral, NORMAL BREATHING PATTERN. absent: Rhonchi, Wheezes - Cardiovascular Exam Cardiovascular Exam: REGULAR RHYTHM, +S1, +S2 - GI/Abdominal Exam GI & Abdominal Exam: Soft, Tenderness (right lower quadrant), Normal Bowel Sounds - Extremities Exam Extremities Exam: Normal Inspection - Back Exam Back Exam: NORMAL INSPECTION - Neurological Exam Neurological Exam: Alert, Awake, Oriented x3 - Psychiatric Exam Psychiatric exam: Normal Affect, Normal Mood - Skin Skin Exam: Normal Color, Warm Assessment and Plan - Assessment and Plan (Free Text) Assessment: This is a 36 year old female with PMHx gallstone pancreatitis, seizure disorder , breast cancer s/p mastectomy, ovarian cancer s/p tumor resection x2, uterine cancer s/p hysterectomy who presents complaining of intractable nausea and vomiting as well as abdominal pain. Patient found to initially have hypokalemia with evidence of EKG changes. Since repletion of potassium EKGs were demonstrating normal sinus rhythm. Patient was thought to have pancreatitis due to cholelithiasis. Patient went for HIDA scan which was unremarkable. Patient is still experiencing electrolyte derangements which could be due to alcohol abuse. Plan: Abdominal pain -NPO -CT abdomen/Pelvis with IV contrast shows distended gallbladder with cholelithiasis -Gallbladder US ordered; reveals small calculi -HIDA is unremarkable -Continue with IVF@125 -GI consulted: Dr. Conroy; recommendations for evaluation for suspected colitis -General surgery consulted; recommendations appreciated -Monitor lipase. Initial value upon being admitted 171 yesterday 1067 and today 249 -Monitor calcium and replete as needed. Corrected calcium 8.6. -Continue with morphine for pain control -Patient's presentation is more consistent with enterocolitis. Cholecystectomy can be done as an elective procedure as outpatient. Does not need to be done at this moment. Leukocytosis -Resolved -Rocephin and Flagyl started -WBC count currently downtrending, continue to monitor -Urinalysis ordered; results pending Hypokalemia -Most likely secondary to patient vomiting for a week as well as decreased PO intake and hypomagnesemia -Continue to monitor and replete potassium as needed -Patient currently receiving potassium in IVF and PO -Continue to replete magnesium as needed -Monitor for EKG changes Seizure Disorder -Continue with Keppra 500 mg IV Q12 -Continue with Depakote 750 mg IV Q12 -Ativan PRN 4. Tobacco Use Disorder -counseled on smoking cessation 5. Prophylaxis -SCDs and Heparin -Protonix IV <Jona Salcido - Last Filed: 11/17/17 16:43> Objective - Vital Signs/Intake and Output Vital Signs (last 24 hours): Temp Pulse Resp BP Pulse Ox 97.4 F L 95 H 20 101/66 98 11/17/17 12:00 11/17/17 12:00 11/17/17 12:00 11/17/17 12:00 11/17/17 05:51 Intake and Output: 11/17/17 11/17/17 06:59 18:59 Intake Total 1950 390 Output Total 550 Balance 1400 390 - Medications Medications: Current Medications Heparin Sodium (Porcine) (Heparin) 5,000 units SC Q8 [facility] PRN Reason: Protocol Last Admin: 11/17/17 13:26 Dose: 5,000 units Levetiracetam (Keppra 500mg Ivpb) 500 mg in 100 mls @ 460 mls/hr IV Q12 [facility] Last Admin: 11/17/17 09:10 Dose: 460 mls/hr Valproate Sodium 750 mg/ (Sodium Chloride) 107.5 mls @ 100 mls/hr IVPB Q12H [facility] Last Admin: 11/17/17 14:31 Dose: 100 mls/hr Potassium Chloride 40 meq/ (Sodium Chloride) 1,020 mls @ 125 mls/hr IV .Q8H10M [facility] Last Admin: 11/17/17 11:16 Dose: 125 mls/hr Metronidazole (Flagyl) 500 mg in 100 mls @ 100 mls/hr IVPB Q8 [facility] PRN Reason: Protocol Last Admin: 11/17/17 13:26 Dose: 100 mls/hr Ceftriaxone Sodium (Rocephin 1 Gram Ivpb) 1 gm in 100 mls @ 100 mls/hr IVPB DAILY [facility] PRN Reason: Protocol Last Admin: 11/17/17 09:04 Dose: 100 mls/hr Magnesium 2 gm/50 ml NS (Magnesium Sulfate 2 Gm/50 Ml Ns) 2 gm in 50 mls @ 50 mls/hr IVPB ONCE ONE Stop: 11/17/17 17:36 Lorazepam (Ativan) 2 mg IVP Q6H PRN; Protocol PRN Reason: Seizure activity Morphine Sulfate (Morphine) 2 mg IVP Q6H PRN PRN Reason: Pain, severe (8-10) Last Admin: 11/17/17 08:52 Dose: 2 mg Ondansetron HCl (Zofran Inj) 4 mg IVP Q6H PRN PRN Reason: Nausea/Vomiting Last Admin: 11/17/17 08:51 Dose: 4 mg Pantoprazole Sodium (Protonix Inj) 40 mg IVP DAILY [facility] Last Admin: 11/17/17 09:04 Dose: 40 mg - Labs Labs: 11/17/17 06:00 11/17/17 06:00 PT 11.6 SECONDS (9.4-12.5) 11/15/17 07:00 INR 1.01 (0.93-1.08) 11/15/17 07:00 APTT 29.5 Seconds (25.1-36.5) 11/15/17 07:00 Attending/Attestation - Attestation I have personally seen and examined this patient.: Yes I have fully participated in the care of the patient.: Yes I have reviewed all pertinent clinical information, including history, physical exam and plan: Yes Notes (Text): 11/17/17 16:43 Medical record note made by the resident after discussion with my direction and input after the patient was personally seen and examined by me. I have reviewed the chart and agree that the record accurately reflects by personal performance of the history, physical exam, data review, and medical decision-making, in the course for the patient. I have also personally directed the plan of care.
[2017-11-16 19:12] LABS: URINE BILIRUBIN NEGATIVE (NEGATIVE); URINE BLOOD NEGATIVE (NEGATIVE); URINE GLUCOSE (UA) NEGATIVE (NEGATIVE); URINE LEUKOCYTE ESTERASE NEGATIVE Leu/uL (NEGATIVE); URINE PROTEIN NEGATIVE mg/dL (<30 mg/dL); URINE UROBILINOGEN 0.2 E.U./dL (<1 E.U./dL)
[2017-11-16 19:17] LABS: URINE APPEARANCE CLEAR (CLEAR); URINE COLOR STRAW (YELLOW)
[2017-11-16 20:49] LABS: BLOOD UREA NITROGEN < 2 mg/dL (7-21); CALCIUM 7.4 mg/dL (8.4-10.5); GFR AFRICAN-AMERICAN > 60; GFR NON-AFRICAN AMERICAN > 60
[2017-11-17] MEDS: Valproate 750 MG in Sodium Chloride 0.9% 100 ML IVPB SCH ×2 (00:06→14:31)
--- NOTE | 2017-11-17 02:43 | PN ---
DATE: 11/16/2017 SUBJECTIVE: This patient was seen and evaluated earlier today. Patient still complains of pain in the right lower quadrant and right side of the abdomen. Patient has been n.p.o. for MRCP. PHYSICAL EXAMINATION: GENERAL: Temperature is 97.6, pulse is 72, blood pressure is 111/72, respiration 18, O2 saturation 100%. HEENT: Atraumatic, anicteric. NECK: Supple. HEART: S1, S2 heard. LUNGS: Bilateral air entry present. ABDOMEN: Soft. There was tenderness present in the right side of the abdomen and the right lower quadrant area. There is no rebound or guarding. EXTREMITIES: No edema. No cyanosis. LABORATORY DATA: Hemoglobin 11.1, hematocrit 32.4, WBC 5.4, and platelet 315. Potassium was 2.4; it is improved to 4.1. IMPRESSION: 1. Right-sided abdominal pain, nausea, vomiting. CT showed significant right colonic thickening and loop of the bowel in the lower abdomen. The etiology is unclear. Patient has significant tenderness in that area. the differential diagnosis include infectious versus inflammatory. 2. Gallstones and mildly elevated lipase level, pancreatic contour normal, common bile duct normal. Waiting for magnetic resonance cholangiopancreatography. Repeat the lipase levels. 3. History of cervical carcinoma status post loop electrosurgical excision procedure. 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 4. History of breast cancer status post bilateral mastectomy and prosthesis placement. The other comorbidities include severe hypokalemia, hypomagnesemia, being replaced. Patient does have a history of EtOH. The mild pancreatitis could also be related to that. Patient did have an endoscopy done last year, showed only gastritis and esophagitis. Patient has been scheduled for surgery for gallbladder, which would recommend to hold off till the MR is reviewed and further monitoring of the clinical course. Drew Conroy MD
[2017-11-17] MEDS: metroNIDAZOLE IV 500 mg/100 ml 500 MG/100 ML BAG IVPB SCH ×3 (05:09→21:54)
--- NOTE | 2017-11-17 06:39 | CP.PCM.PN ---
Subjective - Date & Time of Evaluation Date of Evaluation: 11/17/17 Time of Evaluation: 07:00 - Subjective Subjective: GI Progress Note for Cj Ardon PGY2 Patient seen and examined at bedside. Overnight patient vomited once as per nursing staff, but feels better. She reports having abdominal pain in the RUQ and RLQ of the abdomen that is constant and radiates up and down. She denies chest pain, shortness of breath, nausea/diarrhea, fever/chills, dysuria/ hematuria, numbness or tingling. Objective - Vital Signs/Intake and Output Vital Signs (last 24 hours): Temp Pulse Resp BP Pulse Ox 97.6 F 87 20 93/64 L 98 11/17/17 05:51 11/17/17 05:51 11/17/17 05:51 11/17/17 05:51 11/17/17 05:51 Intake and Output: 11/16/17 11/17/17 18:59 06:59 Intake Total 420 1950 Output Total 3 550 Balance 417 1400 - Medications Medications: Current Medications Heparin Sodium (Porcine) (Heparin) 5,000 units SC Q8 [facility] PRN Reason: Protocol Last Admin: 11/17/17 05:10 Dose: 5,000 units Levetiracetam (Keppra 500mg Ivpb) 500 mg in 100 mls @ 460 mls/hr IV Q12 [facility] Last Admin: 11/16/17 22:35 Dose: 460 mls/hr Valproate Sodium 750 mg/ (Sodium Chloride) 107.5 mls @ 100 mls/hr IVPB Q12H [facility] Last Admin: 11/17/17 00:06 Dose: 100 mls/hr Potassium Chloride 40 meq/ (Sodium Chloride) 1,020 mls @ 125 mls/hr IV .Q8H10M [facility] Last Admin: 11/17/17 02:27 Dose: Not Given Metronidazole (Flagyl) 500 mg in 100 mls @ 100 mls/hr IVPB Q8 [facility] PRN Reason: Protocol Last Admin: 11/17/17 05:09 Dose: 100 mls/hr Ceftriaxone Sodium (Rocephin 1 Gram Ivpb) 1 gm in 100 mls @ 100 mls/hr IVPB DAILY [facility] PRN Reason: Protocol Last Admin: 11/16/17 12:23 Dose: 100 mls/hr Lorazepam (Ativan) 2 mg IVP Q6H PRN; Protocol PRN Reason: Seizure activity Morphine Sulfate (Morphine) 2 mg IVP Q6H PRN PRN Reason: Pain, severe (8-10) Last Admin: 11/16/17 14:45 Dose: 2 mg Ondansetron HCl (Zofran Inj) 4 mg IVP Q6H PRN PRN Reason: Nausea/Vomiting Last Admin: 11/16/17 22:34 Dose: 4 mg Pantoprazole Sodium (Protonix Inj) 40 mg IVP DAILY [facility] Last Admin: 11/16/17 10:04 Dose: 40 mg - Labs Labs: 11/16/17 07:00 11/16/17 20:15 PT 11.6 SECONDS (9.4-12.5) 11/15/17 07:00 INR 1.01 (0.93-1.08) 11/15/17 07:00 APTT 29.5 Seconds (25.1-36.5) 11/15/17 07:00 - Constitutional Appears: No Acute Distress - Head Exam Head Exam: ATRAUMATIC, NORMAL INSPECTION, NORMOCEPHALIC - Eye Exam Eye Exam: Normal appearance, PERRL Pupil Exam: NORMAL ACCOMODATION - ENT Exam ENT Exam: Mucous Membranes Dry - Respiratory Exam Respiratory Exam: Clear to Ausculation Bilateral, NORMAL BREATHING PATTERN. absent: Rales, Rhonchi, Wheezes - Cardiovascular Exam Cardiovascular Exam: REGULAR RHYTHM, +S1, +S2. absent: Gallop, Rubs, Murmur - GI/Abdominal Exam GI & Abdominal Exam: Soft, Tenderness (RUQ/RLQ), Normal Bowel Sounds. absent: Rigid, Mass, Rebound - Extremities Exam Extremities Exam: Normal Inspection. absent: Calf Tenderness, Pedal Edema - Neurological Exam Neurological Exam: Alert, Awake, CN II-XII Intact - Psychiatric Exam Psychiatric exam: Normal Affect, Normal Mood - Skin Skin Exam: Dry, Normal Color, Warm Assessment and Plan - Assessment and Plan (Free Text) Assessment: This is a 36yo female with past medical history of breast ca s/p chemoradiation w/ mastectomy and breast implant, cervical dysplasia s/p LEEP, bipolar disorder , appendectomy, gallstones who is admitted for 1. Abdominal pain R sided - most likely secondary to colitis seen on CT - MRCP was negative 2. Hypokalemia (resolved) 3. Hypomagnesia (resolved) 4. Hx of breast ca 5. Hx of appendectomy 6. Hx of gallstones Plan: Possible plan for cholecystectomy as per surgery. Pain may be secondary to colitis. Continue IV antibiotics. Continue pain control. Continue PPI. Will discuss plan with PMD and surgery. If surgery not planned, will advance patient to clear liquid diet as tolerated. Case seen, discussed and reviewed with Dr. Conroy. Cj Cortes PGY2
[2017-11-17 07:02] LABS: BASO # 0.05 K/mm3 (0.0-2.0); BASO % 0.9 % (0.0-3.0); EOS # 0.1 (0.0-0.7); EOS % 2.4 % (1.5-5.0); GRAN # 3.26 (1.4-6.5); GRAN % 59.8 % (50.0-68.0); HEMOGLOBIN 12.2 g/dL (12.0-16.0); LYMPH # 1.6 (1.2-3.4); LYMPH % 30.1 % (22.0-35.0); MEAN CELL VOLUME 104.2 fl (80.0-105.0); MEAN CORPUSCULAR HEMOGLOBIN 34.6 pg (25.0-35.0); MEAN CORPUSCULAR HGB CONC 33.2 g/dl (31.0-37.0); MEAN PLATELET VOLUME 9.7 fl (7.0-11.0); MONO # 0.4 (0.1-0.6); MONO % 6.8 % (1.0-6.0); RBC 3.53 10^6/uL (3.5-6.1); RED CELL DISTRIBUTION WIDTH 15.2 % (11.5-14.5); WHITE BLOOD COUNT 5.5 10^3/ul (4.5-11.0)
[2017-11-17 07:04] LABS: ALB/GLOB RATIO 0.9 (1.1-1.8); ALBUMIN 2.4 g/dL (3.0-4.8); ALT/SGPT 27 U/L (7-56); AST/SGOT 40 U/L (14-36); CALCIUM 7.8 mg/dL (8.4-10.5); GFR AFRICAN-AMERICAN > 60; GFR NON-AFRICAN AMERICAN > 60
[2017-11-17 07:12] LABS: BLOOD UREA NITROGEN < 2 mg/dL (7-21)
--- NOTE | 2017-11-17 08:42 | PN ---
DATE: 11/16/2017 SUBJECTIVE: This patient was seen and evaluated earlier today. The patient is feeling slightly better. PHYSICAL EXAMINATION: VITAL SIGNS: Temperature is 97.7, pulse is 84, blood pressure is 105/75. HEENT: Atraumatic, anicteric. NECK: Supple. HEART: S1, Patient had LFTs normal IMPRESSION: abdominal pain, nausea, and vomiting. Patient has thickening of the right colon normal. LFT is normal. The etiology for the right side of the colon thickening is unclear. PLAN: Would recommend at this point to continue the antibiotics. We will await for the MRI to further evaluate. Surgical note by the resident noticed. Would discuss with the surgical team regarding holding of the surgery until the clinical picture is more clear. Thank you very much for allowing us to participate in the care of the patient. Drew Conroy MD
[2017-11-17] MEDS: Morphine 2 mg/ml ISec IVP PRN ×3 (08:52→23:02)
[2017-11-17] MEDS: cefTRIAXone 1 gm 1 GM/100 ML BAG IVPB SCH (09:04)
[2017-11-17] MEDS: levETIRAcetam 500mg IVPB 500 MG/100 ML BAG IV SCH ×2 (09:10→21:41)
--- NOTE | 2017-11-17 10:47 | RAD ---
HISTORY: pre-operative evaluation COMPARISON: 02/20/2017 FINDINGS: LUNGS: No active pulmonary disease. PLEURA: No significant pleural effusion identified, no pneumothorax apparent. CARDIOVASCULAR: Normal. OSSEOUS STRUCTURES: No significant abnormalities. VISUALIZED UPPER ABDOMEN: Normal. OTHER FINDINGS: None. IMPRESSION: No active disease.
--- NOTE | 2017-11-17 11:11 | CP.PCM.PN ---
<Kaushal Araya - Last Filed: 11/17/17 14:02> Subjective - Date & Time of Evaluation Date of Evaluation: 11/17/17 Time of Evaluation: 06:00 - Subjective Subjective: Patient seen and examined at bedside, states she has still the same RLQ pain however it is resolving slowly. Offers no other complaints at this time. Denies shortness of breath, chest pain, nausea, vomiting, diarrhea, headache, cough. Objective - Vital Signs/Intake and Output Vital Signs (last 24 hours): Temp Pulse Resp BP Pulse Ox 97.6 F 87 20 93/64 L 98 11/17/17 05:51 11/17/17 05:51 11/17/17 05:51 11/17/17 05:51 11/17/17 05:51 Intake and Output: 11/17/17 11/17/17 06:59 18:59 Intake Total 1950 Output Total 550 Balance 1400 - Medications Medications: Current Medications Heparin Sodium (Porcine) (Heparin) 5,000 units SC Q8 [facility] PRN Reason: Protocol Last Admin: 11/17/17 05:10 Dose: 5,000 units Levetiracetam (Keppra 500mg Ivpb) 500 mg in 100 mls @ 460 mls/hr IV Q12 [facility] Last Admin: 11/17/17 09:10 Dose: 460 mls/hr Valproate Sodium 750 mg/ (Sodium Chloride) 107.5 mls @ 100 mls/hr IVPB Q12H [facility] Last Admin: 11/17/17 00:06 Dose: 100 mls/hr Potassium Chloride 40 meq/ (Sodium Chloride) 1,020 mls @ 125 mls/hr IV .Q8H10M [facility] Last Admin: 11/17/17 02:27 Dose: Not Given Metronidazole (Flagyl) 500 mg in 100 mls @ 100 mls/hr IVPB Q8 [facility] PRN Reason: Protocol Last Admin: 11/17/17 05:09 Dose: 100 mls/hr Ceftriaxone Sodium (Rocephin 1 Gram Ivpb) 1 gm in 100 mls @ 100 mls/hr IVPB DAILY [facility] PRN Reason: Protocol Last Admin: 11/17/17 09:04 Dose: 100 mls/hr Lorazepam (Ativan) 2 mg IVP Q6H PRN; Protocol PRN Reason: Seizure activity Morphine Sulfate (Morphine) 2 mg IVP Q6H PRN PRN Reason: Pain, severe (8-10) Last Admin: 11/17/17 08:52 Dose: 2 mg Ondansetron HCl (Zofran Inj) 4 mg IVP Q6H PRN PRN Reason: Nausea/Vomiting Last Admin: 11/17/17 08:51 Dose: 4 mg Pantoprazole Sodium (Protonix Inj) 40 mg IVP DAILY [facility] Last Admin: 11/17/17 09:04 Dose: 40 mg - Labs Labs: 11/17/17 06:00 11/17/17 06:00 PT 11.6 SECONDS (9.4-12.5) 11/15/17 07:00 INR 1.01 (0.93-1.08) 11/15/17 07:00 APTT 29.5 Seconds (25.1-36.5) 11/15/17 07:00 - Head Exam Head Exam: ATRAUMATIC, NORMAL INSPECTION, NORMOCEPHALIC - Eye Exam Eye Exam: EOMI, Normal appearance - ENT Exam ENT Exam: Mucous Membranes Moist, Normal Exam - Respiratory Exam Respiratory Exam: Clear to Ausculation Bilateral, NORMAL BREATHING PATTERN - Cardiovascular Exam Cardiovascular Exam: REGULAR RHYTHM, +S1, +S2 - GI/Abdominal Exam GI & Abdominal Exam: Soft, Tenderness (RLQ), Normal Bowel Sounds - Extremities Exam Extremities Exam: Normal Inspection - Back Exam Back Exam: NORMAL INSPECTION - Neurological Exam Neurological Exam: Alert, Awake, Oriented x3 - Psychiatric Exam Psychiatric exam: Normal Affect, Normal Mood - Skin Skin Exam: Normal Color, Warm Assessment and Plan - Assessment and Plan (Free Text) Assessment: This is a 36 year old female with PMHx gallstone pancreatitis, seizure disorder , breast cancer s/p mastectomy, ovarian cancer s/p tumor resection x2, uterine cancer s/p hysterectomy who presents complaining of intractable nausea and vomiting as well as abdominal pain. Patient found to initially have hypokalemia with evidence of EKG changes. Since repletion of potassium EKGs were demonstrating normal sinus rhythm. Patient was thought to have pancreatitis due to cholelithiasis. Patient went for HIDA scan which was unremarkable. Patient is still experiencing electrolyte derangements which could be due to alcohol abuse. Plan: Abdominal pain -NPO -CT abdomen/Pelvis with IV contrast shows distended gallbladder with cholelithiasis -Gallbladder US ordered; reveals small calculi -HIDA is unremarkable -MRCP unremarkable -Continue with IVF@125 -GI consulted: Dr. Conroy; recommendations for treatment for suspected colitis -General surgery consulted; recommendations appreciated -Lipase downtrended -Monitor electrolytes and replete as needed -Continue with morphine for pain control -Patient's presentation is more consistent with enterocolitis. Cholecystectomy can be done as an elective procedure as outpatient. Does not need to be done at this moment. -Continue to monitor patient's progress. Leukocytosis -Resolved -Continue with Rocephin and Flagyl -WBC count normalized -Urinalysis negative for UTI Hypokalemia -Resolved -Most likely secondary to patient vomiting for a week as well as decreased PO intake and hypomagnesemia -Continue to monitor and replete electrolytes as needed -Monitor for EKG changes Seizure Disorder -Continue with Keppra 500 mg IV Q12 -Continue with Depakote 750 mg IV Q12 -Ativan PRN Tobacco Use Disorder -counseled on smoking cessation Prophylaxis -SCDs and Heparin -Protonix IV <Jona Salcido - Last Filed: 11/17/17 16:44> Objective - Vital Signs/Intake and Output Vital Signs (last 24 hours): Temp Pulse Resp BP Pulse Ox 97.4 F L 95 H 20 101/66 98 11/17/17 12:00 11/17/17 12:00 11/17/17 12:00 11/17/17 12:00 11/17/17 05:51 Intake and Output: 11/17/17 11/17/17 06:59 18:59 Intake Total 1950 390 Output Total 550 Balance 1400 390 - Medications Medications: Current Medications Heparin Sodium (Porcine) (Heparin) 5,000 units SC Q8 [facility] PRN Reason: Protocol Last Admin: 11/17/17 13:26 Dose: 5,000 units Levetiracetam (Keppra 500mg Ivpb) 500 mg in 100 mls @ 460 mls/hr IV Q12 [facility] Last Admin: 11/17/17 09:10 Dose: 460 mls/hr Valproate Sodium 750 mg/ (Sodium Chloride) 107.5 mls @ 100 mls/hr IVPB Q12H [facility] Last Admin: 11/17/17 14:31 Dose: 100 mls/hr Potassium Chloride 40 meq/ (Sodium Chloride) 1,020 mls @ 125 mls/hr IV .Q8H10M [facility] Last Admin: 11/17/17 11:16 Dose: 125 mls/hr Metronidazole (Flagyl) 500 mg in 100 mls @ 100 mls/hr IVPB Q8 [facility] PRN Reason: Protocol Last Admin: 11/17/17 13:26 Dose: 100 mls/hr Ceftriaxone Sodium (Rocephin 1 Gram Ivpb) 1 gm in 100 mls @ 100 mls/hr IVPB DAILY [facility] PRN Reason: Protocol Last Admin: 11/17/17 09:04 Dose: 100 mls/hr Magnesium 2 gm/50 ml NS (Magnesium Sulfate 2 Gm/50 Ml Ns) 2 gm in 50 mls @ 50 mls/hr IVPB ONCE ONE Stop: 11/17/17 17:36 Lorazepam (Ativan) 2 mg IVP Q6H PRN; Protocol PRN Reason: Seizure activity Morphine Sulfate (Morphine) 2 mg IVP Q6H PRN PRN Reason: Pain, severe (8-10) Last Admin: 11/17/17 08:52 Dose: 2 mg Ondansetron HCl (Zofran Inj) 4 mg IVP Q6H PRN PRN Reason: Nausea/Vomiting Last Admin: 11/17/17 08:51 Dose: 4 mg Pantoprazole Sodium (Protonix Inj) 40 mg IVP DAILY [facility] Last Admin: 11/17/17 09:04 Dose: 40 mg - Labs Labs: 11/17/17 06:00 11/17/17 06:00 PT 11.6 SECONDS (9.4-12.5) 11/15/17 07:00 INR 1.01 (0.93-1.08) 11/15/17 07:00 APTT 29.5 Seconds (25.1-36.5) 11/15/17 07:00 Attending/Attestation - Attestation I have personally seen and examined this patient.: Yes I have fully participated in the care of the patient.: Yes I have reviewed all pertinent clinical information, including history, physical exam and plan: Yes Notes (Text): 11/17/17 16:44 Medical record note made by the resident after discussion with my direction and input after the patient was personally seen and examined by me. I have reviewed the chart and agree that the record accurately reflects by personal performance of the history, physical exam, data review, and medical decision-making, in the course for the patient. I have also personally directed the plan of care.
--- NOTE | 2017-11-17 12:04 | CP.PCM.PN ---
Subjective - Date & Time of Evaluation Date of Evaluation: 11/17/17 Time of Evaluation: 12:02 - Subjective Subjective: General surgery progress note for Dr. Brenton Hale, PGY-1 Pt S & E at bedside with attending at 1130 Pt reports continued abdominal pain- epigastric & over right side. Is ambulating. Denies N & V. Objective - Vital Signs/Intake and Output Vital Signs (last 24 hours): Temp Pulse Resp BP Pulse Ox 97.4 F L 95 H 20 101/66 98 11/17/17 12:00 11/17/17 12:00 11/17/17 12:00 11/17/17 12:00 11/17/17 05:51 Intake and Output: 11/17/17 11/17/17 06:59 18:59 Intake Total 1950 Output Total 550 Balance 1400 - Medications Medications: Current Medications Heparin Sodium (Porcine) (Heparin) 5,000 units SC Q8 [facility] PRN Reason: Protocol Last Admin: 11/17/17 05:10 Dose: 5,000 units Levetiracetam (Keppra 500mg Ivpb) 500 mg in 100 mls @ 460 mls/hr IV Q12 [facility] Last Admin: 11/17/17 09:10 Dose: 460 mls/hr Valproate Sodium 750 mg/ (Sodium Chloride) 107.5 mls @ 100 mls/hr IVPB Q12H [facility] Last Admin: 11/17/17 00:06 Dose: 100 mls/hr Potassium Chloride 40 meq/ (Sodium Chloride) 1,020 mls @ 125 mls/hr IV .Q8H10M [facility] Last Admin: 11/17/17 11:16 Dose: 125 mls/hr Metronidazole (Flagyl) 500 mg in 100 mls @ 100 mls/hr IVPB Q8 [facility] PRN Reason: Protocol Last Admin: 11/17/17 05:09 Dose: 100 mls/hr Ceftriaxone Sodium (Rocephin 1 Gram Ivpb) 1 gm in 100 mls @ 100 mls/hr IVPB DAILY [facility] PRN Reason: Protocol Last Admin: 11/17/17 09:04 Dose: 100 mls/hr Lorazepam (Ativan) 2 mg IVP Q6H PRN; Protocol PRN Reason: Seizure activity Morphine Sulfate (Morphine) 2 mg IVP Q6H PRN PRN Reason: Pain, severe (8-10) Last Admin: 11/17/17 08:52 Dose: 2 mg Ondansetron HCl (Zofran Inj) 4 mg IVP Q6H PRN PRN Reason: Nausea/Vomiting Last Admin: 11/17/17 08:51 Dose: 4 mg Pantoprazole Sodium (Protonix Inj) 40 mg IVP DAILY [facility] Last Admin: 11/17/17 09:04 Dose: 40 mg - Labs Labs: 11/17/17 06:00 11/17/17 06:00 PT 11.6 SECONDS (9.4-12.5) 11/15/17 07:00 INR 1.01 (0.93-1.08) 11/15/17 07:00 APTT 29.5 Seconds (25.1-36.5) 11/15/17 07:00 - Constitutional Appears: Non-toxic, No Acute Distress - Head Exam Head Exam: ATRAUMATIC, NORMAL INSPECTION, NORMOCEPHALIC - Eye Exam Eye Exam: EOMI, Normal appearance - ENT Exam ENT Exam: Mucous Membranes Moist, Normal Exam - Neck Exam Neck Exam: Full ROM, Normal Inspection - Respiratory Exam Respiratory Exam: NORMAL BREATHING PATTERN - Cardiovascular Exam Cardiovascular Exam: REGULAR RHYTHM, +S1, +S2 - GI/Abdominal Exam GI & Abdominal Exam: Soft, Tenderness (epigastric- mild). absent: Distended, Guarding, Rigid - Extremities Exam Extremities Exam: Full ROM, Normal Inspection - Neurological Exam Neurological Exam: Alert, Awake, CN II-XII Intact, Oriented x3 - Psychiatric Exam Psychiatric exam: Normal Affect, Normal Mood - Skin Skin Exam: Dry, Intact, Normal Color, Warm Assessment and Plan - Assessment and Plan (Free Text) Assessment: 36F w/hx pancreatitis, consulted for cholelithasis- currently asymptomatic Plan: MRCP negative Ok to start CLD, advance to soft diet for dinner Anti-emetic PRN No surgical intervention at this time Elective cholecystectomy if symptomatic as outpatient pain likely from colitis Correct electrolytes PRN Further mgmt as per primary team Please re-consult as needed JOSEFA attending Alexia, PGY-1
[2017-11-17] MEDS ORDERED: Magnesium 2 gm/50 ml NS 2 GM/50 ML BAG IVPB ONE (16:37)
--- NOTE | 2017-11-17 21:16 | PN ---
DATE: 11/17/2017 SUBJECTIVE: Paradise Marrero is seen over the last 3 days. The charts are reviewed. She presented with abdominal pain. MRCP is normal, as is the HIDA scan. There is a CAT scan done on admission on 11/14/2017, which shows inflammation of the cecum, consistent with inflammation there. The patient was seen by Dr. Conroy. In any case, the patient has no pain, the abdomen is soft and nontender, and as per GI, we will hold off doing the evaluation of the gallbladder. This eventually might be necessary, but as far now, no. I will follow peripherally. Please re-call if necessary. Franklin Mascorro MD
[2017-11-17 21:26] VITALS: O2SAT 100
[2017-11-18] MEDS: Valproate 750 MG in Sodium Chloride 0.9% 100 ML IVPB SCH ×2 (00:12→13:10)
[2017-11-18] MEDS: metroNIDAZOLE IV 500 mg/100 ml 500 MG/100 ML BAG IVPB SCH ×3 (05:38→21:41)
[2017-11-18 06:57] LABS: BASO # 0.05 K/mm3 (0.0-2.0); BASO % 1.6 % (0.0-3.0); EOS # 0.2 (0.0-0.7); EOS % 5.8 % (1.5-5.0); GRAN # 1.19 (1.4-6.5); GRAN % 38.4 % (50.0-68.0); HEMOGLOBIN 10.6 g/dL (12.0-16.0); LYMPH # 1.4 (1.2-3.4); LYMPH % 45.8 % (22.0-35.0); MEAN CORPUSCULAR HGB CONC 33.7 g/dl (31.0-37.0); MONO # 0.3 (0.1-0.6); MONO % 8.4 % (1.0-6.0); RBC 3.03 10^6/uL (3.5-6.1); RED CELL DISTRIBUTION WIDTH 15.4 % (11.5-14.5); WHITE BLOOD COUNT 3.1 10^3/ul (4.5-11.0)
--- NOTE | 2017-11-18 07:15 | CP.PCM.PN ---
Subjective - Date & Time of Evaluation Date of Evaluation: 11/18/17 Time of Evaluation: 07:11 - Subjective Subjective: Patient seen and examined at bedside. States her pain is improving however still present. Discussed with patient her follow up s/p tumor resection. Patient states she has not followed up with any oncologists. Has an extensive family history of cancer. When patient has breast cancer, she never received chemotherapy because she did not like how it made her feel. When found to have uterine cancer which her mother also had, patient elected to not get her uterus removed in hopes of having more children in the future. As mentioned in previous charts patient also has had cervical cancer for which she had a leep procedure done. Patient's cancers were all taken care of by a former food and beverage operations manager who patient states no longer practices gynecology but now plastic surgery. She currently follows up with OBGYN Dr. Luna. Objective - Vital Signs/Intake and Output Vital Signs (last 24 hours): Temp Pulse Resp BP Pulse Ox 97.7 F 93 H 20 109/65 100 11/17/17 21:25 11/17/17 21:25 11/17/17 21:25 11/17/17 21:25 11/17/17 21:25 Intake and Output: 11/18/17 11/18/17 06:59 18:59 Intake Total 2120 Balance 2120 - Medications Medications: Current Medications Heparin Sodium (Porcine) (Heparin) 5,000 units SC Q8 [facility] PRN Reason: Protocol Last Admin: 11/18/17 05:38 Dose: 5,000 units Levetiracetam (Keppra 500mg Ivpb) 500 mg in 100 mls @ 460 mls/hr IV Q12 [facility] Last Admin: 11/17/17 21:41 Dose: 460 mls/hr Valproate Sodium 750 mg/ (Sodium Chloride) 107.5 mls @ 100 mls/hr IVPB Q12H [facility] Last Admin: 11/18/17 00:12 Dose: 100 mls/hr Potassium Chloride 40 meq/ (Sodium Chloride) 1,020 mls @ 125 mls/hr IV .Q8H10M [facility] Last Admin: 11/17/17 23:22 Dose: 125 mls/hr Metronidazole (Flagyl) 500 mg in 100 mls @ 100 mls/hr IVPB Q8 [facility] PRN Reason: Protocol Last Admin: 11/18/17 05:38 Dose: 100 mls/hr Ceftriaxone Sodium (Rocephin 1 Gram Ivpb) 1 gm in 100 mls @ 100 mls/hr IVPB DAILY [facility] PRN Reason: Protocol Last Admin: 11/17/17 09:04 Dose: 100 mls/hr Lorazepam (Ativan) 2 mg IVP Q6H PRN; Protocol PRN Reason: Seizure activity Magnesium Oxide (Mag-Ox) 400 mg PO BID [facility] Morphine Sulfate (Morphine) 2 mg IVP Q6H PRN PRN Reason: Pain, severe (8-10) Last Admin: 11/17/17 23:02 Dose: 2 mg Ondansetron HCl (Zofran Inj) 4 mg IVP Q6H PRN PRN Reason: Nausea/Vomiting Last Admin: 11/17/17 23:02 Dose: 4 mg Pantoprazole Sodium (Protonix Inj) 40 mg IVP DAILY [facility] Last Admin: 11/17/17 09:04 Dose: 40 mg - Labs Labs: 11/17/17 06:00 11/17/17 06:00 PT 11.6 SECONDS (9.4-12.5) 11/15/17 07:00 INR 1.01 (0.93-1.08) 11/15/17 07:00 APTT 29.5 Seconds (25.1-36.5) 11/15/17 07:00 - Head Exam Head Exam: ATRAUMATIC, NORMAL INSPECTION, NORMOCEPHALIC - Eye Exam Eye Exam: EOMI, Normal appearance - ENT Exam ENT Exam: Mucous Membranes Moist, Normal Exam - Neck Exam Neck Exam: Full ROM - Respiratory Exam Respiratory Exam: Clear to Ausculation Bilateral, NORMAL BREATHING PATTERN. absent: Rhonchi, Wheezes - Cardiovascular Exam Cardiovascular Exam: REGULAR RHYTHM, +S1, +S2 - GI/Abdominal Exam GI & Abdominal Exam: Soft, Normal Bowel Sounds - Extremities Exam Extremities Exam: Full ROM, Normal Inspection. absent: Tenderness (numbness b/l ) - Back Exam Back Exam: NORMAL INSPECTION - Neurological Exam Neurological Exam: Alert, Awake, Oriented x3 - Psychiatric Exam Psychiatric exam: Normal Affect, Normal Mood - Skin Skin Exam: Normal Color, Warm Assessment and Plan - Assessment and Plan (Free Text) Assessment: This is a 36 year old female with PMHx gallstone pancreatitis, seizure disorder , breast cancer s/p mastectomy, ovarian cancer s/p tumor resection x2, uterine cancer s/p hysterectomy who presents complaining of intractable nausea and vomiting as well as abdominal pain. Patient found to initially have hypokalemia with evidence of EKG changes. Since repletion of potassium EKGs were demonstrating normal sinus rhythm. Patient was thought to have pancreatitis due to cholelithiasis. Patient went for HIDA scan which was unremarkable. Patient is still experiencing electrolyte derangements which could be due to alcohol abuse. Plan: Abdominal pain -NPO -CT abdomen/Pelvis with IV contrast shows distended gallbladder with cholelithiasis -Gallbladder US ordered; reveals small calculi -HIDA is unremarkable -MRCP unremarkable -Continue with IVF@125 -GI consulted: Dr. Conroy; recommendations for treatment for colitis -General surgery consulted; recommendations appreciated -Lipase downtrended -Monitor electrolytes and replete as needed -Continue with morphine for pain control -Patient's presentation is more consistent with enterocolitis. Cholecystectomy can be done as an elective procedure as outpatient. Will not be done at this moment. -Continue to monitor patient's progress. Neutropenia -Will switch from rocephin to levaquin Leukocytosis -Resolved -Continue with Levaquin and Flagyl -WBC count normalized -Urinalysis negative for UTI Hypokalemia -Resolved -Most likely secondary to patient vomiting for a week as well as decreased PO intake and hypomagnesemia -Continue to monitor and replete electrolytes as needed -Monitor for EKG changes Hypomagnesemia -Monitor mag levels, replete as needed -Magnesium Oxide BID daily Seizure Disorder -Continue with Keppra 500 mg IV Q12 -Continue with Depakote 750 mg IV Q12 -Ativan PRN Tobacco Use Disorder -counseled on smoking cessation Prophylaxis -SCDs and Heparin -Protonix IV
[2017-11-18] MEDS ORDERED: Magnesium 2 gm/50 ml NS 2 GM/50 ML BAG IVPB ONE (07:21)
[2017-11-18 07:23] LABS: ALB/GLOB RATIO 0.8 (1.1-1.8); ALBUMIN 1.9 g/dL (3.0-4.8); ALT/SGPT 25 U/L (7-56); AST/SGOT 34 U/L (14-36); BLOOD UREA NITROGEN < 2 mg/dL (7-21); CALCIUM 7.5 mg/dL (8.4-10.5); GFR AFRICAN-AMERICAN > 60; GFR NON-AFRICAN AMERICAN > 60
[2017-11-18] MEDS ORDERED: Potassium & Sodium Phosphate PO ONE (07:59)
--- NOTE | 2017-11-18 08:11 | CP.PCM.PN ---
<Karen Cortes - Last Filed: 11/18/17 09:53> Subjective - Date & Time of Evaluation Date of Evaluation: 11/18/17 Time of Evaluation: 07:00 - Subjective Subjective: GI Progress Note for Cj Ardon PGY2 Patient seen and examined at bedside. Overnight patient needed Seroquel to sleep as per nursing staff. Patient reports sleeping well and did not have any nausea or vomiting overnight. She reports her abdominal pain has slightly improved. She denies chest pain, shortness of breath, diarrhea, fever/chills, numbness/tingling, dysuria or hematuria. Objective - Vital Signs/Intake and Output Vital Signs (last 24 hours): Temp Pulse Resp BP Pulse Ox 97.6 F 80 18 94/57 L 100 11/18/17 06:00 11/18/17 06:00 11/18/17 06:00 11/18/17 06:00 11/18/17 06:00 Intake and Output: 11/18/17 11/18/17 06:59 18:59 Intake Total 2120 Balance 2120 - Medications Medications: Current Medications Heparin Sodium (Porcine) (Heparin) 5,000 units SC Q8 [facility] PRN Reason: Protocol Last Admin: 11/18/17 05:38 Dose: 5,000 units Levetiracetam (Keppra 500mg Ivpb) 500 mg in 100 mls @ 460 mls/hr IV Q12 [facility] Last Admin: 11/17/17 21:41 Dose: 460 mls/hr Valproate Sodium 750 mg/ (Sodium Chloride) 107.5 mls @ 100 mls/hr IVPB Q12H [facility] Last Admin: 11/18/17 00:12 Dose: 100 mls/hr Potassium Chloride 40 meq/ (Sodium Chloride) 1,020 mls @ 125 mls/hr IV .Q8H10M [facility] Last Admin: 11/17/17 23:22 Dose: 125 mls/hr Metronidazole (Flagyl) 500 mg in 100 mls @ 100 mls/hr IVPB Q8 [facility] PRN Reason: Protocol Last Admin: 11/18/17 05:38 Dose: 100 mls/hr Ceftriaxone Sodium (Rocephin 1 Gram Ivpb) 1 gm in 100 mls @ 100 mls/hr IVPB DAILY [facility] PRN Reason: Protocol Last Admin: 11/17/17 09:04 Dose: 100 mls/hr Magnesium 2 gm/50 ml NS (Magnesium Sulfate 2 Gm/50 Ml Ns) 2 gm in 50 mls @ 50 mls/hr IVPB ONCE ONE Stop: 11/18/17 08:20 Lorazepam (Ativan) 2 mg IVP Q6H PRN; Protocol PRN Reason: Seizure activity Magnesium Oxide (Mag-Ox) 400 mg PO BID [facility] Morphine Sulfate (Morphine) 2 mg IVP Q6H PRN PRN Reason: Pain, severe (8-10) Last Admin: 11/17/17 23:02 Dose: 2 mg Ondansetron HCl (Zofran Inj) 4 mg IVP Q6H PRN PRN Reason: Nausea/Vomiting Last Admin: 11/17/17 23:02 Dose: 4 mg Pantoprazole Sodium (Protonix Inj) 40 mg IVP DAILY [facility] Last Admin: 11/17/17 09:04 Dose: 40 mg - Labs Labs: 11/18/17 06:30 11/18/17 06:30 PT 11.6 SECONDS (9.4-12.5) 11/15/17 07:00 INR 1.01 (0.93-1.08) 11/15/17 07:00 APTT 29.5 Seconds (25.1-36.5) 11/15/17 07:00 - Constitutional Appears: No Acute Distress - Head Exam Head Exam: ATRAUMATIC, NORMAL INSPECTION, NORMOCEPHALIC - Eye Exam Eye Exam: Normal appearance, PERRL Pupil Exam: NORMAL ACCOMODATION - ENT Exam ENT Exam: Mucous Membranes Moist - Respiratory Exam Respiratory Exam: Clear to Ausculation Bilateral, NORMAL BREATHING PATTERN. absent: Rales, Rhonchi, Wheezes - Cardiovascular Exam Cardiovascular Exam: REGULAR RHYTHM, +S1, +S2. absent: Gallop, Rubs, Murmur - GI/Abdominal Exam GI & Abdominal Exam: Soft, Tenderness (RUQ/RLQ), Normal Bowel Sounds. absent: Rigid, Mass, Rebound - Extremities Exam Extremities Exam: Normal Inspection. absent: Calf Tenderness, Pedal Edema - Neurological Exam Neurological Exam: Alert, Awake, CN II-XII Intact - Skin Skin Exam: Dry, Warm Assessment and Plan - Assessment and Plan (Free Text) Assessment: This is a 36yo female with past medical history of breast ca s/p chemoradiation w/ mastectomy and breast implant, cervical dysplasia s/p LEEP, bipolar disorder , appendectomy, gallstones who is admitted for 1. Abdominal pain R sided - most likely secondary to colitis seen on CT - MRCP was negative 2. Hypomagnesia (resolved) 3. Hx of breast ca 4. Hx of appendectomy 5. Hx of gallstones 6. Hx of Bipolar disorder Plan: Advance diet as tolerated. Continue antibiotics. Surgery is on consult. Continue PPI and pain control. Patient has R sided colitis which can be concerning for inflammatory cause since patient is young. Recommend patient to follow up as outpatient for colonoscopy. Case seen, discussed and reviewed with Dr. Conroy. Cj Cortes PGY2 <Drew Conroy V - Last Filed: 11/18/17 23:03> Objective - Vital Signs/Intake and Output Vital Signs (last 24 hours): Temp Pulse Resp BP Pulse Ox 98.1 F 83 20 104/69 100 11/18/17 22:19 11/18/17 22:19 11/18/17 22:19 11/18/17 22:19 11/18/17 22:19 Intake and Output: 11/18/17 11/19/17 18:59 06:59 Intake Total 640 620 Output Total 3 Balance 640 617 - Medications Medications: Current Medications Heparin Sodium (Porcine) (Heparin) 5,000 units SC Q8 [facility] PRN Reason: Protocol Last Admin: 11/18/17 21:41 Dose: 5,000 units Levetiracetam (Keppra 500mg Ivpb) 500 mg in 100 mls @ 460 mls/hr IV Q12 [facility] Last Admin: 11/18/17 22:42 Dose: 460 mls/hr Valproate Sodium 750 mg/ (Sodium Chloride) 107.5 mls @ 100 mls/hr IVPB Q12H [facility] Last Admin: 11/18/17 13:10 Dose: 100 mls/hr Potassium Chloride 40 meq/ (Sodium Chloride) 1,020 mls @ 125 mls/hr IV .Q8H10M [facility] Last Admin: 11/18/17 13:12 Dose: 125 mls/hr Metronidazole (Flagyl) 500 mg in 100 mls @ 100 mls/hr IVPB Q8 [facility] PRN Reason: Protocol Last Admin: 11/18/17 21:41 Dose: 100 mls/hr Levofloxacin/Dextrose (Levaquin 500mg) 500 mg in 100 mls @ 100 mls/hr IVPB DAILY [facility] PRN Reason: Protocol Last Admin: 11/18/17 16:21 Dose: 100 mls/hr Lorazepam (Ativan) 2 mg IVP Q6H PRN; Protocol PRN Reason: Seizure activity Magnesium Oxide (Mag-Ox) 400 mg PO BID [facility] Last Admin: 11/18/17 17:07 Dose: 400 mg Morphine Sulfate (Morphine) 2 mg IVP Q6H PRN PRN Reason: Pain, severe (8-10) Last Admin: 11/18/17 19:57 Dose: 2 mg Ondansetron HCl (Zofran Inj) 4 mg IVP Q6H PRN PRN Reason: Nausea/Vomiting Last Admin: 11/18/17 19:57 Dose: 4 mg Pantoprazole Sodium (Protonix Inj) 40 mg IVP DAILY [facility] Last Admin: 11/18/17 09:21 Dose: 40 mg Ursodiol (Actigall) 300 mg PO BID [facility] Last Admin: 11/18/17 17:07 Dose: 300 mg - Labs Labs: 11/18/17 06:30 11/18/17 06:30 PT 11.6 SECONDS (9.4-12.5) 11/15/17 07:00 INR 1.01 (0.93-1.08) 11/15/17 07:00 APTT 29.5 Seconds (25.1-36.5) 11/15/17 07:00 Attending/Attestation - Attestation I have personally seen and examined this patient.: Yes I have fully participated in the care of the patient.: Yes I have reviewed all pertinent clinical information, including history, physical exam and plan: Yes Notes (Text): This is an addendum to GI progress report dictated by the [employer].The patient was seen and examined earlier. Medical records, lab studies, imagings were reviewed. Last 24 hours events reviewed. Agreed with the above treatment plan as outlined in [employer] 's notes the with the addition of the following feels better Diet has been advanced tolerating On examination she has tenderness right-sided abdominal especially lower The likely cause of the lower abdominal pain probably secondary to colitis Complete at 10-14 days course of antibiotics Elective colonoscopy 11/18/17 22:53
[2017-11-18] MEDS: cefTRIAXone 1 gm 1 GM/100 ML BAG IVPB SCH (09:19)
[2017-11-18] MEDS: levETIRAcetam 500mg IVPB 500 MG/100 ML BAG IV SCH ×2 (09:20→22:42)
[2017-11-18] MEDS: Magnesium Oxide 400 mg Tab UD PO SCH ×2 (09:20→17:07)
[2017-11-18] MEDS: Morphine 2 mg/ml ISec IVP PRN ×2 (09:21→19:57)
[2017-11-18] MEDS: levoFLOXacin 500 mg in D5W 500 MG/100 ML BAG IVPB SCH (16:21)
[2017-11-19] MEDS: Valproate 750 MG in Sodium Chloride 0.9% 100 ML IVPB SCH ×2 (00:04→13:42)
[2017-11-19] MEDS: metroNIDAZOLE IV 500 mg/100 ml 500 MG/100 ML BAG IVPB SCH ×2 (05:48→14:38)
[2017-11-19 07:32] LABS: ALB/GLOB RATIO 0.9 (1.1-1.8); ALBUMIN 2.1 g/dL (3.0-4.8); ALT/SGPT 32 U/L (7-56); AST/SGOT 39 U/L (14-36); BLOOD UREA NITROGEN < 2 mg/dL (7-21); CALCIUM 8.4 mg/dL (8.4-10.5); GFR AFRICAN-AMERICAN > 60; GFR NON-AFRICAN AMERICAN > 60
[2017-11-19 07:36] LABS: BASO # 0.04 K/mm3 (0.0-2.0); BASO % 1.2 % (0.0-3.0); EOS # 0.1 (0.0-0.7); EOS % 3.9 % (1.5-5.0); GRAN # 1.39 (1.4-6.5); GRAN % 41.8 % (50.0-68.0); HEMOGLOBIN 11.2 g/dL (12.0-16.0); LYMPH # 1.4 (1.2-3.4); LYMPH % 41.1 % (22.0-35.0); MEAN CELL VOLUME 104.1 fl (80.0-105.0); MEAN CORPUSCULAR HEMOGLOBIN 35.3 pg (25.0-35.0); MEAN CORPUSCULAR HGB CONC 33.9 g/dl (31.0-37.0); MEAN PLATELET VOLUME 9.9 fl (7.0-11.0); MONO # 0.4 (0.1-0.6); RBC 3.17 10^6/uL (3.5-6.1); RED CELL DISTRIBUTION WIDTH 15.4 % (11.5-14.5); WHITE BLOOD COUNT 3.3 10^3/ul (4.5-11.0)
[2017-11-19 08:17] VITALS: BP 102/58; PULSE 72; RESP 18; TEMP 97.8
[2017-11-19] MEDS ORDERED: Magnesium 2 gm/50 ml NS 2 GM/50 ML BAG IVPB ONE (09:02)
[2017-11-19] MEDS ORDERED: Magnesium Sulfate 2 gm/50 ml 2 GM/50 ML BAG IVPB ONE (09:05)
[2017-11-19] MEDS: levETIRAcetam 500mg IVPB 500 MG/100 ML BAG IV SCH (09:35)
[2017-11-19] MEDS: levoFLOXacin 500 mg in D5W 500 MG/100 ML BAG IVPB SCH (09:35)
[2017-11-19] MEDS: Magnesium Oxide 400 mg Tab UD PO SCH (09:35)
[2017-11-19] MEDS: Morphine 2 mg/ml ISec IVP PRN (09:40)
[2017-11-19] MEDS ORDERED: POLYETHYLENE GLYCOL 3350 17 GM/Dose PACKET PO SCH (10:30)
--- NOTE | 2017-11-19 10:49 | CP.PCM.PN ---
<Jennifer Dominguez - Last Filed: 11/19/17 10:49> Subjective - Date & Time of Evaluation Date of Evaluation: 11/19/17 Time of Evaluation: 09:45 - Subjective Subjective: Seen and examined at the bedside this morning, chart reviewed. Patient abdominal pain improved but still gets occasional discomfort. No reports of nausea or vomiting. No BM since admission per patient. Patient says she feels swollen contributing it to IVF, no edema noted to lower extremities. Passing urine, no dysuria or hematuria. Tolerating oral intake, eats slowly. Objective - Vital Signs/Intake and Output Vital Signs (last 24 hours): Temp Pulse Resp BP Pulse Ox 97.8 F 72 18 102/58 L 100 11/19/17 06:00 11/19/17 06:00 11/19/17 06:00 11/19/17 06:00 11/19/17 06:00 Intake and Output: 11/19/17 11/19/17 06:59 18:59 Intake Total 3560 Output Total 3 Balance 3557 - Medications Medications: Current Medications Heparin Sodium (Porcine) (Heparin) 5,000 units SC Q8 LISA PRN Reason: Protocol Last Admin: 11/19/17 05:49 Dose: 5,000 units Levetiracetam (Keppra 500mg Ivpb) 500 mg in 100 mls @ 460 mls/hr IV Q12 [facility] Last Admin: 11/19/17 09:35 Dose: 460 mls/hr Valproate Sodium 750 mg/ (Sodium Chloride) 107.5 mls @ 100 mls/hr IVPB Q12H [facility] Last Admin: 11/19/17 00:04 Dose: 100 mls/hr Potassium Chloride 40 meq/ (Sodium Chloride) 1,020 mls @ 125 mls/hr IV .Q8H10M [facility] Last Admin: 11/18/17 23:10 Dose: 125 mls/hr Metronidazole (Flagyl) 500 mg in 100 mls @ 100 mls/hr IVPB Q8 LISA PRN Reason: Protocol Last Admin: 11/19/17 05:48 Dose: 100 mls/hr Levofloxacin/Dextrose (Levaquin 500mg) 500 mg in 100 mls @ 100 mls/hr IVPB DAILY LISA PRN Reason: Protocol Last Admin: 11/19/17 09:35 Dose: 100 mls/hr Lorazepam (Ativan) 2 mg IVP Q6H PRN; Protocol PRN Reason: Seizure activity Magnesium Oxide (Mag-Ox) 400 mg PO BID [facility] Last Admin: 11/19/17 09:35 Dose: 400 mg Morphine Sulfate (Morphine) 2 mg IVP Q6H PRN PRN Reason: Pain, severe (8-10) Last Admin: 11/19/17 09:40 Dose: 2 mg Ondansetron HCl (Zofran Inj) 4 mg IVP Q6H PRN PRN Reason: Nausea/Vomiting Last Admin: 11/19/17 09:40 Dose: 4 mg Pantoprazole Sodium (Protonix Inj) 40 mg IVP DAILY [facility] Last Admin: 11/19/17 09:34 Dose: 40 mg Ursodiol (Actigall) 300 mg PO BID [facility] Last Admin: 11/19/17 09:35 Dose: 300 mg - Labs Labs: 11/19/17 07:00 11/19/17 07:03 PT 11.6 SECONDS (9.4-12.5) 11/15/17 07:00 INR 1.01 (0.93-1.08) 11/15/17 07:00 APTT 29.5 Seconds (25.1-36.5) 11/15/17 07:00 - Constitutional Appears: No Acute Distress - Head Exam Head Exam: NORMOCEPHALIC - Eye Exam Eye Exam: Normal appearance. absent: Scleral icterus - ENT Exam ENT Exam: Mucous Membranes Moist - Neck Exam Neck Exam: Normal Inspection - Respiratory Exam Respiratory Exam: NORMAL BREATHING PATTERN. absent: Respiratory Distress - Cardiovascular Exam Cardiovascular Exam: +S1, +S2 - GI/Abdominal Exam GI & Abdominal Exam: Soft, Normal Bowel Sounds. absent: Guarding, Tenderness, Organomegaly, Rebound - Extremities Exam Extremities Exam: absent: Calf Tenderness, Pedal Edema - Neurological Exam Neurological Exam: Alert, Awake, Oriented x3 - Skin Skin Exam: Dry, Warm Assessment and Plan - Assessment and Plan (Free Text) Assessment: Assessment: Abdominal pain R sided - most likely secondary to colitis seen on CT - MRCP was negative Hypomagnesia (resolved) Hx of breast ca Hx of appendectomy Hx of gallstones Hx of Bipolar disorder Plan: continue diet as tolerated,recommend low fat soft diet Continue antibiotics Continue PPI, on protonix continue Urosodiol give Miralax, no BM since admission Patient has R sided colitis which can be concerning for inflammatory cause since patient is young. Recommend patient to follow up as outpatient for colonoscopy, discuss w/ patient on discharge, also recommend to DC on Actigall and PPI with outpt GI Seen and discussed with Dr. Conroy. <Drew Conroy V - Last Filed: 11/20/17 00:04> Objective - Vital Signs/Intake and Output Vital Signs (last 24 hours): Temp Pulse Resp BP Pulse Ox 97.8 F 72 18 102/58 L 100 11/19/17 06:00 11/19/17 06:00 11/19/17 06:00 11/19/17 06:00 11/19/17 06:00 - Labs Labs: 11/19/17 07:00 11/19/17 07:03 PT 11.6 SECONDS (9.4-12.5) 11/15/17 07:00 INR 1.01 (0.93-1.08) 11/15/17 07:00 APTT 29.5 Seconds (25.1-36.5) 11/15/17 07:00 Attending/Attestation - Attestation I have personally seen and examined this patient.: Yes I have fully participated in the care of the patient.: Yes I have reviewed all pertinent clinical information, including history, physical exam and plan: Yes Notes (Text): This is an addendum to GI progress report dictated by the Ocular Pathologist.The patient was seen and examined earlier. Medical records, lab studies, imagings were reviewed. Last 24 hours events reviewed. Agreed with the above treatment plan as outlined in Ocular Pathologist 's notes the with the addition of the following 11/20/17 00:04
--- NOTE | 2017-11-19 12:43 | CP.PCM.DIS ---
Provider - Provider Date of Admission: 11/14/17 23:22 Attending physician: Jona Salcido MD Primary care physician: Oliver Cooper MD [facility] - Lab Results Lab Results: Most Recent Lab Values WBC 3.3 10^3/ul (4.5-11.0) L 11/19/17 07:00 RBC 3.17 10^6/uL (3.5-6.1) L 11/19/17 07:00 Hgb 11.2 g/dL (12.0-16.0) L 11/19/17 07:00 Hct 33.0 % (36.0-48.0) L 11/19/17 07:00 MCV 104.1 fl (80.0-105.0) 11/19/17 07:00 MCH 35.3 pg (25.0-35.0) H 11/19/17 07:00 MCHC 33.9 g/dl (31.0-37.0) 11/19/17 07:00 RDW 15.4 % (11.5-14.5) H 11/19/17 07:00 Plt Count 244 10^3/uL (120.0-450.0) 11/19/17 07:00 MPV 9.9 fl (7.0-11.0) 11/19/17 07:00 Gran % 41.8 % (50.0-68.0) L 11/19/17 07:00 Lymph % (Auto) 41.1 % (22.0-35.0) H 11/19/17 07:00 Mckinley % (Auto) 12.0 % (1.0-6.0) H 11/19/17 07:00 Eos % (Auto) 3.9 % (1.5-5.0) 11/19/17 07:00 Baso % (Auto) 1.2 % (0.0-3.0) 11/19/17 07:00 Gran # 1.39 (1.4-6.5) L 11/19/17 07:00 Lymph # (Auto) 1.4 (1.2-3.4) 11/19/17 07:00 [place]ck[place] # (Auto) 0.4 (0.1-0.6) 11/19/17 07:00 Eos # (Auto) 0.1 (0.0-0.7) 11/19/17 07:00 Baso # (Auto) 0.04 K/mm3 (0.0-2.0) 11/19/17 07:00 PT 11.6 SECONDS (9.4-12.5) 11/15/17 07:00 INR 1.01 (0.93-1.08) 11/15/17 07:00 APTT 29.5 Seconds (25.1-36.5) 11/15/17 07:00 Sodium 133 mmol/L (132-148) 11/19/17 07:03 Potassium 4.6 mmol/L (3.6-5.0) 11/19/17 07:03 Chloride 101 mmol/L (98-107) 11/19/17 07:03 Carbon Dioxide 25 mmol/L (21-33) 11/19/17 07:03 Anion Gap 12 (10-20) 11/19/17 07:03 BUN < 2 mg/dL (7-21) L 11/19/17 07:03 Creatinine 0.4 mg/dl (0.7-1.2) L 11/19/17 07:03 Est GFR ( Amer) > 60 11/19/17 07:03 Est GFR (Non-Af Amer) > 60 11/19/17 07:03 Random Glucose 83 mg/dL (70-110) 11/19/17 07:03 Hemoglobin A1c 4.9 % (4.2-6.5) 11/15/17 07:00 Calcium 8.4 mg/dL (8.4-10.5) 11/19/17 07:03 Phosphorus 2.7 mg/dL (2.5-4.5) 11/19/17 07:03 Magnesium 1.4 mg/dL (1.7-2.2) L 11/19/17 07:03 Total Bilirubin < 0.1 mg/dL (0.2-1.3) L 11/19/17 07:03 AST 39 U/L (14-36) H 11/19/17 07:03 ALT 32 U/L (7-56) 11/19/17 07:03 Alkaline Phosphatase 83 U/L (38-126) 11/19/17 07:03 Lactate Dehydrogenase 603 U/L (333-699) 11/14/17 22:11 Total Creatine Kinase 48 U/L (35-230) 11/14/17 22:11 Troponin I 0.02 ng/mL 11/15/17 17:00 Total Protein 4.5 g/dL (5.8-8.3) L 11/19/17 07:03 Albumin 2.1 g/dL (3.0-4.8) L 11/19/17 07:03 Globulin 2.4 gm/dL 11/19/17 07:03 Albumin/Globulin Ratio 0.9 (1.1-1.8) L 11/19/17 07:03 Amylase 90 U/L (35-125) 11/15/17 07:00 Lipase 249 U/L (23-300) 11/16/17 07:00 Procalcitonin 0.16 NG/ML (0.19-0.49) L 11/15/17 08:00 Urine Color Straw (YELLOW) 11/16/17 19:00 Urine Appearance Clear (CLEAR) 11/16/17 19:00 Urine pH 6.0 (4.7-8.0) 11/16/17 19:00 Ur Specific [place] <= 1.005 (1.005-1.035) 11/16/17 19:00 Urine Protein Negative mg/dL (<30 mg/dL) 11/16/17 19:00 Urine Glucose (UA) Negative mg/dL (NEGATIVE) 11/16/17 19:00 Urine Ketones Negative mg/dL (NEGATIVE) 11/16/17 19:00 Urine Blood Negative (NEGATIVE) 11/16/17 19:00 Urine Nitrate Negative (NEGATIVE) 11/16/17 19:00 Urine Bilirubin Negative (NEGATIVE) 11/16/17 19:00 Urine Urobilinogen 0.2 E.U./dL (<1 E.U./dL) 11/16/17 19:00 Ur Leukocyte Esterase Negative An/uL (NEGATIVE) 11/16/17 19:00 Discharge Exam - Head Exam Head Exam: NORMOCEPHALIC Discharge Plan - Discharge Medications Prescriptions: Divalproex [Depakote ER] 750 mg PO DAILY #14 ter Levofloxacin [Levaquin] 500 mg PO DAILY #9 tablet Magnesium Oxide [Mag-Ox] 400 mg PO TID #15 tab Metronidazole [Flagyl] 500 mg PO Q8H #27 tablet Pantoprazole Sodium [Protonix] 40 mg PO DAILY #14 ect QUEtiapine [Seroquel] 300 mg PO HS #10 tab Ursodiol [Actigall] 300 mg PO BID #28 cap - Follow Up Plan Condition: FAIR Disposition: HOME/ ROUTINE Referrals: Oliver Cooper MD [Primary Care Provider] -
== END 2017-11-19 15:27 | disposition home or self-care (01) | DRG 813 ==
LOC: ED 18:55 → ERH 23:22 → 2RSO 11-15 00:46 → 5RNO 11-17 16:26
PROVIDERS: ADMIT Internal Medicine; ATTEND Internal Medicine
DX: K52.9 Noninfective gastroenteritis and colitis, unspecified (principal); E87.6 Hypokalemia; F20.9 Schizophrenia, unspecified; E83.42 Hypomagnesemia; E86.0 Dehydration; E03.9 Hypothyroidism, unspecified; G40.909 Epilepsy, unspecified, not intractable, without status epilepticus; F17.210 Nicotine dependence, cigarettes, uncomplicated; F31.9 Bipolar disorder, unspecified; K80.20 Calculus of gallbladder without cholecystitis without obstruction; J45.909 Unspecified asthma, uncomplicated; K29.70 Gastritis, unspecified, without bleeding; K20.9 Esophagitis, unspecified; K76.0 Fatty (change of) liver, not elsewhere classified; D70.9 Neutropenia, unspecified; Z92.21 Personal history of antineoplastic chemotherapy; Z85.3 Personal history of malignant neoplasm of breast; Z85.43 Personal history of malignant neoplasm of ovary; Z85.42 Personal history of malignant neoplasm of other parts of uterus; Z90.13 Acquired absence of bilateral breasts and nipples; Z92.3 Personal history of irradiation; Z98.82 Breast implant status; Z80.3 Family history of malignant neoplasm of breast; Z85.41 Personal history of malignant neoplasm of cervix uteri; Z90.710 Acquired absence of both cervix and uterus